=== PATIENT | male | born 1930 | race Caucasian/White ===

== ENCOUNTER → 2018-09-12 | Outpatient (CLI) | payer MEDICARE ==
[2018-09-12 16:57] LABS: Basophils % (A) 0 %; Eosinophils # (A) 0.1 k/uL (0-0.7); Eosinophils % (A) 1 %; HCT 38.9 % (39.0-53.0); HGB 12.8 gm/dL (13.0-17.5); Lymphocytes # (A) 2.1 k/uL (1.0-4.8); Lymphocytes % (A) 20 %; MCH 29.5 pg (25.0-35.0); MCHC 32.8 g/dL (31.0-37.0); MCV 89.9 fL (80.0-100.0); Mean Platelet Volume 6.9; Monocytes # (A) 0.6 k/uL (0-1.0); Monocytes % (A) 6 %; Neutrophils # (A) 7.6 k/uL (1.3-7.7); Neutrophils % (A) 72 %; Platelet Count 334 k/uL (150-450); RBC 4.32 m/uL (4.30-5.90); RDW 14.3 % (11.5-15.5); WBC 10.7 k/uL (3.8-10.6)
== END ==
LOC: LABWHC1 15:59
DX: R19.5 Other fecal abnormalities (principal)
CPT/HCPCS: 36415; 85025

== ENCOUNTER → 2018-10-05 | Outpatient (CLI) | payer MEDICARE ==
--- NOTE | 2018-10-05 14:59 | CT ---
EXAMINATION TYPE: CT abdomen w con DATE OF EXAM: 10/05/2018 COMPARISON: CT abdomen and pelvis August 17, 2012 HISTORY: RUQ swelling, diarrhea. CT DLP: 424 mGycm, Automated Exposure Control for Dose Reduction was Utilized. CONTRAST: CT scan of the abdomen is performed with oral and with IV Contrast, patient injected with 80 mL of Is ovue 300. FINDINGS: LUNG BASES: Dependent atelectasis both bases is present. There is moderate to severe coronary artery calcification in the RCA distribution redemonstrated. LIVER/GB: No significant abnormality is appreciated. PANCREAS: Moderate generalized pancreas atrophy is progressed from prior CT. SPLEEN: No significant abnormality is seen. ADRENALS: No significant abnormality is seen. KIDNEYS: Symmetric cortical medullary uptake and excretion from both kidneys without pyelocaliectasis . Prominent bilateral renal pelvis is consistent with extrarenal pelvises noted on current study new from prior. BOWEL: Oral contrast reaches level of cecum. Normal contrast-filled appendix is seen inferior from ce cum. No suspicious small or large bowel dilatation. Prominence of colonic fecal material noted extend ing into the visualized portion of the sigmoid colon. LYMPH NODES: No greater than 1cm abdominal lymph nodes are appreciated. OSSEOUS STRUCTURES: Mild to moderate disc space narrowing L2-L3 and L3-L4 levels with mild multilevel anterior spurring. Slight levoconvex scoliotic curvature centered L3 level noted on current study. OTHER: Mild to moderate calcified plaque of aorta extends into branch vessels. IMPRESSION: 1. Normal-size appendix. No bowel obstruction. Mild to moderate diffuse colonic fecal stasis felt pre sent.
== END | disposition home or self-care (01) ==
LOC: RADCTMAIN 13:12
PROVIDERS: ATTEND Internal Medicine
DX: R19.7 Diarrhea, unspecified (principal); R19.01 Right upper quadrant abdominal swelling, mass and lump; E87.8 Other disorders of electrolyte and fluid balance, not elsewhere classified
CPT/HCPCS: 82565; 84520; 74160; 36415; Q9967

== ENCOUNTER 2018-10-19 22:11 | Inpatient (IN) | payer MEDICARE ==
[2018-10-19] MEDS ORDERED: SODIUM CHLORIDE 0.9% 1,000 ML IV STA (22:19)
[2018-10-19] MEDS ORDERED: MORPHINE SULFATE 4 MG/ML SYRINGE IV STA (22:19)
[2018-10-19] MEDS ORDERED: PANTOPRAZOLE 40 MG/10 ML VIAL IVP STA (22:19)
[2018-10-19] MEDS: ONDANSETRON 4 MG/2 ML VIAL IVP STA ×2 (23:18→23:22)
[2018-10-19 23:39] LABS: Basophils % (A) 0 %; Eosinophils # (A) 0.1 k/uL (0-0.7); Eosinophils % (A) 1 %; HCT 41.4 % (39.0-53.0); HGB 13.4 gm/dL (13.0-17.5); Lymphocytes # (A) 1.7 k/uL (1.0-4.8); Lymphocytes % (A) 12 %; MCH 29.1 pg (25.0-35.0); MCHC 32.4 g/dL (31.0-37.0); MCV 89.7 fL (80.0-100.0); Mean Platelet Volume 6.3; Monocytes # (A) 0.6 k/uL (0-1.0); Monocytes % (A) 4 %; Neutrophils # (A) 11.6 k/uL (1.3-7.7); Neutrophils % (A) 82 %; Platelet Count 343 k/uL (150-450); RBC 4.61 m/uL (4.30-5.90); RDW 13.8 % (11.5-15.5); WBC 14.1 k/uL (3.8-10.6)
[2018-10-20 00:13] LABS: Appearance,Urine Cloudy (Clear); Bacteria,Urine Rare /hpf; Bilirubin,Urine Negative (Negative); Blood,Urine Small (Negative); Color,Urine Yellow; Glucose,Urine (UA) Negative (Negative); Hyaline Casts,Urine 4 /lpf (0-2); Ketones,Urine Negative (Negative); Leukocyte Esterase,Urine Large (Negative); Mucus,Urine Occasional /hpf; Nitrite,Urine Negative (Negative); Protein,Urine 1+ (Negative); RBC,Urine 9 /hpf (0-5); Specific Gravity,Urine 1.015 (1.001-1.035); Urobilinogen,Urine <2.0 mg/dL (<2.0); WBC,Urine 57 /hpf (0-5)
[2018-10-20 00:19] LABS: Albumin 4.4 g/dL (3.5-5.0); Calcium 9.2 mg/dL (8.4-10.2); Potassium 4.3 mmol/L (3.5-5.1); Total Bilirubin 0.8 mg/dL (0.2-1.3); Total Protein 7.2 g/dL (6.3-8.2)
--- NOTE | 2018-10-20 01:05 | ED ---
Nausea/Vomiting/Diarrhea HPI - General Chief complaint: Nausea/Vomiting/Diarrhea Stated complaint: Abd pain Time Seen by Provider: 10/19/18 22:19 Source: patient, RN notes reviewed, old records reviewed Mode of arrival: EMS Limitations: no limitations - History of Present Illness Initial comments: This is a 88-year-old male the ER for evaluation per patient is poor strain patient's is poor historian history obtained from family. Patient is doing a bowel prep for evaluation of diarrhea by colonoscopy. Scheduled for tomorrow. Patient began to have severe pain nausea and no output with bowel starting prep. Patient resents today with severe pain MD complaint: nausea, diarrhea, abdominal pain -: hour(s) Associated Abdominal Pain: Yes Location: diffuse Radiation: none Severity: moderate Severity scale (1-10): 6 Quality: aching, dull Consistency: constant Improves with: none Worsens with: none Associated Symptoms: loss of appetite, nausea/vomiting, weakness - Related Data Home Medications Medication Instructions Recorded Confirmed Aspirin 325 mg PO DAILY 10/19/18 10/19/18 Atenolol [Tenormin] 25 mg PO DAILY 10/19/18 10/19/18 Benazepril [Lotensin] 5 mg PO HS 10/19/18 10/19/18 Calcium Carbonate [Calcium] 600 mg PO DAILY 10/19/18 10/19/18 Dorzolamide HCl/Pf [Dorzolamide 2% 1 drop BOTH EYES BID 10/19/18 10/19/18 Eye Drop] Furosemide [Lasix] 20 mg PO DAILY 10/19/18 10/19/18 Insulin Aspart Protam & Aspart 10 unit SQ HS 10/19/18 10/19/18 [NovoLOG MIX 70-30 Flexpen] Insulin Aspart Protam & Aspart 26 unit SQ QAM 10/19/18 10/19/18 [Novolog Mix 70-30 Flexpen Syrn] Isosorbide Mononitrate [Isosorbide 30 mg PO DAILY 10/19/18 10/19/18 Mononitrate ER] Multivitamins, Thera [Multivitamin 1 tab PO DAILY 10/19/18 10/19/18 (formulary)] Nitroglycerin Sl Tabs [Nitrostat] 0.4 mg SUBLINGUAL Q5M PRN 10/19/18 10/19/18 Ranitidine HCl 150 mg PO HS 10/19/18 10/19/18 Allergies Allergy/AdvReac Type Severity Reaction Status Date / Time No Known Allergies Allergy Verified 10/19/18 23:27 Review of Systems ROS Statement: Those systems with pertinent positive or pertinent negative responses have been documented in the HPI. ROS Other: All systems not noted in ROS Statement are negative. Past Medical History Past Medical History: Coronary Artery Disease (CAD), Dementia, Diabetes Mellitus, GERD/Reflux, Hypertension Additional Past Medical History / Comment(s): frequent diarrhea with bleeding at the beginning x4 mos-buttocks and coccyx raw,pedal edema,incontinent urine,payton catheter present-following with Dr Fan-very dark urine with foul odor History of Any Multi-Drug Resistant Organisms: None Reported Past Surgical History: Heart Catheterization With Stent Additional Past Surgical History / Comment(s): heart stents x4 Past Anesthesia/Blood Transfusion Reactions: No Reported Reaction Additional Past Anesthesia/Blood Transfusion Reaction / Comment(s): never has had general anesthesia Date of Last Stent Placement:: 30yrs ago Past Psychological History: No Psychological Hx Reported Smoking Status: Former smoker Past Alcohol Use History: None Reported Past Drug Use History: None Reported - Past Family History Mother Family Medical History: No Reported History General Exam Limitations: no limitations General appearance: alert, in no apparent distress Head exam: Present: atraumatic, normocephalic, normal inspection Eye exam: Present: normal appearance, PERRL, EOMI. Absent: scleral icterus, conjunctival injection, periorbital swelling ENT exam: Present: normal exam, mucous membranes moist Neck exam: Present: normal inspection. Absent: tenderness, meningismus, lymphadenopathy Respiratory exam: Present: normal lung sounds bilaterally. Absent: respiratory distress, wheezes, rales, rhonchi, stridor Cardiovascular Exam: Present: regular rate, normal rhythm, normal heart sounds. Absent: systolic murmur, diastolic murmur, rubs, gallop, clicks GI/Abdominal exam: Present: soft, distended, normal bowel sounds. Absent: tenderness, guarding, rebound, rigid Extremities exam: Present: normal inspection, full ROM, normal capillary refill. Absent: tenderness, pedal edema, joint swelling, calf tenderness Back exam: Present: normal inspection Neurological exam: Present: alert, oriented X3, CN II-XII intact Psychiatric exam: Present: normal affect, normal mood Skin exam: Present: warm, dry, intact, normal color. Absent: rash Course Vital Signs 10/19/18 10/20/18 10/20/18 22:50 01:29 02:42 Temperature 97.4 F L 97.9 F Pulse Rate 91 56 L 58 L Respiratory 18 18 18 Rate Blood Pressure 140/89 145/58 134/67 O2 Sat by Pulse 95 99 95 Oximetry - Reevaluation(s) Reevaluation #1: 10/20/18 02:51 Medical records reviewed Reevaluation #2: 10/20/18 02:51 Patient currently having persistent diarrheal bowel movements, still with abdominal pain no nausea vomiting Medical Decision Making - Medical Decision Making 88 male the ER for evaluation of bowel prep. Patient has ileus, will admit for GI evaluation - Lab Data Result diagrams: 10/19/18 23:15 10/19/18 23:15 Lab Results 10/19/18 10/19/18 10/19/18 Range/Units 23:15 23:15 23:15 WBC 14.1 H (3.8-10.6) k/uL RBC 4.61 (4.30-5.90) m/uL Hgb 13.4 (13.0-17.5) gm/dL Hct 41.4 (39.0-53.0) % MCV 89.7 (80.0-100.0) fL MCH 29.1 (25.0-35.0) pg MCHC 32.4 (31.0-37.0) g/dL RDW 13.8 (11.5-15.5) % Plt Count 343 (150-450) k/uL Neutrophils % 82 % Lymphocytes % 12 % Monocytes % 4 % Eosinophils % 1 % Basophils % 0 % Neutrophils # 11.6 H (1.3-7.7) k/uL Lymphocytes # 1.7 (1.0-4.8) k/uL Monocytes # 0.6 (0-1.0) k/uL Eosinophils # 0.1 (0-0.7) k/uL Basophils # 0.0 (0-0.2) k/uL Sodium 134 L (137-145) mmol/L Potassium 4.3 (3.5-5.1) mmol/L Chloride 97 L (98-107) mmol/L Carbon Dioxide 27 (22-30) mmol/L Anion Gap 10 mmol/L BUN 19 (9-20) mg/dL Creatinine 1.13 (0.66-1.25) mg/dL Est GFR (CKD-EPI)AfAm 68 (>60 ml/min/1.73 sqM) Est GFR (CKD-EPI)NonAf 58 (>60 ml/min/1.73 sqM) Glucose 204 H (74-99) mg/dL Plasma Lactic Acid Anuj 1.4 (0.7-2.0) mmol/L Calcium 9.2 (8.4-10.2) mg/dL Total Bilirubin 0.8 (0.2-1.3) mg/dL AST 40 (17-59) U/L ALT 27 (21-72) U/L Alkaline Phosphatase 89 (38-126) U/L Creatine Kinase 207 H (55-170) U/L Total Protein 7.2 (6.3-8.2) g/dL Albumin 4.4 (3.5-5.0) g/dL Amylase 56 (30-110) U/L Lipase 30 (23-300) U/L Urine Color Urine Appearance (Clear) Urine pH (5.0-8.0) Ur Specific [place] (1.001-1.035) Urine Protein (Negative) Urine Glucose (UA) (Negative) Urine Ketones (Negative) Urine Blood (Negative) Urine Nitrite (Negative) Urine Bilirubin (Negative) Urine Urobilinogen (<2.0) mg/dL Ur Leukocyte Esterase (Negative) Urine RBC (0-5) /hpf Urine WBC (0-5) /hpf Urine WBC Clumps (None) /hpf Urine Bacteria (None) /hpf Hyaline Casts (0-2) /lpf Urine Mucus (None) /hpf 10/19/18 Range/Units 23:36 WBC (3.8-10.6) k/uL RBC (4.30-5.90) m/uL Hgb (13.0-17.5) gm/dL Hct (39.0-53.0) % MCV (80.0-100.0) fL MCH (25.0-35.0) pg MCHC (31.0-37.0) g/dL RDW (11.5-15.5) % Plt Count (150-450) k/uL Neutrophils % % Lymphocytes % % Monocytes % % Eosinophils % % Basophils % % Neutrophils # (1.3-7.7) k/uL Lymphocytes # (1.0-4.8) k/uL Monocytes # (0-1.0) k/uL Eosinophils # (0-0.7) k/uL Basophils # (0-0.2) k/uL Sodium (137-145) mmol/L Potassium (3.5-5.1) mmol/L Chloride (98-107) mmol/L Carbon Dioxide (22-30) mmol/L Anion Gap mmol/L BUN (9-20) mg/dL Creatinine (0.66-1.25) mg/dL Est GFR (CKD-EPI)AfAm (>60 ml/min/1.73 sqM) Est GFR (CKD-EPI)NonAf (>60 ml/min/1.73 sqM) Glucose (74-99) mg/dL Plasma Lactic Acid Anuj (0.7-2.0) mmol/L Calcium (8.4-10.2) mg/dL Total Bilirubin (0.2-1.3) mg/dL AST (17-59) U/L ALT (21-72) U/L Alkaline Phosphatase (38-126) U/L Creatine Kinase (55-170) U/L Total Protein (6.3-8.2) g/dL Albumin (3.5-5.0) g/dL Amylase (30-110) U/L Lipase (23-300) U/L Urine Color Yellow Urine Appearance Cloudy (Clear) Urine pH 5.0 (5.0-8.0) Ur Specific [place] 1.015 (1.001-1.035) Urine Protein 1+ H (Negative) Urine Glucose (UA) Negative (Negative) Urine Ketones Negative (Negative) Urine Blood Small H (Negative) Urine Nitrite Negative (Negative) Urine Bilirubin Negative (Negative) Urine Urobilinogen <2.0 (<2.0) mg/dL Ur Leukocyte Esterase Large H (Negative) Urine RBC 9 H (0-5) /hpf Urine WBC 57 H (0-5) /hpf Urine WBC Clumps Few H (None) /hpf Urine Bacteria Rare H (None) /hpf Hyaline Casts 4 H (0-2) /lpf Urine Mucus Occasional H (None) /hpf - Radiology Data Radiology results: report reviewed (X-ray abdominal series and chest shows positive ileus), image reviewed Disposition Clinical Impression: Ileus, Diarrhea Disposition: HOME SELF-CARE Condition: Good Is patient prescribed a controlled substance at d/c from ED?: No
--- NOTE | 2018-10-20 01:21 | XR ---
EXAM: XR Abdomen 2 Views With XR Chest CLINICAL HISTORY: Pain TECHNIQUE: Frontal view of the chest, frontal view of the abdomen/pelvis and upright or decubitus view of the abdomen. COMPARISON: No relevant prior studies available. FINDINGS: Lungs: clear. Pleural space: Unremarkable. No pneumothorax. Heart: Unremarkable. No cardiomegaly. Mediastinum: Unremarkable. Intraperitoneal space: No free air. Gastrointestinal tract: Moderate dilatation of transverse colon measuring up to 8.6 cm, suggest ileus versus distal colonic obstruction. Bones/joints: Osteopenia. Moderate degenerative changes Vasculature: Minimally calcified aorta. IMPRESSION: Moderate dilatation of transverse colon measuring up to 8.6 cm, suggest ileus versus distal colonic obstruction.
[2018-10-20] MEDS ORDERED: SODIUM CHLORIDE 0.9% 1,000 ML IV ONE (01:47)
[2018-10-20] MEDS ORDERED: NITROGLYCERIN SL TABS 0.4 MG TAB SUBLINGUAL PRN (05:14)
[2018-10-20] MEDS ORDERED: IOPAMIDOL-300 CONTRAST 30 ML VIAL (ORAL USE) PO PRN ×3 (06:08→10:54)
--- NOTE | 2018-10-20 06:29 | P.HPIM ---
History of Present Illness H&P Date: 10/20/18 Chief Complaint: Abdominal pain 88-year-old male with history of diabetes CAD and hypertension Patient presents to the hospital today due to severe acute abdominal pain while taking the bowel prep for planned colonoscopy as an outpatient tomorrow. Patient reports severe abdominal distention feeling nauseous with pain all over his abdomen nonradiating otherwise rated as 6-8 out of 10 constant pain. Associated with feeling nauseous no vomiting. Patient has chronic indwelling Payton catheter. Patient indicates that he has chronic diarrhea for which the plan was to have a colonoscopy done in the morning. He's been having diarrhea for over 4 months now nonbloody. Patient also reports some weight loss because of the diarrhea. No history of IBD. No history of C. diff. Patient otherwise denies any fevers or chills denies any confusion or altered mental status, denies any chest pain or trouble breathing In the ER x-ray of the abdomen showed megacolon of the transverse colon measuring 8.6 cm however not associated with any systemic toxicity. Labs showed elevated white count but otherwise his electrolytes were unremarkable. Review of Systems Pertinent positives as noted in HPI. All other systems were reviewed and are negative Past Medical History Past Medical History: Coronary Artery Disease (CAD), Dementia, Diabetes Mellitus, GERD/Reflux, Hypertension Additional Past Medical History / Comment(s): frequent diarrhea with bleeding at the beginning x4 mos-buttocks and coccyx raw,pedal edema,incontinent urine,payton catheter present-following with Dr Fan-very dark urine with foul odor History of Any Multi-Drug Resistant Organisms: None Reported Past Surgical History: Heart Catheterization With Stent Additional Past Surgical History / Comment(s): heart stents x4 Past Anesthesia/Blood Transfusion Reactions: No Reported Reaction Additional Past Anesthesia/Blood Transfusion Reaction / Comment(s): never has had general anesthesia Date of Last Stent Placement:: 30yrs ago Past Psychological History: No Psychological Hx Reported Smoking Status: Former smoker Past Alcohol Use History: None Reported Additional Past Alcohol Use History / Comment(s): quit smoking cigars 10-15 yrs ago,smoked occas Past Drug Use History: None Reported - Past Family History Mother Family Medical History: No Reported History Medications and Allergies Home Medications Medication Instructions Recorded Confirmed Type Aspirin 325 mg PO DAILY 10/19/18 10/19/18 History Atenolol [Tenormin] 25 mg PO DAILY 10/19/18 10/19/18 History Benazepril [Lotensin] 5 mg PO HS 10/19/18 10/19/18 History Calcium Carbonate [Calcium] 600 mg PO DAILY 10/19/18 10/19/18 History Dorzolamide HCl/Pf [Dorzolamide 2% 1 drop BOTH EYES BID 10/19/18 10/19/18 History Eye Drop] Furosemide [Lasix] 20 mg PO DAILY 10/19/18 10/19/18 History Insulin Aspart Protam & Aspart 10 unit SQ HS 10/19/18 10/19/18 History [NovoLOG MIX 70-30 Flexpen] Insulin Aspart Protam & Aspart 26 unit SQ QAM 10/19/18 10/19/18 History [Novolog Mix 70-30 Flexpen Syrn] Isosorbide Mononitrate [Isosorbide 30 mg PO DAILY 10/19/18 10/19/18 History Mononitrate ER] Multivitamins, Thera [Multivitamin 1 tab PO DAILY 10/19/18 10/19/18 History (formulary)] Nitroglycerin Sl Tabs [Nitrostat] 0.4 mg SUBLINGUAL Q5M PRN 10/19/18 10/19/18 History Ranitidine HCl 150 mg PO HS 10/19/18 10/19/18 History Allergies Allergy/AdvReac Type Severity Reaction Status Date / Time No Known Allergies Allergy Verified 10/19/18 23:27 Physical Exam Vitals: Vital Signs Temp Pulse Pulse Resp BP BP Pulse Ox 10/20/18 03:13 97.8 F 57 L 18 144/57 95 10/20/18 02:42 97.9 F 58 L 18 134/67 95 10/20/18 01:29 56 L 18 145/58 99 10/19/18 22:50 97.4 F L 91 18 140/89 95 Intake and Output 10/19/18 10/19/18 10/20/18 14:59 22:59 06:59 Output Total 400 Balance -400 Output: Urine 400 Other: Voiding Method Indwelling Catheter Weight 71.214 kg 70.7 kg Constitutional: No acute distress, conversant, pleasant, sleeping easy arousable Eyes: Anicteric sclerae, moist conjunctiva, no lid-lag Pupils equal round reactive to light ENMT: NC/AT Oropharynx clear, no erythema, or exudates Neck: Supple, FROM, no masses, or JVD No carotid bruits No thyromegaly Lungs: Clear to auscultation Clear to percussion Normal respiratory effort, no accessory muscle use Cardiovascular: Heart regular in rate and rhythm, No murmurs, gallops, or rubs pedal edema bilateral Abdominal: Soft, distended upper abd, audible bowel sounds, no tenderness to palpation Nontender, no guarding, rebound or rigidity Abdomen moving with respiration exaggerated bowel sounds No hepatomegaly, No splenomegaly No palpable mass No abdominal wall hernia noted chronic indwelling payton cath in place raw looking skin around the anus soiled with fecal material no evidence of bleeding Skin: Normal temperature, tone, texture, turgor No induration No subcutaneous nodules No rash, lesions No ulcers Extremities: No digital cyanosis No clubbing Pedal pulses not palpabable due to pedal edema bilaterally Radial pulses intact and symmetrical No calf tenderness capillary refill immediate Psychiatric: Alert and oriented to person, place Appropriate affect fair judgment Neuro Muscles Strength 4/5 in all 4 extremities Sensation to light touch grossly present throughout Cranial nerves II-XII grossly intact No focal sensory deficits Lymphatics: no palpable cervical or supraclavicular , or inguinal lymph nodes Results CBC & Chem 7: 10/19/18 23:15 10/19/18 23:15 Labs: Abnormal Lab Results - Last 24 Hours (Table) 10/19/18 10/19/18 10/19/18 Range/Units 23:15 23:15 23:36 WBC 14.1 H (3.8-10.6) k/uL Neutrophils # 11.6 H (1.3-7.7) k/uL Sodium 134 L (137-145) mmol/L Chloride 97 L (98-107) mmol/L Glucose 204 H (74-99) mg/dL Creatine Kinase 207 H (55-170) U/L Urine Protein 1+ H (Negative) Urine Blood Small H (Negative) Ur Leukocyte Esterase Large H (Negative) Urine RBC 9 H (0-5) /hpf Urine WBC 57 H (0-5) /hpf Urine WBC Clumps Few H (None) /hpf Urine Bacteria Rare H (None) /hpf Hyaline Casts 4 H (0-2) /lpf Urine Mucus Occasional H (None) /hpf Thrombosis Risk Factor Assmnt - Choose All That Apply Each Risk Factor Represents 3 Points: Age 75 years or older Thrombosis Risk Factor Assessment Total Risk Factor Score: 3 Thrombosis Risk Factor Assessment Level: Moderate Risk Assessment and Plan Assessment: 88-year-old male with history of diabetes, CAD, hypertension. Admitted as inpatient with anticipated length of stay more than 48 hours due to megacolon and abdominal pain. Patient was found to be nontoxic, x-ray revealed transverse colon diameter of 8.6 cm patient , we'll follow up on CAT scan of the abdomen and surgery recommendations. Patient vital signs are stable he was started on broad-spectrum antibiotics. electrolytes are unremarkable. Plan: Megacolon, nontoxic, patient was receiving bowel prep for planned C scope today as an outpatient. unknown underlying cause (IBD, C.diff needs to be ruled out) Chronic diarrhea Chronic indwelling Payton catheter Chronic conditions Chronic diarrhea Hypertension Diabetes mellitus GERD CAD Plan Continue with IV fluid hydration Start Flagyl Continue Rocephin Nothing by mouth Surgery consult Check computed tomography scan of the abdomen Serial abdominal exam Insulin sliding scale Check C. diff Close monitoring of electrolytes and hemoglobin Transferred to stepdown for closer monitoring of the patient if patient becomes toxic (fever, tachycardia, altered mental status, hypotensive) he would need to be transferred to ICU DVT prophylaxis mechanical Surrogate decision-maker: Patient CODE STATUS: No code Discussed with: Patient, ER, RN Anticipated discharge: 48-[address]: Pending clinical course A total of 60 minutes was spent on the care of this complex patient more than 50% of the time was spent in counseling and care coordination.
[2018-10-20] MEDS ORDERED: PANTOPRAZOLE 40 MG TABLET PO SCH (07:30)
[2018-10-20 08:01] LABS: Basophils % (A) 0 %; Eosinophils # (A) 0.1 k/uL (0-0.7); Eosinophils % (A) 1 %; HCT 37.7 % (39.0-53.0); HGB 12.4 gm/dL (13.0-17.5); Lymphocytes # (A) 2.9 k/uL (1.0-4.8); Lymphocytes % (A) 27 %; MCH 29.7 pg (25.0-35.0); MCHC 32.8 g/dL (31.0-37.0); MCV 90.5 fL (80.0-100.0); Monocytes # (A) 0.5 k/uL (0-1.0); Monocytes % (A) 5 %; Neutrophils # (A) 6.8 k/uL (1.3-7.7); Neutrophils % (A) 65 %; Platelet Count 284 k/uL (150-450); RBC 4.17 m/uL (4.30-5.90); RDW 13.8 % (11.5-15.5); WBC 10.4 k/uL (3.8-10.6)
[2018-10-20 08:14] LABS: Albumin 3.3 g/dL (3.5-5.0); Calcium 8.3 mg/dL (8.4-10.2); Potassium 3.7 mmol/L (3.5-5.1); Total Bilirubin 0.4 mg/dL (0.2-1.3); Total Protein 5.8 g/dL (6.3-8.2)
[2018-10-20] MEDS: INSULIN ASPART (NovoLOG) 100 UNIT/ML VIAL SQ SCH ×4 (08:36→21:27)
--- NOTE | 2018-10-20 08:57 | CT ---
EXAMINATION TYPE: CT abdomen pelvis w con DATE OF EXAM: 10/20/2018 COMPARISON: 10/05/2018 HISTORY: ileus, megacolon CT DLP: 737.1 mGycm Automated exposure control for dose reduction was used. TECHNIQUE: Helical acquisition of images was performed from the lung bases through the pelvis. CONTRAST: Performed with Oral Contrast and with IV Contrast, patient injected with 100 mL of Isovue 300. FINDINGS: There is diffuse long segment bowel wall thickening and pericolonic inflammatory fat stranding throug hout the entirety of the sigmoid colon extending into the rectum there is also fascial thickening and few prominent mesial rectal lymph nodes that are sub-5 mm. There is very mild inflammatory fat stran ding surrounding the descending colon and prominence of the caliber of the remainder of the colon wit hout dilatation with the transverse colon measuring up to 5 cm and displaying air-fluid levels. There is some slightly high density mixed oral contrast that extends through the sigmoid colon into the re ctum. Findings favor partial/early colonic obstruction without complete obstruction. There is no jose colonic abscess at this time. The lung bases demonstrate mild emphysematous change. Probable focus of atelectasis at the right lung base. Cardiomediastinal silhouette appears mildly enlarged. There is a very small hiatal hernia seen . Hypoattenuation that is wedge-shaped is seen in segment IVb of the liver, a typical location for foca l fatty infiltration with more diffuse mild degree hepatic steatosis seen throughout the liver. There is mild pancreatic atrophy without ductal dilatation. 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 There are bilateral extrarenal p elvises sees without hydronephrosis. The adrenal glands are symmetric and unremarkable. Spleen is als o unremarkable. There is moderate atherosclerosis of the upper abdominal aorta and severe of the dist al abdominal aorta and its branches. There is air seen multifocally through the nondistended urinary bladder with a Berg catheter in plac e. Urinary bladder is nondistended. Correlate with urinalysis to exclude cystitis, however air is lik michael from placement of the urinary bladder catheter. Prostate gland is heterogenous. The osseous structures appear grossly intact with moderate degenerative changes of the lumbosacral sp ine. There are few scattered nonspecific punctate sclerotic foci. Cholelithiasis is incidentally note d. IMPRESSION: 1. DIFFUSE LONG SEGMENT COLORECTAL WALL THICKENING AND EXTENSIVE INFLAMMATORY FAT STRANDING EXTENDING INTO THE DESCENDING COLON. AT THE DESCENDING COLON AND SIGMOID JUNCTION AN AREA OF NARROWING MAY REP RESENT COLONIC SPASM. FINDINGS LIKELY REPRESENT ACUTE COLITIS OF INFECTIOUS OR INFLAMMATORY ETIOLOGY GIVEN THE LONG SEGMENT INVOLVEMENT. HOWEVER COLONOSCOPY IS RECOMMENDED AFTER RESOLUTION TO EXCLUDE NE OPLASM. 2. THE ABOVE FINDINGS RESULT IN PARTIAL/EARLY COLONIC OBSTRUCTION WITHOUT COMPLETE OBSTRUCTION SEEN. 3. NUMEROUS FOCI OF AIR WITHIN THE URINARY BLADDER LIKELY FROM INSTRUMENTATION HOWEVER URINALYSIS IS RECOMMENDED TO ENSURE NO SUPERIMPOSED CYSTITIS.
[2018-10-20] MEDS: ATENOLOL 25 MG TAB PO SCH (09:00)
[2018-10-20] MEDS ORDERED: CALCIUM CARBONATE 500 MG CHEWABLE PO SCH (09:00)
[2018-10-20] MEDS ORDERED: PANTOPRAZOLE 40 MG/10 ML VIAL IVP SCH (09:15)
[2018-10-20] MEDS: MULTIVITAMINS, THERA 1 EACH TAB PO SCH (09:19)
[2018-10-20] MEDS: ISOSORBIDE MONONITRATE ER 30 MG TAB.ER.24H PO SCH (09:25)
[2018-10-20] MEDS: metroNIDAZOLE-NS PMX 500 MG in SALINE 1 100ML.BAG IVPB SCH ×2 (09:25→16:39)
[2018-10-20 11:37] LABS: Glucose,Whole Blood 148 mg/dL (75-99)
--- NOTE | 2018-10-20 13:26 | P.PN ---
Subjective Progress Note Date: 10/20/18 Principal diagnosis: diarrhea Patient is an 88 yo CM with a hx of chronic diarrhea, dementia, chronic payton cath, DM 2, CAD, and HTN who presented to the ED with complaints of severe abdominal pain. Patient had been taking a bowel prep for colonsocopy. IN the ED he underwent an extensive evaluation. His vital signs were within normal limits. Laboratory analysis showed WBC 14.1. Urinalysis was consistent with chronic payton. Acute abdominal series showed colonic obstruction. He was started on IVF and abx and was admitted. There was concern for megacolon and CT was ordered whi ch showed Colitis with partial colonic obstruction. GI and surgery wer consulted. Surgery recommends IV ABX and repeat imaging. Patient seen and examined at bedside. Family is present patient has slight dementia and family aids with hx taking. Patient still with diarrhea, no abd pain. Seems to be doing better than yesterday. Denies CP and SOB. Objective - Vital Signs Vital signs: Vital Signs Temp 98.9 F 10/20/18 07:00 Pulse 51 L 10/20/18 07:00 Resp 16 10/20/18 07:00 BP 131/63 10/20/18 07:00 Pulse Ox 97 10/20/18 07:00 Intake & Output 10/19/18 10/20/18 10/20/18 18:59 06:59 18:59 Intake Total 100 Output Total 400 400 Balance -400 -300 Weight 70.7 kg Intake: Intake, IV Titration 100 Amount metroNIDAZOLE-NS PMX 500 100 mg In Saline 1 100ml.bag @ 100 mls/hr IVPB Q8HR [facility] Rx#:[id number] Output: Urine 400 400 Other: Voiding Method Indwelling Catheter Indwelling Catheter # Bowel Movements 3 - Exam General: ill appearing, no distress, appears at stated age Derm: warm, dry Head: atraumatic, normocephalic, symmetric Eyes: EOMI, no lid lag, anicteric sclera Mouth: no lip lesion, mucus membranes moist Cardiovascular: S1S2 reg, no murmur, positive posterior tibial pulse bilateral, Lungs: CTA bilateral, no rhonchi, no rales , no accessory muscle use Abdominal: soft, nontender to palpation, no guarding, no appreciable organomegaly Ext: no gross muscle atrophy, no edema, no contractures Neuro: CN II-XI grossly intact, no focal neuro deficits Psych: Alert, oriented, appropriate affect, has some difficulty remembering - Labs CBC & Chem 7: 10/20/18 07:46 10/20/18 07:46 Labs: Abnormal Lab Results - Last 24 Hours (Table) 10/19/18 10/19/18 10/19/18 Range/Units 23:15 23:15 23:36 WBC 14.1 H (3.8-10.6) k/uL RBC (4.30-5.90) m/uL Hgb (13.0-17.5) gm/dL Hct (39.0-53.0) % Neutrophils # 11.6 H (1.3-7.7) k/uL Sodium 134 L (137-145) mmol/L Chloride 97 L (98-107) mmol/L Glucose 204 H (74-99) mg/dL POC Glucose (mg/dL) (75-99) mg/dL Calcium (8.4-10.2) mg/dL Creatine Kinase 207 H (55-170) U/L Total Protein (6.3-8.2) g/dL Albumin (3.5-5.0) g/dL Urine Protein 1+ H (Negative) Urine Blood Small H (Negative) Ur Leukocyte Esterase Large H (Negative) Urine RBC 9 H (0-5) /hpf Urine WBC 57 H (0-5) /hpf Urine WBC Clumps Few H (None) /hpf Urine Bacteria Rare H (None) /hpf Hyaline Casts 4 H (0-2) /lpf Urine Mucus Occasional H (None) /hpf 10/20/18 10/20/18 10/20/18 Range/Units 07:46 07:46 11:25 WBC (3.8-10.6) k/uL RBC 4.17 L (4.30-5.90) m/uL Hgb 12.4 L (13.0-17.5) gm/dL Hct 37.7 L (39.0-53.0) % Neutrophils # (1.3-7.7) k/uL Sodium (137-145) mmol/L Chloride (98-107) mmol/L Glucose 152 H (74-99) mg/dL POC Glucose (mg/dL) 148 H (75-99) mg/dL Calcium 8.3 L (8.4-10.2) mg/dL Creatine Kinase (55-170) U/L Total Protein 5.8 L (6.3-8.2) g/dL Albumin 3.3 L (3.5-5.0) g/dL Urine Protein (Negative) Urine Blood (Negative) Ur Leukocyte Esterase (Negative) Urine RBC (0-5) /hpf Urine WBC (0-5) /hpf Urine WBC Clumps (None) /hpf Urine Bacteria (None) /hpf Hyaline Casts (0-2) /lpf Urine Mucus (None) /hpf Microbiology - Last 24 Hours (Table) 10/19/18 23:36 Urine Culture - Preliminary Urine,Voided Assessment and Plan Assessment: Colitis with colon obstruction - Continue Rocephin and flagyl - IVF - GI and surgery recs - Full liquid diet per surgery - Pain control - Antiemetics - c diff pending Chronic diarrhea - GI recs HTN - atenolol, lisinopril - hold X - follow BP - Controlled GERD - Protonix DM 2 - hold 70/30 CAD - ASA on hold incase procedure needed Chronic payton - no clinic signs of infection - continue outpatient follow-up DVT prophylaxis: Heparin Discussed with: Patient, family, nursing Anticipated discharge: 3-[address]: home A total of [35] minutes was spent on the care of this complex patient more than 50% of the time was spent in counseling and care coordination.
--- NOTE | 2018-10-20 14:27 | P.GSCN ---
History of Present Illness Consult date: 10/20/18 Reason for Consult: megacolon Requesting physician: Caden Chong History of present illness: CHIEF COMPLAINT: megacolon HISTORY OF PRESENT ILLNESS: 88 year old male who was admitted to the hospital with abdominal pain. General surgery was consulted for further evaluation. Patient's family is at the bedside and provides majority of HPI. Family states patient has had chronic diarrhea for the last 4 months. Patient was scheduled for colonoscopy outpatient today. He began his bowel prep yesterday and began having severe abdominal pain and came to the ER for further evaluation. Patient denies abdominal pain at this time. Denies nausea or vomiting. He reports brown liquid stools this morning. He is hungry and asking to eat. PAST MEDICAL HISTORY: See list. PAST SURGICAL HISTORY: See list. SOCIAL HISTORY: No illicit drug use. REVIEW OF SYSTEMS: CONSTITUTIONAL: Denies fever or chills. HEENT: Denies blurred vision, vision changes, or eye pain. Denies hemoptysis CARDIOVASCULAR: Denies chest pain or pressure. RESPIRATORY: No shortness of breath. GASTROINTESTINAL: Refer to HPI for pertinent findings HEMATOLOGIC: Denies bleeding disorders. GENITOURINARY: Denies any blood in urine. SKIN: Denies pruitis. Denies rash. PHYSICAL EXAM: VITAL SIGNS: Reviewed. GENERAL: Well-developed in no acute distress. HEENT: No sclera icterus. Extraocular movements grossly intact. Moist buccal mucosa. Head is atraumatic, normocephalic. ABDOMEN: Soft. Nondistended. Nontender. Positive bowel sounds. NEUROLOGIC: Alert and oriented x 2. Cranial nerves II through XII grossly intact. IMAGING: CT abdomen and pelvis: Diffuse long segment colorectal wall thickening and extensive inflammatory fat stranding extending into the descending colon. At the descending colon and sigmoid junction an area of narrowing may represent colonic spasm. Findings likely represent acute colitis or infectious or inflammatory etiology given the long segment involvement. Colonoscopy recommended after resolution to exclude neoplasm. Above findings result and partial/early colonic obstruction without complete obstruction. ASSESSMENT: 1. Abdominal pain 2. Colitis with partial colonic obstruction 3. Chronic diarrhea PLAN: 1. Continue antibiotics 2. Full liquid diet. Do not advance diet. 3. Repeat CT with oral contrast on Wednesday 4. If repeat CT does not show improvement or progresses to complete obstruction, surgical intervention recommend. Nurse practitioner note has been reviewed by physician. Signing provider agrees with the documented findings, assessment, and plan of care. Past Medical History Past Medical History: Coronary Artery Disease (CAD), Dementia, Diabetes Mellitus, GERD/Reflux, Hypertension Additional Past Medical History / Comment(s): frequent diarrhea with bleeding at the beginning x4 mos-buttocks and coccyx raw,pedal edema,incontinent urine,payton catheter present-following with Dr Fan-very dark urine with foul odor History of Any Multi-Drug Resistant Organisms: None Reported Past Surgical History: Heart Catheterization With Stent Additional Past Surgical History / Comment(s): heart stents x4 Past Anesthesia/Blood Transfusion Reactions: No Reported Reaction Additional Past Anesthesia/Blood Transfusion Reaction / Comm: never has had general anesthesia Date of Last Stent Placement:: 30yrs ago Past Psychological History: No Psychological Hx Reported Smoking Status: Former smoker Past Alcohol Use History: None Reported Additional Past Alcohol Use History / Comment(s): quit smoking cigars 10-15 yrs ago,smoked occas Past Drug Use History: None Reported - Past Family History Mother Family Medical History: No Reported History Medications and Allergies Home Medications Medication Instructions Recorded Confirmed Type Aspirin 325 mg PO DAILY 10/19/18 10/19/18 History Atenolol [Tenormin] 25 mg PO DAILY 10/19/18 10/19/18 History Benazepril [Lotensin] 5 mg PO HS 10/19/18 10/19/18 History Calcium Carbonate [Calcium] 600 mg PO DAILY 10/19/18 10/19/18 History Dorzolamide HCl/Pf [Dorzolamide 2% 1 drop BOTH EYES BID 10/19/18 10/19/18 History Eye Drop] Furosemide [Lasix] 20 mg PO DAILY 10/19/18 10/19/18 History Insulin Aspart Protam & Aspart 10 unit SQ HS 10/19/18 10/19/18 History [NovoLOG MIX 70-30 Flexpen] Insulin Aspart Protam & Aspart 26 unit SQ QAM 10/19/18 10/19/18 History [Novolog Mix 70-30 Flexpen Syrn] Isosorbide Mononitrate [Isosorbide 30 mg PO DAILY 10/19/18 10/19/18 History Mononitrate ER] Multivitamins, Thera [Multivitamin 1 tab PO DAILY 10/19/18 10/19/18 History (formulary)] Nitroglycerin Sl Tabs [Nitrostat] 0.4 mg SUBLINGUAL Q5M PRN 10/19/18 10/19/18 Hi story Ranitidine HCl 150 mg PO HS 10/19/18 10/19/18 History Allergies Allergy/AdvReac Type Severity Reaction Status Date / Time No Known Allergies Allergy Verified 10/19/18 23:27 Surgical - Exam Vital Signs Temp Pulse Resp BP Pulse Ox 97.4 F L 91 18 140/89 95 10/19/18 22:50 10/19/18 22:50 10/19/18 22:50 10/19/18 22:50 10/19/18 22:50 Results - Labs 10/20/18 07:46 10/20/18 07:46 Abnormal Lab Results - Last 24 Hours (Table) 10/19/18 10/19/18 10/19/18 Range/Units 23:15 23:15 23:36 WBC 14.1 H (3.8-10.6) k/uL RBC (4.30-5.90) m/uL Hgb (13.0-17.5) gm/dL Hct (39.0-53.0) % Neutrophils # 11.6 H (1.3-7.7) k/uL Sodium 134 L (137-145) mmol/L Chloride 97 L (98-107) mmol/L Glucose 204 H (74-99) mg/dL POC Glucose (mg/dL) (75-99) mg/dL Calcium (8.4-10.2) mg/dL Creatine Kinase 207 H (55-170) U/L Total Protein (6.3-8.2) g/dL Albumin (3.5-5.0) g/dL Urine Protein 1+ H (Negative) Urine Blood Small H (Negative) Ur Leukocyte Esterase Large H (Negative) Urine RBC 9 H (0-5) /hpf Urine WBC 57 H (0-5) /hpf Urine WBC Clumps Few H (None) /hpf Urine Bacteria Rare H (None) /hpf Hyaline Casts 4 H (0-2) /lpf Urine Mucus Occasional H (None) /hpf 10/20/18 10/20/18 10/20/18 Range/Units 07:46 07:46 11:25 WBC (3.8-10.6) k/uL RBC 4.17 L (4.30-5.90) m/uL Hgb 12.4 L (13.0-17.5) gm/dL Hct 37.7 L (39.0-53.0) % Neutrophils # (1.3-7.7) k/uL Sodium (137-145) mmol/L Chloride (98-107) mmol/L Glucose 152 H (74-99) mg/dL POC Glucose (mg/dL) 148 H (75-99) mg/dL Calcium 8.3 L (8.4-10.2) mg/dL Creatine Kinase (55-170) U/L Total Protein 5.8 L (6.3-8.2) g/dL Albumin 3.3 L (3.5-5.0) g/dL Urine Protein (Negative) Urine Blood (Negative) Ur Leukocyte Esterase (Negative) Urine RBC (0-5) /hpf Urine WBC (0-5) /hpf Urine WBC Clumps (None) /hpf Urine Bacteria (None) /hpf Hyaline Casts (0-2) /lpf Urine Mucus (None) /hpf Microbiology - Last 24 Hours (Table) 10/19/18 23:36 Urine Culture - Preliminary Urine,Voided Diabetes panel 10/19/18 10/20/18 Range/Units 23:15 07:46 Sodium 134 L 138 (137-145) mmol/L Potassium 4.3 3.7 (3.5-5.1) mmol/L Chloride 97 L 104 (98-107) mmol/L Carbon Dioxide 27 30 (22-30) mmol/L BUN 19 14 (9-20) mg/dL Creatinine 1.13 1.07 (0.66-1.25) mg/dL Glucose 204 H 152 H (74-99) mg/dL Calcium 9.2 8.3 L (8.4-10.2) mg/dL AST 40 25 (17-59) U/L ALT 27 27 (21-72) U/L Alkaline Phosphatase 89 71 (38-126) U/L Total Protein 7.2 5.8 L (6.3-8.2) g/dL Albumin 4.4 3.3 L (3.5-5.0) g/dL Calcium panel 10/19/18 10/20/18 Range/Units 23:15 07:46 Calcium 9.2 8.3 L (8.4-10.2) mg/dL Albumin 4.4 3.3 L (3.5-5.0) g/dL Pituitary panel 10/19/18 10/20/18 Range/Units 23:15 07:46 Sodium 134 L 138 (137-145) mmol/L Potassium 4.3 3.7 (3.5-5.1) mmol/L Chloride 97 L 104 (98-107) mmol/L Carbon Dioxide 27 30 (22-30) mmol/L BUN 19 14 (9-20) mg/dL Creatinine 1.13 1.07 (0.66-1.25) mg/dL Glucose 204 H 152 H (74-99) mg/dL Calcium 9.2 8.3 L (8.4-10.2) mg/dL Adrenal panel 10/19/18 10/20/18 Range/Units 23:15 07:46 Sodium 134 L 138 (137-145) mmol/L Potassium 4.3 3.7 (3.5-5.1) mmol/L Chloride 97 L 104 (98-107) mmol/L Carbon Dioxide 27 30 (22-30) mmol/L BUN 19 14 (9-20) mg/dL Creatinine 1.13 1.07 (0.66-1.25) mg/dL Glucose 204 H 152 H (74-99) mg/dL Calcium 9.2 8.3 L (8.4-10.2) mg/dL Total Bilirubin 0.8 0.4 (0.2-1.3) mg/dL AST 40 25 (17-59) U/L ALT 27 27 (21-72) U/L Alkaline Phosphatase 89 71 (38-126) U/L Total Protein 7.2 5.8 L (6.3-8.2) g/dL Albumin 4.4 3.3 L (3.5-5.0) g/dL
[2018-10-20] MEDS: DORZOLAMIDE HCL 2% DROPS 10 ML BTL BOTH EYES SCH ×2 (15:33→21:26)
--- NOTE | 2018-10-20 15:37 | P.CONS ---
History of Present Illness - Reason for Consult Consult date: 10/20/18 EGD colonoscopy Requesting physician: Caden Chong - Chief Complaint Nausea vomiting abdominal pain - History of Present Illness 88-year-old male dementia history obtained from medical attending and medical records. Patient was scheduled today with Dr. Carmen for EGD colonoscopy as an outpatient for evaluation of diarrhea. Patient started his bowel prep yesterday developed an increased nausea vomiting abdominal pain presented to ER for further evaluation. Abdominal x-rays moderate dilatation of transverse colon measuring up to 8.6 and meters suggests ileus versus distal colonic obstruction. CT abdomen diffuse long segment colorectal wall thickening and extensive inflammation fat stranding extending into the descending colon. At the descending colon and sigmoid area of narrowing may represent spasm. Findings likely represent acute colitis or infectious or inflammatory etiology however underlying neoplasm could not be excluded. Findings suggestive partial early colonic obstruction without complete obstruction seen. White count 14.1 presently 10.4. Hemoglobin 12.4. BUN 19. Creatinine 1.1. Sodium 134 potassium 4.3. Patient has been seen by general surgery no surgical intervention planned at this time. Unsure if patient has had a previous colonoscopy in the past. Review of Systems Obtained from medical records Constitutional: Denies fever, chills, sweats, weight gain, or loss. Dementia. HEENT: Negative for migraines, blurred vision or loss, earaches, drainage, tinnitus, oral mucosal lesions, dysphagia, or odynophagia. Cardiac: Negative for chest pain, arrhythmias, or palpitation. Respiratory: Negative for shortness of breath, hemoptysis, cough, or sputum production. Gastrointestinal: See HPI for pertinent findings. Genitourinary: Negative for hematuria, urgency, frequency, polyuria, dysuria, or penile discharge. Musculoskeletal: Negative for muscle aches, swelling, arthritis, and arthralgias. Neurologic: Negative for stroke or TIA. Endocrine: Negative for thyroid problems. Skin: Negative for rash or itching. Psychiatric: Negative history for depression and anxietyle Past Medical History Past Medical History: Coronary Artery Disease (CAD), Dementia, Diabetes Mellitus, GERD/Reflux, Hypertension Additional Past Medical History / Comment(s): frequent diarrhea with bleeding at the beginning x4 mos-buttocks and coccyx raw,pedal edema,incontinent urine,payton catheter present-following with Dr Fan-very dark urine with foul odor History of Any Multi-Drug Resistant Organisms: None Reported Past Surgical History: Heart Catheterization With Stent Additional Past Surgical History / Comment(s): heart stents x4 Past Anesthesia/Blood Transfusion Reactions: No Reported Reaction Additional Past Anesthesia/Blood Transfusion Reaction / Comm: never has had general anesthesia Date of Last Stent Placement:: 30yrs ago Past Psychological History: No Psychological Hx Reported Smoking Status: Former smoker Past Alcohol Use History: None Reported Additional Past Alcohol Use History / Comment(s): quit smoking cigars 10-15 yrs ago,smoked occas Past Drug Use History: None Reported - Past Family History Mother Family Medical History: No Reported History Medications and Allergies Home Medications Medication Instructions Recorded Confirmed Type Aspirin 325 mg PO DAILY 10/19/18 10/19/18 History Atenolol [Tenormin] 25 mg PO DAILY 10/19/18 10/19/18 History Benazepril [Lotensin] 5 mg PO HS 10/19/18 10/19/18 History Calcium Carbonate [Calcium] 600 mg PO DAILY 10/19/18 10/19/18 History Dorzolamide HCl/Pf [Dorzolamide 2% 1 drop BOTH EYES BID 10/19/18 10/19/18 History Eye Drop] Furosemide [Lasix] 20 mg PO DAILY 10/19/18 10/19/18 History Insulin Aspart Protam & Aspart 10 unit SQ HS 10/19/18 10/19/18 History [NovoLOG MIX 70-30 Flexpen] Insulin Aspart Protam & Aspart 26 unit SQ QAM 10/19/18 10/19/18 History [Novolog Mix 70-30 Flexpen Syrn] Isosorbide Mononitrate [Isosorbide 30 mg PO DAILY 10/19/18 10/19/18 History Mononitrate ER] Multivitamins, Thera [Multivitamin 1 tab PO DAILY 10/19/18 10/19/18 History (formulary)] Nitroglycerin Sl Tabs [Nitrostat] 0.4 mg SUBLINGUAL Q5M PRN 10/19/18 10/19/18 History Ranitidine HCl 150 mg PO HS 10/19/18 10/19/18 History Allergies Allergy/AdvReac Type Severity Reaction Status Date / Time No Known Allergies Allergy Verified 10/19/18 23:27 Physical Exam Vitals: Vital Signs Temp Pulse Pulse Resp BP BP Pulse Ox 10/20/18 07:00 98.9 F 51 L 16 131/63 97 10/20/18 03:13 97.8 F 57 L 18 144/57 95 10/20/18 02:42 97.9 F 58 L 18 134/67 95 10/20/18 01:29 56 L 18 145/58 99 10/19/18 22:50 97.4 F L 91 18 140/89 95 Intake and Output 10/19/18 10/20/18 10/20/18 22:59 06:59 14:59 Intake Total 100 Output Total 400 400 Balance -400 -300 Intake: Intake, IV Titration 100 Amount metroNIDAZOLE-NS PMX 500 100 mg In Saline 1 100ml.bag @ 100 mls/hr IVPB Q8HR [facility] Rx#:[id number] Output: Urine 400 400 Other: Voiding Method Indwelling Catheter Indwelling Catheter # Bowel Movements 3 Weight 71.214 kg 70.7 kg General appearance: The patient is alert, in no acute distress. HET: Head is normocephalic and atraumatic. Pupils are equal and reactive. Oropharynx is clear without lesions. Neck: Supple without lymphadenopathy. Trachea midline. Heart: S1 S2. Regular rate and rhythm. Lungs: No crackles or wheezes are heard. Abdomen: Soft, nontender, nondistended with bowel sounds. No peritoneal signs. No palpable organomegaly or masses. Extremities: Normal skin color and turgor. No cyanosis, rash, ulceration, clubbing, or edema. Radial and pedal pulses are 2/4 bilaterally. Neurological: No focal deficits. Strength and sensation are grossly intact. Results CBC & Chem 7: 10/20/18 07:46 10/20/18 07:46 Labs: Abnormal Lab Results - Last 24 Hours (Table) 10/19/18 10/19/18 10/19/18 Range/Units 23:15 23:15 23:36 WBC 14.1 H (3.8-10.6) k/uL RBC (4.30-5.90) m/uL Hgb (13.0-17.5) gm/dL Hct (39.0-53.0) % Neutrophils # 11.6 H (1.3-7.7) k/uL Sodium 134 L (137-145) mmol/L Chloride 97 L (98-107) mmol/L Glucose 204 H (74-99) mg/dL POC Glucose (mg/dL) (75-99) mg/dL Calcium (8.4-10.2) mg/dL Creatine Kinase 207 H (55-170) U/L Total Protein (6.3-8.2) g/dL Albumin (3.5-5.0) g/dL Urine Protein 1+ H (Negative) Urine Blood Small H (Negative) Ur Leukocyte Esterase Large H (Negative) Urine RBC 9 H (0-5) /hpf Urine WBC 57 H (0-5) /hpf Urine WBC Clumps Few H (None) /hpf Urine Bacteria Rare H (None) /hpf Hyaline Casts 4 H (0-2) /lpf Urine Mucus Occasional H (None) /hpf 10/20/18 10/20/18 10/20/18 Range/Units 07:46 07:46 11:25 WBC (3.8-10.6) k/uL RBC 4.17 L (4.30-5.90) m/uL Hgb 12.4 L (13.0-17.5) gm/dL Hct 37.7 L (39.0-53.0) % Neutrophils # (1.3-7.7) k/uL Sodium (137-145) mmol/L Chloride (98-107) mmol/L Glucose 152 H (74-99) mg/dL POC Glucose (mg/dL) 148 H (75-99) mg/dL Calcium 8.3 L (8.4-10.2) mg/dL Creatine Kinase (55-170) U/L Total Protein 5.8 L (6.3-8.2) g/dL Albumin 3.3 L (3.5-5.0) g/dL Urine Protein (Negative) Urine Blood (Negative) Ur Leukocyte Esterase (Negative) Urine RBC (0-5) /hpf Urine WBC (0-5) /hpf Urine WBC Clumps (None) /hpf Urine Bacteria (None) /hpf Hyaline Casts (0-2) /lpf Urine Mucus (None) /hpf Microbiology - Last 24 Hours (Table) 10/19/18 23:36 Urine Culture - Preliminary Urine,Voided Abdominal x-ray: report reviewed (Dr. Young) CT scan - abdomen: report reviewed (Dr. Young) Assessment and Plan (1) Abdominal pain Narrative/Plan: 88-year-old gentleman admitted with intractable abdominal pain nausea vomiting after starting a bowel prep for outpatient evaluation of nonbloody diarrhea. CT imaging reported diffuse long segment of colorectal wall thickening extensive inflammatory fat stranding extending into the descending colon. In the descending colon and sigmoid junction there is an area of narrowing possible colonic spasm possible neoplasm an underlying malignant possible benign stricture could not be excluded. Additionally an acute colitis or infectious inflammatory etiology within this long segment also within the differential. Current Visit: Yes Status: Acute Code(s): R10.9 - UNSPECIFIED ABDOMINAL PAIN SNOMED Code(s): 20812346 Plan: 1. Contract Modeler will discuss with family inpatient endoscopic exams EGD and/or flexible sigmoidoscopy. 2. Clear liquid diet. Repeat CT abdomen and pelvis scheduled for Wednesday surgical intervention if patient develops complete obstruction. Thank you for this kind referral and the opportunity to participate in the care of your patient. This consultation was discussed with Dr. Young. The impression and plan of care have been directed as dictated.
[2018-10-20 17:05] LABS: Glucose,Whole Blood 198 mg/dL (75-99)
[2018-10-20 17:53] LABS: Hemoglobin A1C 7.4 % (4.0-6.0)
[2018-10-20] MEDS ORDERED: INSULIN DETEMIR (LEVEMIR) 100 UNIT/ML SYR SQ SCH (21:00)
[2018-10-20] MEDS ORDERED: INSULN ASP PRT/INSULIN ASPART 100 UNIT/ML 10 ML VIAL SQ SCH (21:00)
[2018-10-20] MEDS ORDERED: FAMOTIDINE 20 MG TAB PO SCH (21:00)
[2018-10-20 21:01] LABS: Glucose,Whole Blood 259 mg/dL (75-99)
[2018-10-20] MEDS: LISINOPRIL 5 MG TAB PO SCH (21:27)
[2018-10-20] MEDS: HEPARIN SODIUM,PORCINE 5,000 UNIT/ML 1 ML VIAL SQ SCH (21:27)
[2018-10-21] MEDS: metroNIDAZOLE-NS PMX 500 MG in SALINE 1 100ML.BAG IVPB SCH ×3 (00:41→16:13)
[2018-10-21 02:14] LABS: Glucose,Whole Blood 59 mg/dL (75-99)
[2018-10-21 02:32] LABS: Glucose,Whole Blood 64 mg/dL (75-99)
[2018-10-21 02:52] LABS: Glucose,Whole Blood 84 mg/dL (75-99)
[2018-10-21 07:07] LABS: Glucose,Whole Blood 85 mg/dL (75-99)
[2018-10-21] MEDS: INSULIN ASPART (NovoLOG) 100 UNIT/ML VIAL SQ SCH ×4 (07:16→20:26)
[2018-10-21] MEDS: HEPARIN SODIUM,PORCINE 5,000 UNIT/ML 1 ML VIAL SQ SCH ×2 (07:59→20:25)
[2018-10-21] MEDS: MULTIVITAMINS, THERA 1 EACH TAB PO SCH (07:59)
[2018-10-21] MEDS: ATENOLOL 25 MG TAB PO SCH ×2 (07:59→12:02)
[2018-10-21] MEDS: ISOSORBIDE MONONITRATE ER 30 MG TAB.ER.24H PO SCH (07:59)
[2018-10-21] MEDS: PANTOPRAZOLE 40 MG TABLET PO SCH (07:59)
[2018-10-21] MEDS: DORZOLAMIDE HCL 2% DROPS 10 ML BTL BOTH EYES SCH ×2 (07:59→20:25)
[2018-10-21 08:19] LABS: Calcium 8.3 mg/dL (8.4-10.2); Phosphorus 1.8 mg/dL (2.5-4.5)
[2018-10-21] MEDS ORDERED: INSULN ASP PRT/INSULIN ASPART 100 UNIT/ML 10 ML VIAL SQ SCH (09:00)
--- NOTE | 2018-10-21 10:33 | P.PN ---
Subjective Progress Note Date: 10/21/18 Principal diagnosis: diarrhea Patient is an 88 yo CM with a hx of chronic diarrhea, dementia, chronic payton cath, DM 2, CAD, and HTN who presented to the ED with complaints of severe abdominal pain. Patient had been taking a bowel prep for colonsocopy. IN the ED he underwent an extensive evaluation. His vital signs were within normal limits. Laboratory analysis showed WBC 14.1. Urinalysis was consistent with chronic payton. Acute abdominal series showed colonic obstruction. He was started on IVF and abx and was admitted. There was concern for megacolon and CT was ordered whi ch showed Colitis with partial colonic obstruction. GI and surgery were consulted. Surgery recommends IV ABX and repeat imaging on Wednesday, GI in agreement. Patient on full liquid diet. Patient seen and examined at bedside. NO family present at bedside. Patient denies belly pain, nausea, still with diarrhea. No chest pain or shortness of breath. Objective - Vital Signs Vital signs: Vital Signs Temp 97.6 F 10/21/18 07:34 Pulse 53 L 10/21/18 07:34 Resp 18 10/21/18 01:03 BP 144/55 10/21/18 07:34 Pulse Ox 99 10/21/18 07:34 Intake & Output 10/20/18 10/21/18 10/21/18 18:59 06:59 18:59 Intake Total 100 500 Output Total 400 1800 Balance -300 -1300 Weight 71.7 kg Intake: Intake, IV Titration 100 Amount metroNIDAZOLE-NS PMX 500 100 mg In Saline 1 100ml.bag @ 100 mls/hr IVPB Q8HR [facility] Rx#:[id number] Oral 500 Output: Urine 400 1800 Other: Voiding Method Indwelling Catheter Indwelling Catheter Indwelling Catheter # Bowel Movements 3 1 - Exam General: ill appearing, no distress, appears at stated age Derm: warm, dry Head: atraumatic, normocephalic, symmetric Eyes: EOMI, no lid lag, anicteric sclera Mouth: no lip lesion, mucus membranes dry Cardiovascular: S1S2 reg, no murmur, positive posterior tibial pulse bilateral, Lungs: decreased bs bilateral, no rhonchi, no rales , no accessory muscle use Abdominal: soft, nontender to palpation, no guarding, no appreciable orga nomegaly Ext: no gross muscle atrophy, no edema, no contractures Neuro: CN II-XI grossly intact, no focal neuro deficits Psych: Alert, oriented, appropriate affect, has some difficulty remembering - Labs CBC & Chem 7: 10/21/18 07:40 10/21/18 07:40 Labs: Abnormal Lab Results - Last 24 Hours (Table) 10/20/18 10/20/18 10/20/18 Range/Units 07:46 11:25 16:42 Chloride (98-107) mmol/L POC Glucose (mg/dL) 148 H 198 H (75-99) mg/dL Hemoglobin A1c 7.4 H (4.0-6.0) % Calcium (8.4-10.2) mg/dL Phosphorus (2.5-4.5) mg/dL 10/20/18 10/21/18 10/21/18 Range/Units 20:50 02:02 02:21 Chloride (98-107) mmol/L POC Glucose (mg/dL) 259 H 59 L 64 L (75-99) mg/dL Hemoglobin A1c (4.0-6.0) % Calcium (8.4-10.2) mg/dL Phosphorus (2.5-4.5) mg/dL 10/21/18 Range/Units 07:40 Chloride 110 H (98-107) mmol/L POC Glucose (mg/dL) (75-99) mg/dL Hemoglobin A1c (4.0-6.0) % Calcium 8.3 L (8.4-10.2) mg/dL Phosphorus 1.8 L (2.5-4.5) mg/dL Microbiology - Last 24 Hours (Table) 10/19/18 23:36 Urine Culture - Preliminary Urine,Voided Assessment and Plan Assessment: Colitis with partial colon obstruction - inflammatory vs infectious - Continue Rocephin and flagyl - IVF - GI and surgery recs - Full liquid diet per surgery - Pain control - Antiemetics - c diff negative Chronic diarrhea - GI recs appreciated Anemia - likely dilutation after fluids - Normocytic, follow CBC - check iron studies Hypophosphatemia - replace and recheck in AM HTN - atenolol, lisinopril - hold lasix - follow BP - Controlled GERD - Protonix DM 2 hypoglycemic - d/c levemir, SSI - follow BS CAD - ASA on hold incase procedure needed Chronic payton - no clinic signs of infection - continue outpatient follow-up DVT prophylaxis: Heparin Discussed with: Patient, family, nursing Anticipated discharge: 3-[address]: home A total of 35 minutes was spent on the care of this complex patient more than 50% of the time was spent in counseling and care coordination.
[2018-10-21 11:36] LABS: Glucose,Whole Blood 170 mg/dL (75-99)
[2018-10-21 12:41] LABS: HCT 37.3 % (39.0-53.0); MCH 29.6 pg (25.0-35.0); MCHC 32.2 g/dL (31.0-37.0); MCV 91.8 fL (80.0-100.0); Mean Platelet Volume 6.9; Platelet Count 303 k/uL (150-450); RBC 4.06 m/uL (4.30-5.90); RDW 13.9 % (11.5-15.5); WBC 7.3 k/uL (3.8-10.6)
--- NOTE | 2018-10-21 13:46 | P.PN ---
Subjective Progress Note Date: 10/21/18 CHIEF COMPLAINT: megacolon HISTORY OF PRESENT ILLNESS: Patient examined at the bedside. He denies abdominal pain. Denies nausea or vomiting. Tolerating full liquid diet. Continues to have loose stools. PHYSICAL EXAM: VITAL SIGNS: Reviewed. GENERAL: Well-developed in no acute distress. HEENT: No sclera icterus. Extraocular movements grossly intact. Moist buccal mucosa. Head is atraumatic, normocephalic. ABDOMEN: Soft. Nondistended. Nontender. Positive bowel sounds. NEUROLOGIC: Alert and oriented x 2. Cranial nerves II through XII grossly intact. ASSESSMENT: 1. Abdominal pain 2. Colitis with partial colonic obstruction 3. Chronic diarrhea PLAN: 1. Continue antibiotics 2. Full liquid diet over the weekend 3. Repeat CT with oral contrast on Wednesday 4. If repeat CT does not show improvement or progresses to complete obstruction, surgical intervention recommend. Nurse practitioner note has been reviewed by physician. Signing provider agrees with the documented findings, assessment, and plan of care. Objective - Vital Signs Vital signs: Vital Signs Temp 97.6 F 10/21/18 07:34 Pulse 53 L 10/21/18 07:34 Resp 18 10/21/18 01:03 BP 144/55 10/21/18 07:34 Pulse Ox 99 10/21/18 07:34 Intake & Output 10/20/18 10/21/18 10/21/18 18:59 06:59 18:59 Intake Total 100 500 Output Total 400 1800 Balance -300 -1300 Weight 71.7 kg Intake: Intake, IV Titration 100 Amount metroNIDAZOLE-NS PMX 500 100 mg In Saline 1 100ml.bag @ 100 mls/hr IVPB Q8HR [facility] Rx#:[id number] Oral 500 Output: Urine 400 1800 Other: Voiding Method Indwelling Catheter Indwelling Catheter Indwelling Catheter # Bowel Movements 3 1 3 - Labs CBC & Chem 7: 10/21/18 07:40 10/21/18 07:40 Labs: Abnormal Lab Results - Last 24 Hours (Table) 10/20/18 10/20/18 10/20/18 Range/Units 07:46 16:42 20:50 RBC (4.30-5.90) m/uL Hgb (13.0-17.5) gm/dL Hct (39.0-53.0) % Chloride (98-107) mmol/L POC Glucose (mg/dL) 198 H 259 H (75-99) mg/dL Hemoglobin A1c 7.4 H (4.0-6.0) % Calcium (8.4-10.2) mg/dL Phosphorus (2.5-4.5) mg/dL 10/21/18 10/21/18 10/21/18 Range/Units 02:02 02:21 07:40 RBC 4.06 L (4.30-5.90) m/uL Hgb 12.0 L (13.0-17.5) gm/dL Hct 37.3 L (39.0-53.0) % Chloride (98-107) mmol/L POC Glucose (mg/dL) 59 L 64 L (75-99) mg/dL Hemoglobin A1c (4.0-6.0) % Calcium (8.4-10.2) mg/dL Phosphorus (2.5-4.5) mg/dL 10/21/18 10/21/18 Range/Units 07:40 11:25 RBC (4.30-5.90) m/uL Hgb (13.0-17.5) gm/dL Hct (39.0-53.0) % Chloride 110 H (98-107) mmol/L POC Glucose (mg/dL) 170 H (75-99) mg/dL Hemoglobin A1c (4.0-6.0) % Calcium 8.3 L (8.4-10.2) mg/dL Phosphorus 1.8 L (2.5-4.5) mg/dL Microbiology - Last 24 Hours (Table) 10/19/18 23:36 Urine Culture - Preliminary Urine,Voided
[2018-10-21 17:23] LABS: Glucose,Whole Blood 85 mg/dL (75-99)
[2018-10-21] MEDS: SODIUM PHOSPHATE 10 MMOL in SODIUM CHLORIDE 0.9% 250 ML IVPB SCH ×2 (17:24→19:53)
[2018-10-21 20:08] LABS: Glucose,Whole Blood 290 mg/dL (75-99)
[2018-10-21] MEDS: LISINOPRIL 5 MG TAB PO SCH (20:26)
--- NOTE | 2018-10-21 22:59 | P.PN ---
Subjective Progress Note Date: 10/21/18 Principal diagnosis: Diarrhea, EGD/colonoscopy Patient seen lying in bed denying any abdominal pain. He has been tolerating liquids. Continues to have loose stool. Objective - Vital Signs Vital signs: Vital Signs Temp 98.0 F 10/21/18 14:38 Pulse 83 10/21/18 14:38 Resp 18 10/21/18 01:03 BP 169/83 10/21/18 14:38 Pulse Ox 92 L 10/21/18 14:38 Intake & Output 10/20/18 10/21/18 10/21/18 18:59 06:59 18:59 Intake Total 100 500 Output Total 400 1800 1200 Balance -300 -1300 -1200 Weight 71.7 kg 71.7 kg Intake: Intake, IV Titration 100 Amount metroNIDAZOLE-NS PMX 500 100 mg In Saline 1 100ml.bag @ 100 mls/hr IVPB Q8HR [facility] Rx#:[id number] Oral 500 Output: Urine 400 1800 1200 Other: Voiding Method Indwelling Catheter Indwelling Catheter Indwelling Catheter # Bowel Movements 3 1 3 - Exam On physical examination, patient appears comfortable in no apparent distress. HEAD: Normocephalic, atraumatic. EYES: No scleral icterus. No conjunctival injection. MOUTH: No lesions, tongue midline. NECK: Trachea midline, no gross abnormalities. CHEST: Clear to auscultation with no wheezing or rhonchi appreciated. ABDOMEN: Soft. Bowel sounds are positive. No organomegaly. No guarding or rigidity. EXTREMITIES: No pedal edema. SKIN: No rashes, no jaundice. NEUROLOGIC: Alert and oriented to person. No focal deficits. - Labs CBC & Chem 7: 10/21/18 07:40 10/21/18 07:40 Labs: Abnormal Lab Results - Last 24 Hours (Table) 10/20/18 10/20/18 10/20/18 Range/Units 07:46 16:42 20:50 RBC (4.30-5.90) m/uL Hgb (13.0-17.5) gm/dL Hct (39.0-53.0) % Chloride (98-107) mmol/L POC Glucose (mg/dL) 198 H 259 H (75-99) mg/dL Hemoglobin A1c 7.4 H (4.0-6.0) % Calcium (8.4-10.2) mg/dL Phosphorus (2.5-4.5) mg/dL 10/21/18 10/21/18 10/21/18 Range/Units 02:02 02:21 07:40 RBC 4.06 L (4.30-5.90) m/uL Hgb 12.0 L (13.0-17.5) gm/dL Hct 37.3 L (39.0-53.0) % Chloride (98-107) mmol/L POC Glucose (mg/dL) 59 L 64 L (75-99) mg/dL Hemoglobin A1c (4.0-6.0) % Calcium (8.4-10.2) mg/dL Phosphorus (2.5-4.5) mg/dL 10/21/18 10/21/18 Range/Units 07:40 11:25 RBC (4.30-5.90) m/uL Hgb (13.0-17.5) gm/dL Hct (39.0-53.0) % Chloride 110 H (98-107) mmol/L POC Glucose (mg/dL) 170 H (75-99) mg/dL Hemoglobin A1c (4.0-6.0) % Calcium 8.3 L (8.4-10.2) mg/dL Phosphorus 1.8 L (2.5-4.5) mg/dL Microbiology - Last 24 Hours (Table) 10/19/18 23:36 Urine Culture - Preliminary Urine,Voided Gram Neg Bacilli Assessment and Plan (1) Abnormal CT scan, colon Narrative/Plan: 88-year-old male with multiple medical comorbidities including dementia who was scheduled for outpatient EGD and colonoscopy for evaluation of diarrhea, and presented to Hospital on the day prior to the scheduled endoscopy with complaints of abdominal pain, nausea and vomiting after starting his bowel prep as well as nonbloody diarrhea. The patient had CT imaging on presentation which was significant for findings of diffuse long segment of colorectal wall thickening with extensive inflammatory fat stranding extending into the descending colon. In the area of the descending colon and sigmoid colon there was an area of narrowing with possible colon spasm, neoplasm or benign stricture not excluded. Currently the patient is being seen by the surgical service with plan for repeat computed tomography scan on 1 day and consideration for possible resection. Current Visit: Yes Status: Acute Code(s): R93.3 - ABNORMAL FINDINGS ON DX IMAGING OF PRT DIGESTIVE TRACT SNOMED Code(s): 671972708 (2) Abdominal pain Current Visit: Yes Status: Acute Code(s): R10.9 - UNSPECIFIED ABDOMINAL PAIN SNOMED Code(s): 98025238 (3) Diarrhea Current Visit: Yes Status: Acute Code(s): R19.7 - DIARRHEA, UNSPECIFIED SNOMED Code(s): 70684572 Plan: Supportive care Continue clear liquid diet, advance per surgery recommendations Continue to monitor her symptomatically Plan is for repeat computed tomography scan on Wednesday Can consider possible flexible sigmoidoscopy for direct visualization if the patient is medically stable Thank you for allowing us to participate in the care of this patient we will continue to follow
[2018-10-22] MEDS: metroNIDAZOLE-NS PMX 500 MG in SALINE 1 100ML.BAG IVPB SCH ×2 (01:01→08:41)
[2018-10-22 02:56] LABS: Glucose,Whole Blood 93 mg/dL (75-99)
[2018-10-22 07:04] LABS: Glucose,Whole Blood 109 mg/dL (75-99)
[2018-10-22] MEDS: INSULIN ASPART (NovoLOG) 100 UNIT/ML VIAL SQ SCH ×4 (07:30→21:34)
[2018-10-22 08:00] LABS: HCT 33.8 % (39.0-53.0); MCH 28.7 pg (25.0-35.0); MCHC 32.5 g/dL (31.0-37.0); MCV 88.3 fL (80.0-100.0); Mean Platelet Volume 6.7; Platelet Count 265 k/uL (150-450); RBC 3.83 m/uL (4.30-5.90); RDW 14.3 % (11.5-15.5); WBC 7.2 k/uL (3.8-10.6)
[2018-10-22 08:14] LABS: Magnesium 1.7 mg/dL (1.6-2.3); Phosphorus 2.6 mg/dL (2.5-4.5); Potassium 3.7 mmol/L (3.5-5.1)
[2018-10-22] MEDS ORDERED: POTASSIUM BICARBONATE/CIT AC 20 MEQ TABLET.EFF PO ONE (08:38)
[2018-10-22] MEDS: HEPARIN SODIUM,PORCINE 5,000 UNIT/ML 1 ML VIAL SQ SCH ×2 (08:40→21:36)
[2018-10-22] MEDS: ATENOLOL 25 MG TAB PO SCH (08:40)
[2018-10-22] MEDS: ISOSORBIDE MONONITRATE ER 30 MG TAB.ER.24H PO SCH (08:40)
[2018-10-22] MEDS: PANTOPRAZOLE 40 MG TABLET PO SCH (08:40)
[2018-10-22] MEDS: MULTIVITAMINS, THERA 1 EACH TAB PO SCH (08:40)
[2018-10-22] MEDS: DORZOLAMIDE HCL 2% DROPS 10 ML BTL BOTH EYES SCH ×2 (08:41→22:08)
[2018-10-22 10:19] LABS: Iron Saturation 18.39 (15.00-50.00)
[2018-10-22] MEDS: MAGNESIUM SULFATE-D5W PMX 1 GM in DEXTROSE/WATER 1 100ML.BAG IVPB SCH ×2 (11:38→13:28)
[2018-10-22 11:51] LABS: Glucose,Whole Blood 258 mg/dL (75-99)
--- NOTE | 2018-10-22 13:43 | P.PN ---
Subjective Progress Note Date: 10/22/18 Principal diagnosis: diarrhea Patient is an 88 yo CM with a hx of chronic diarrhea, dementia, chronic payton cath, DM 2, CAD, and HTN who presented to the ED with complaints of severe abdominal pain. Patient had been taking a bowel prep for colonsocopy. IN the ED he underwent an extensive evaluation. His vital signs were within normal limits. Laboratory analysis showed WBC 14.1. Urinalysis was consistent with chronic payton/ asymptomatic bacturia. Acute abdominal series showed colonic obstruction. He was started on IVF and abx and was admitted. There was concern for megacolon and CT was ordered which showed Colitis with partial colonic obstruction. GI and surgery were consulted. Surgery recommends IV ABX and repeat imaging on Wednesday, GI in agreement. Patient on full liquid diet. GI recommends colonoscopy 10/22. Patient seen and examined at bedside. Family updated on plan. Patient with increased agitation overnight. Pulled out IV. No chest pain, SOB, nausea, still with diarrhea. Objective - Vital Signs Vital signs: Vital Signs Temp 98.8 F 10/22/18 06:50 Pulse 61 10/22/18 08:19 Resp 14 10/22/18 06:50 BP 175/68 10/22/18 08:19 Pulse Ox 95 10/22/18 06:50 Intake & Output 10/21/18 10/22/18 10/22/18 18:59 06:59 18:59 Intake Total 320 Output Total 1200 1300 Balance -1200 -1300 320 Weight 71.7 kg 75.5 kg Intake: Oral 320 Output: Urine 1200 1300 Other: Voiding Method Indwelling Catheter Indwelling Catheter Indwelling Catheter # Voids 2 2 # Bowel Movements 3 - Exam General: ill appearing, no distress, appears at stated age Derm: warm, dry Head: atraumatic, normocephalic, symmetric Eyes: EOMI, no lid lag, anicteric sclera Mouth: no lip lesion, mucus membranes dry Cardiovascular: S1S2 reg, no murmur, positive posterior tibial pulse bilateral, Lungs: decreased bs bilateral, no rhonchi, no rales , no accessory muscle use Abdominal: soft, nontender to palpation, no guarding, no appreciable organomegaly Ext: no gross muscle atrophy, no edema, no contractures Neuro: CN II-XI grossly intact, no focal neuro deficits Psych: Alert, oriented to self and situation, flat affect, has some difficulty remembering - Labs CBC & Chem 7: 10/22/18 07:27 10/22/18 07:27 Labs: Abnormal Lab Results - Last 24 Hours (Table) 10/21/18 10/22/18 10/22/18 Range/Units 19:57 06:51 07:27 RBC (4.30-5.90) m/uL Hgb (13.0-17.5) gm/dL Hct (39.0-53.0) % Chloride (98-107) mmol/L BUN (9-20) mg/dL Glucose (74-99) mg/dL POC Glucose (mg/dL) 290 H 109 H (75-99) mg/dL Calcium (8.4-10.2) mg/dL Iron 41 L (65-175) ug/dL TIBC 223 L (228-460) ug/dL 10/22/18 10/22/18 10/22/18 Range/Units 07:27 07:27 11:39 RBC 3.83 L (4.30-5.90) m/uL Hgb 11.0 L (13.0-17.5) gm/dL Hct 33.8 L (39.0-53.0) % Chloride 113 H (98-107) mmol/L BUN 5 L (9-20) mg/dL Glucose 112 H (74-99) mg/dL POC Glucose (mg/dL) 258 H (75-99) mg/dL Calcium 8.0 L (8.4-10.2) mg/dL Iron (65-175) ug/dL TIBC (228-460) ug/dL Microbiology - Last 24 Hours (Table) 10/19/18 23:36 Urine Culture - Final Urine,Voided Escherichia coli Assessment and Plan Assessment: Colitis with partial colon obstruction - inflammatory vs infectious - Continue Rocephin and flagyl - IVF - GI and surgery recs: Plan for colonoscopy in AM - Full liquid diet per surgery - Pain control - Antiemetics - c diff negative Chronic diarrhea - GI recs appreciated Anemia - likely dilutation after fluids - Normocytic, follow CBC - mild iron deficiency Dementia with behavioral disturbance - safe and supportive environment - reassurance HTN - atenolol, lisinopril - hold lasix - follow BP - Controlled GERD - Protonix DM 2 hypoglycemic - SSI - follow BS very labile, continue to monitor, had hypoglycemia with levemir CAD - ASA on hold incase procedure needed Chronic payton - no clinic signs of infection, asymptomatic bacturia. - continue outpatient follow-up Hypophosphatemia, resolved DVT prophylaxis: Heparin Discussed with: Patient, family, nursing Anticipated discharge: 3-[address]: home A total of 35 minutes was spent on the care of this complex patient more than 50% of the time was spent in counseling and care coordination.
[2018-10-22 17:26] LABS: Glucose,Whole Blood 166 mg/dL (75-99)
--- NOTE | 2018-10-22 17:40 | PN ---
PROGRESS NOTE DATE OF SERVICE: 10/23/2018. HISTORY: The patient is an 88-year-old pleasant white male who was admitted to the hospital because of severe abdominal pain while he was doing preparation for colonoscopy that was scheduled on . The patient was seen in the office for chronic diarrhea for 2 months duration. He was having bowel movements anywhere from 10 to 15 per day which were loose and watery in consistency. Stool studies on outpatient basis were negative. Treated empirically with antibiotics with no help. He was subsequently scheduled for a colonoscopy on outpatient basis, but while he was taking the prep, he could not drink any further, became extremely distended and did not have any bowel movements. He subsequently came into the emergency room and had a CT of the abdomen and pelvis done that showed evidence of partial colonic obstruction with thickening of the descending colon and extensive inflammatory fat stranding extending into the descending colon and sigmoid junction with area of narrowing causing partial colonic obstruction. The patient was seen by Surgery who recommended conservative approach at this time. Since being admitted to the hospital patient is feeling much better. He had at least 10 or 15 bowel movements yesterday. Abdominal distention resolved. No fever, chills, or night sweats. No rectal bleeding. PHYSICAL EXAMINATION: He appears comfortable, in no apparent distress. Vital signs stable, blood pressure is 168/44, pulse is 81, temperature 98.4. HEENT examination unremarkable. Conjunctivae pink. Sclerae anicteric. Oral cavity no lesions. NECK: No JVD or lymph node enlargement. CHEST: Clear to auscultation. HEART: Regular rate and rhythm. ABDOMEN: Soft. Bowel sounds are positive. No organomegaly. EXTREMITIES: No pedal edema. SKIN: No rashes. NEUROLOGIC: Alert and oriented x3. No focal deficits. LABS: Done at the time of admission the hospital, WBC 7.2, hemoglobin 11, platelets are normal. Basic metabolic panel is within normal limits. IMPRESSION: Severe lower abdominal pain and chronic diarrhea of 2 months duration. Patient having bowel movements anywhere from 10-15 a day and was scheduled for an outpatient colonoscopy by Dr. Carmen 2 days ago, but during the prep he developed abdominal distention and partial colonic obstruction. He came to the emergency room. CT of the abdomen showed diffuse thickening of the descending colon with significant inflammatory changes with relative narrowing of the sigmoid colon suspicious for acute colitis/diverticulitis/neoplasm. Presently on IV antibiotics on an empiric basis and seems to be gradually improving. RECOMMENDATIONS: Continue with empiric antibiotics. Discussed with Dr. Dunn regarding possibility of colonoscopy during this hospitalization versus conservative approach at the present time. We will await for further recommendations. In the meantime, we will keep him on a clear liquid diet and watch him closely. Thank you for this consultation. ANASTASIIA / EDWARDN: [id number] /
--- NOTE | 2018-10-22 17:56 | P.PN ---
Subjective Progress Note Date: 10/22/18 CHIEF COMPLAINT: Chronic diarrhea HISTORY OF PRESENT ILLNESS: The patient is a 88-year-old male with over four- month history of chronic diarrhea. He has not had a colonoscopy in over 30 years. His is at bedside who provides additional history including unintentional weight loss over 15-20 pounds. Additional studies confirmed large bowel obstruction. He is pending additional workup. He presented acutely with abdominal pain following a GI prep for colonoscopy which then led to his admiss ion. He is having bowel movements following his prep. ROS: No reports of nausea and vomiting. No fevers or chills. No new chest pain. No productive sputum PHYSICAL EXAM: VITAL SIGNS: Reviewed CONSTITUTIONAL: Well developed and in no acute distress. EYES: Conjuctivae without sclera icterus. Extraocular movements grossly intact. HEAD, EARS, NOSE, THROAT: Moist buccal mucosa. Head is atraumatic, normocephalic. Hears conversational speech. No nasal drainage. NECK: Supple. No thyroidomegaly. RESPIRATORY: Non-labored respirations and equal bilateral excursions. CARDIOVASCULAR: Palpable 2+ radial pulses. Regular rate. Regular rhythm. ABDOMEN: No peritonitis. Minimal distention. MUSCULOSKELETAL: No gross deformity of the lower extremities noted. No clubbing. No cyanosis. SKIN: Good skin turgor. Well perfused. NEUROLOGIC: Cranial nerves I through XII grossly intact. No focal or lateralizing signs. PSYCH: Appropriate affect. Alert and oriented to person, place and time. CLINCAL LABS: White blood cell count normal STUDIES: CT of the abdomen and pelvis reviewed independently confirming a obstruction between the descending colon and sigmoid colon. No metastatic lesi on to the liver identified. REPORT: Radiology report also reviewed confirming finding of obstruction of the colon. MISCELLANEOUS: Obtain additional history from his laboratory supervisor regarding upper and lower endoscopy have been planned however delayed with his hospitalization. ASSESSMENT: 1. Large bowel obstruction 2. Iron deficiency anemia 3. Chronic diarrhea PLAN: 1. I recommend continued hospitalization secondary to large bowel obstruction. 2. A slow GI prep advised with intolerance to GoLYTELY. 3. Upon discussion with the patient and at bedside, high likelihood for surgical intervention for large bowel obstruction with identified mass along the colon. Malignancy cannot be excluded. 4. I ordered blood work of CEA and CA 199 for additional workup 5. The above assessment and plan has been discussed with Dr. Ortiz for need of endoscopy and possible surgery Objective - Vital Signs Vital signs: Vital Signs Temp 98.4 F 10/22/18 14:48 Pulse 49 L 10/22/18 14:48 Resp 15 10/22/18 14:48 BP 144/62 10/22/18 14:48 Pulse Ox 97 10/22/18 14:48 Intake & Output 10/21/18 10/22/18 10/22/18 18:59 06:59 18:59 Intake Total 640 Output Total 1200 1300 Balance -1200 -1300 640 Weight 71.7 kg 75.5 kg Intake: Oral 640 Output: Urine 1200 1300 Other: Voiding Method Indwelling Catheter Indwelling Catheter Indwelling Catheter # Voids 2 2 1,015 # Bowel Movements 3 1 - Labs CBC & Chem 7: 10/22/18 07:27 10/22/18 07:27 Labs: Abnormal Lab Results - Last 24 Hours (Table) 10/21/18 10/22/18 10/22/18 Range/Units 19:57 06:51 07:27 RBC (4.30-5.90) m/uL Hgb (13.0-17.5) gm/dL Hct (39.0-53.0) % Chloride (98-107) mmol/L BUN (9-20) mg/dL Glucose (74-99) mg/dL POC Glucose (mg/dL) 290 H 109 H (75-99) mg/dL Calcium (8.4-10.2) mg/dL Iron 41 L (65-175) ug/dL TIBC 223 L (228-460) ug/dL 10/22/18 10/22/18 10/22/18 Range/Units 07:27 07:27 11:39 RBC 3.83 L (4.30-5.90) m/uL Hgb 11.0 L (13.0-17.5) gm/dL Hct 33.8 L (39.0-53.0) % Chloride 113 H (98-107) mmol/L BUN 5 L (9-20) mg/dL Glucose 112 H (74-99) mg/dL POC Glucose (mg/dL) 258 H (75-99) mg/dL Calcium 8.0 L (8.4-10.2) mg/dL Iron (65-175) ug/dL TIBC (228-460) ug/dL 10/22/18 Range/Units 17:14 RBC (4.30-5.90) m/uL Hgb (13.0-17.5) gm/dL Hct (39.0-53.0) % Chloride (98-107) mmol/L BUN (9-20) mg/dL Glucose (74-99) mg/dL POC Glucose (mg/dL) 166 H (75-99) mg/dL Calcium (8.4-10.2) mg/dL Iron (65-175) ug/dL TIBC (228-460) ug/dL Microbiology - Last 24 Hours (Table) 10/19/18 23:36 Urine Culture - Final Urine,Voided Escherichia coli Assessment and Plan (1) Large bowel stricture Current Visit: Yes Status: Acute Code(s): K56.699 - OTHER INTESTNL OBST UNSP TO PARTIAL VERSUS COMPLETE OBST SNOMED Code(s): 95161668 (2) Iron deficiency anemia Current Visit: Yes Status: Acute Code(s): D50.9 - IRON DEFICIENCY ANEMIA, UNSPECIFIED SNOMED Code(s): 66776386 (3) Abdominal pain Current Visit: Yes Status: Acute Code(s): R10.9 - UNSPECIFIED ABDOMINAL PAIN SNOMED Code(s): 46505636 (4) Abnormal CT scan, colon Current Visit: Yes Status: Acute Code(s): R93.3 - ABNORMAL FINDINGS ON DX IMAGING OF PRT DIGESTIVE TRACT SNOMED Code(s): 630804119 (5) Diarrhea Current Visit: Yes Status: Acute Code(s): R19.7 - DIARRHEA, UNSPECIFIED SNOMED Code(s): 60203926
[2018-10-22] MEDS ORDERED: MAGNESIUM CITRATE 296 ML BOTTLE PO ONE (18:00)
[2018-10-22] MEDS: metroNIDAZOLE 500 MG TAB PO SCH ×2 (18:15→22:51)
[2018-10-22 20:31] LABS: Glucose,Whole Blood 168 mg/dL (75-99)
[2018-10-22] MEDS: LISINOPRIL 5 MG TAB PO SCH (21:39)
[2018-10-23 02:59] LABS: Glucose,Whole Blood 147 mg/dL (75-99)
[2018-10-23] MEDS ORDERED: NA PHOS,M-B/NA PHOS,DI-BA 133 ML ENEMA RECTAL ONE ×2 (06:00→06:30)
[2018-10-23] MEDS ORDERED: PROPOFOL 10 MG/ML 20 ML VIAL IV ONE (06:58)
[2018-10-23] MEDS ORDERED: GLYCOPYRROLATE 0.2 MG/ML 2 ML VIAL ONE (06:58)
[2018-10-23] MEDS ORDERED: IV FLUID CONTINUATION 500 ML IV ONE (06:58)
--- NOTE | 2018-10-23 07:29 | P.PCN ---
Date of Procedure: 10/23/18 Procedure(s) Performed: BRIEF HISTORY: Patient is a 88-year-old pleasant, white male, admitted to the hospital with abdominal pain and partial colonic obstruction. The patient was having chronic diarrhea for the last 3 months duration with weight loss of 10 pounds. As a part of evaluation was scheduled for an outpatient EGD/colonoscopy 3 years ago but as he was taking the prep he developed severe abdominal pain and abdominal distention and hence came to the emergency room area and CAT scan of the abdomen done showed evidence of partial colonic obstruction with significant narrowing in the sigmoid colon and thickening of the descending colon. He was admitted to the hospital and was started on antibiotics for possible colitis. He is scheduled for an colonoscopy today to evaluate further. PROCEDURE PERFORMED: Colonoscopy with biopsy and snare polypectomy. PREOPERATIVE DIAGNOSIS: Chronic diarrhea/partial colonic obstruction. IV sedation per Anesthesia. PROCEDURE: After informed consent was obtained, the patient, was brought into the endoscopy unit. IV sedation was administered by Anesthesia under continuous monitoring. Digital rectal examination was normal. Digital rectal examination revealed a hard distal rectal mass. Initially the Olympus CF-160 flexible video colonoscope was then inserted in the rectum but the scope couldn't be advanced. Hence the scope was removed and a pediatric colonoscopy was then introduced into the rectum, gradually advanced into the cecum without any difficulty. Careful examination was performed as the scope was gradually being withdrawn. Ileocecal valve and the appendiceal orifice were visualized and appeared normal. Prep was excellent. Mucosa of the cecum, ascending colon, transverse colon, descending colon appeared normal. In the sigmoid colon there was a 1 cm broad-based polyp removed by snare polypectomy. The distal sigmoid colon appeared normal. In the distal rectum there was a circumferential ulcerated mass involving the dentate line identified with some luminal narrowing at the anus. Multiple biopsies were done from the distal rectal ulcerated mass. The patient tolerated the procedure well. IMPRESSION: Circumferential ulcerated distal rectal mass with some luminal narrowing status post multiple biopsies 1 cm sigmoid colon polyp status post polypectomy. RECOMMENDATIONS: Findings of this examination were discussed with the patient as well as his family. He was advised to follow with the biopsy result. He was given him on a clear liquid diet. Obtain oncology consultation.
[2018-10-23 08:18] LABS: Glucose,Whole Blood 157 mg/dL (75-99)
[2018-10-23] MEDS: INSULIN ASPART (NovoLOG) 100 UNIT/ML VIAL SQ SCH ×4 (09:03→20:51)
[2018-10-23] MEDS: ATENOLOL 25 MG TAB PO SCH (09:04)
[2018-10-23] MEDS: PANTOPRAZOLE 40 MG TABLET PO SCH (09:04)
[2018-10-23] MEDS: metroNIDAZOLE 500 MG TAB PO SCH ×3 (09:04→23:32)
[2018-10-23] MEDS: MULTIVITAMINS, THERA 1 EACH TAB PO SCH (09:04)
[2018-10-23] MEDS: DORZOLAMIDE HCL 2% DROPS 10 ML BTL BOTH EYES SCH ×2 (09:05→20:50)
[2018-10-23] MEDS: ISOSORBIDE MONONITRATE ER 30 MG TAB.ER.24H PO SCH (09:05)
[2018-10-23] MEDS: HEPARIN SODIUM,PORCINE 5,000 UNIT/ML 1 ML VIAL SQ SCH ×2 (09:05→20:50)
--- NOTE | 2018-10-23 11:53 | P.CONS ---
History of Present Illness - Reason for Consult Consult date: 10/23/18 Rectal mass Requesting physician: Caden Chong - Chief Complaint Abdominal pain due to drinking colonoscopy prep - History of Present Illness Mr. Beard is a very pleasant 88-year-old gentleman with a history of multiple comorbidities as listed under past medical history who is here for abdominal pain associated with colonoscopy prep. He was evaluated by GI for increasing diarrhea and weight loss for the past 4 months. He describes the diarrhea as increased urgency, small amount of soft stool multiple times a day. No bowel or bladder incontinence. He has been eating okay however has lost about 20 pounds over the past 4 months. Also with increasing weakness. Was able to mow the lawn prior to this however now PS is ECOG 1-2. Plan was to do an outpatient colonoscopy and he was drinking the prep however had severe abdominal pain due to this and ended up in the ER for this. Abdominal x-ray revealed concern for megacolon. CT of the abdomen and pelvis with contrast showed a long colorectal strip of wall thickening with acute colitis or infection, cannot rule out malignancy, with partial obstruction. He underwent colonoscopy earlier today which revealed a circumferential ulcerated distal rectal mass with some luminal narrowing which was biopsied as well as a sigmoid polyp that was removed. He tolerated the procedure well. He was seen with his and daughter at bedside. No smoking, alcohol, or drug use including no CBD or marijuana use. Family history consists of an unknown type of cancer in his brother who was in the during World War II, during his 70s otherwise no known history of malignancy in his family. Lives at home with his 92-year-old who helps take care of him. No steps in the home other than a few steps to get in and out of the house. Review of Systems All systems: negative Constitutional: Reports as per HPI Past Medical History Past Medical History: Coronary Artery Disease (CAD), Dementia, Diabetes Mellitus, GERD/Reflux, Hypertension Additional Past Medical History / Comment(s): frequent diarrhea with bleeding at the beginning x4 mos-buttocks and coccyx raw,pedal edema,incontinent urine,payton catheter present-following with Dr Fan-very dark urine with foul odor History of Any Multi-Drug Resistant Organisms: None Reported Past Surgical History: Heart Catheterization With Stent Additional Past Surgical History / Comment(s): heart stents x4 Past Anesthesia/Blood Transfusion Reactions: No Reported Reaction Additional Past Anesthesia/Blood Transfusion Reaction / Comm: never has had general anesthesia Date of Last Stent Placement:: 30yrs ago Past Psychological History: No Psychological Hx Reported Smoking Status: Former smoker Past Alcohol Use History: None Reported Additional Past Alcohol Use History / Comment(s): quit smoking cigars 10-15 yrs ago,smoked occas Past Drug Use History: None Reported - Past Family History Mother Family Medical History: No Reported History Medications and Allergies Home Medications Medication Instructions Recorded Confirmed Type Aspirin 325 mg PO DAILY 10/19/18 10/19/18 History Atenolol [Tenormin] 25 mg PO DAILY 10/19/18 10/19/18 History Benazepril [Lotensin] 5 mg PO HS 10/19/18 10/19/18 History Calcium Carbonate [Calcium] 600 mg PO DAILY 10/19/18 10/19/18 History Dorzolamide HCl/Pf [Dorzolamide 2% 1 drop BOTH EYES BID 10/19/18 10/19/18 History Eye Drop] Furosemide [Lasix] 20 mg PO DAILY 10/19/18 10/19/18 History Insulin Aspart Protam & Aspart 10 unit SQ HS 10/19/18 10/19/18 History [NovoLOG MIX 70-30 Flexpen] Insulin Aspart Protam & Aspart 26 unit SQ QAM 10/19/18 10/19/18 History [Novolog Mix 70-30 Flexpen Syrn] Isosorbide Mononitrate [Isosorbide 30 mg PO DAILY 10/19/18 10/19/18 History Mononitrate ER] Multivitamins, Thera [Multivitamin 1 tab PO DAILY 10/19/18 10/19/18 History (formulary)] Nitroglycerin Sl Tabs [Nitrostat] 0.4 mg SUBLINGUAL Q5M PRN 10/19/18 10/19/18 History Ranitidine HCl 150 mg PO HS 10/19/18 10/19/18 History Allergies Allergy/AdvReac Type Severity Reaction Status Date / Time No Known Allergies Allergy Verified 10/19/18 23:27 Physical Exam Vitals: Vital Signs Temp Pulse Resp BP Pulse Ox 10/23/18 03:23 14 10/23/18 02:07 98.6 F 46 L 16 157/57 96 06/02/19 00:44 14 10/22/18 20:29 98.6 F 48 L 16 173/67 96 10/22/18 19:47 16 10/22/18 19:45 14 10/22/18 17:11 98.0 F 53 L 16 165/67 96 10/22/18 14:48 98.4 F 49 L 15 144/62 97 Intake and Output 10/22/18 10/23/18 10/23/18 22:59 06:59 14:59 Intake Total 240 300 Output Total 1200 1600 Balance -960 -1600 300 Intake: IV 300 Oral 240 Output: Urine 1200 1600 Uretheral (Payton) 1200 600 Other: Voiding Method Indwelling Catheter Indwelling Catheter Indwelling Catheter # Bowel Movements 4 5 Weight 76 kg Gen.: No acute distress. HEENT: Mucosa moist, no icterus. Neck: Supple. Lymphatics: No cervical lymphadenopathy. Lungs: Clear to auscultation bilaterally. Heart: Regular rate. Abdomen: Soft, nontender. Extremities: No lower extremity edema. MSK: Moving all 4 extremities spontaneously. Neuro: Alert and oriented 3. Skin: No jaundice. Results CBC & Chem 7: 10/22/18 07:27 10/22/18 07:27 Labs: Abnormal Lab Results - Last 24 Hours (Table) 10/22/18 10/22/18 10/22/18 Range/Units 07:27 11:39 17:14 POC Glucose (mg/dL) 258 H 166 H (75-99) mg/dL Iron 41 L (65-175) ug/dL TIBC 223 L (228-460) ug/dL 10/22/18 10/23/18 10/23/18 Range/Units 20:20 02:49 07:54 POC Glucose (mg/dL) 168 H 147 H 157 H (75-99) mg/dL Iron (65-175) ug/dL TIBC (228-460) ug/dL Microbiology - Last 24 Hours (Table) 10/19/18 23:36 Urine Culture - Final Urine,Voided Escherichia coli Abdominal x-ray: report reviewed CT scan - abdomen: report reviewed Assessment and Plan Assessment: 1. Distal rectal mass 2. Near obstructing mass 3. Normocytic anemia Plan: Mr. Beard is a very pleasant 88-year-old gentleman who is here for abdominal pain associated with colonoscopy prep, found to have a distal circumferential rectal mass concerning for malignancy. 1. Distal rectal mass - this is highly concerning for a rectal cancer. He is 88 with an ECOG of 1-2. CT of the abdomen and pelvis does not reveal any evidence of metastatic disease. Biopsy was done of the mass earlier today, pathology pending. No objections to discharge from oncology standpoint. We'll plan on follow-up in one week in our clinic. We'll also plan on arranging for a pelvic MRI as well as a CT of the chest to complete staging workup, all of which can be done as outpatient. 2. Normocytic anemia - his hemoglobin on presentation was normal in the 13th, however decreased 11's with hydration. Likely this is dilutional. He did have iron studies checked that show low normal iron stores as well as anemia of chronic disease. We'll monitor for now. Discussed above in detail with the patient and his family and they are agreeable to the plan. All of their questions were answered.
[2018-10-23 12:01] LABS: Glucose,Whole Blood 132 mg/dL (75-99)
--- NOTE | 2018-10-23 13:57 | P.PN ---
Subjective Progress Note Date: 10/23/18 CHIEF COMPLAINT: Chronic diarrhea HISTORY OF PRESENT ILLNESS: The patient is a 88-year-old male with over four- month history of chronic diarrhea. He was admitted for generalized abdominal pain following a colonic prep. Yesterday I had a long discussion with the family about findings on computed tomography scan highlysuggestive of potential malignancy with mechanical obstruction. This morning, I was medially notified by peanut separator Dr. Ortiz that findings confirm obstructed ulcerated re ctal mass. The patient's and daughter at bedside. "I feel very well.". In fact he tolerated meal for breakfast. He had been seen by oncology as well. ROS: No reports of nausea and vomiting. No fevers or chills. No new chest pain. No productive sputum PHYSICAL EXAM: VITAL SIGNS: Reviewed CONSTITUTIONAL: Well developed and in no acute distress. EYES: Conjuctivae without sclera icterus. Extraocular movements grossly intact. HEAD, EARS, NOSE, THROAT: Moist buccal mucosa. Head is atraumatic, normocephalic. Hears conversational speech. No nasal drainage. NECK: Supple. No thyroidomegaly. RESPIRATORY: Non-labored respirations and equal bilateral excursions. CARDIOVASCULAR: Palpable 2+ radial pulses. Regular rate. Regular rhythm. ABDOMEN: No peritonitis. Soft. Nondistended. MUSCULOSKELETAL: No gross deformity of the lower extremities noted. No clubbing. No cyanosis. SKIN: Good skin turgor. Well perfused. NEUROLOGIC: Cranial nerves I through XII grossly intact. No focal or lateralizing signs. PSYCH: Appropriate affect. Alert and oriented to person, place and time. CLINCAL LABS: White blood cell count normal REPORT: Colonoscopy report demonstrates ascending transverse colon descending colon unremarkable with removal of 1-cm sigmoid polyp including biopsy of rectal ulcerative tumor. ASSESSMENT: 1. Large bowel obstruction 2. Iron deficiency anemia 3. Chronic diarrhea 4. New rectal malignancy PLAN: 1. Per review of oncology report, chemotherapy described pending results of pathology. 2. No immediate surgical intervention at this time as course of surgery to be dictated with oncology including Dr. Salas 3. Continue with liquid diet at this time with history of large bowel obstruction secondary to rectal mass 4. He has new diagnosis of rectal malignancy with tumor markers pending Objective - Vital Signs Vital signs: Vital Signs Temp 98.2 F 10/23/18 07:44 Pulse 54 L 10/23/18 09:39 Resp 15 10/23/18 07:44 BP 166/66 10/23/18 09:39 Pulse Ox 95 10/23/18 07:44 Intake & Output 10/22/18 10/23/18 10/23/18 18:59 06:59 18:59 Intake Total 880 300 Output Total 2800 1020 Balance 880 -2800 -720 Weight 76 kg Intake: IV 300 Oral 880 Output: Urine 2800 1020 Uretheral (Berg) 1800 Other: Voiding Method Indwelling Catheter Indwelling Catheter Indwelling Catheter # Voids 1,015 # Bowel Movements 1 5 - Labs CBC & Chem 7: 10/22/18 07:27 10/22/18 07:27 Labs: Abnormal Lab Results - Last 24 Hours (Table) 10/22/18 10/22/18 10/23/18 Range/Units 17:14 20:20 02:49 POC Glucose (mg/dL) 166 H 168 H 147 H (75-99) mg/dL Phosphorus (2.5-4.5) mg/dL 10/23/18 10/23/18 10/23/18 Range/Units 07:54 08:22 11:49 POC Glucose (mg/dL) 157 H 132 H (75-99) mg/dL Phosphorus 2.3 L (2.5-4.5) mg/dL Assessment and Plan (1) Large bowel stricture Current Visit: Yes Status: Acute Code(s): K56.699 - OTHER INTESTNL OBST UNSP TO PARTIAL VERSUS COMPLETE OBST SNOMED Code(s): 92697801 (2) Iron deficiency anemia Current Visit: Yes Status: Acute Code(s): D50.9 - IRON DEFICIENCY ANEMIA, UNSPECIFIED SNOMED Code(s): 07379931 (3) Abdominal pain Current Visit: Yes Status: Acute Code(s): R10.9 - UNSPECIFIED ABDOMINAL PAIN SNOMED Code(s): 16328901 (4) Abnormal CT scan, colon Current Visit: Yes Status: Acute Code(s): R93.3 - ABNORMAL FINDINGS ON DX IMAGING OF PRT DIGESTIVE TRACT SNOMED Code(s): 972458003 (5) Diarrhea Current Visit: Yes Status: Acute Code(s): R19.7 - DIARRHEA, UNSPECIFIED SNOMED Code(s): 19277974
--- NOTE | 2018-10-23 16:57 | P.PN ---
Subjective Progress Note Date: 10/23/18 (delayed charting seen at 1030) Principal diagnosis: diarrhea Patient is an 88 yo CM with a hx of chronic diarrhea, dementia, chronic payton cath, DM 2, CAD, and HTN who presented to the ED with complaints of severe abdominal pain. Patient had been taking a bowel prep for colonsocopy. IN the ED he underwent an extensive evaluation. His vital signs were within normal limits. Laboratory analysis showed WBC 14.1. Urinalysis was consistent with chronic payton/ asymptomatic bacturia. Acute abdominal series showed colonic obstruction. He was started on IVF and abx and was admitted. There was concern for megacolon and CT was ordered which showed Colitis with partial colonic obstruction. GI and surgery were consulted. Surgery recommends IV ABX and repeat imaging on Wednesday, GI in agreement. Patient on full liquid diet. Patient completed colonoscopy on the morning of 10/23. This showed a distal rectal mass. They were able to pass the pediatric scope passed mass. No indication to repeat computed tomography scan at this point in time. Patient has been seen by oncology they will follow in the clinic in 1 week. He'll need an outpatient pelvic MRI as well as a CT of the chest. Monitor patient overnight with his recent sedation. Ensure he is able to tolerate his diet, likely will need full liquid diet on discharge. Maybe soft. Likely home on 10/24. Patient seen and examined at bedside. Family updated on plan. Patient without complaints, no chest pain, SOB, nausea, or vomiting. No BM since scope. Objective - Vital Signs Vital signs: Vital Signs Temp 98.6 F 10/23/18 14:57 Pulse 50 L 10/23/18 14:57 Resp 15 10/23/18 14:57 BP 163/68 10/23/18 14:57 Pulse Ox 96 10/23/18 14:57 Intake & Output 10/22/18 10/23/18 10/23/18 18:59 06:59 18:59 Intake Total 880 300 Output Total 2800 1020 Balance 880 -2800 -720 Weight 76 kg Intake: IV 300 Oral 880 Output: Urine 2800 1020 Uretheral (Payton) 1800 Other: Voiding Method Indwelling Catheter Indwelling Catheter Indwelling Catheter # Voids 1,015 # Bowel Movements 1 5 - Exam General: non toxic, no distress, appears at stated age Derm: warm, dry Head: atraumatic, normocephalic, symmetric Eyes: EOMI, no lid lag, anicteric sclera Mouth: no lip lesion, mucus membranes dry Cardiovascular: S1S2 reg, no murmur, positive posterior tibial pulse bilateral, Lungs: decreased bs bilateral, no rhonchi, no rales , no accessory muscle use Abdominal: soft, nontender to palpation, no guarding, no appreciable organomegaly Ext: no gross muscle atrophy, no edema, no contractures Neuro: CN II-XI grossly intact, no focal neuro deficits Psych: Alert, oriented to self and situation, flat affect, has some difficulty remembering - Labs CBC & Chem 7: 10/22/18 07:27 10/22/18 07:27 Labs: Abnormal Lab Results - Last 24 Hours (Table) 10/22/18 10/22/18 10/23/18 Range/Units 17:14 20:20 02:49 POC Glucose (mg/dL) 166 H 168 H 147 H (75-99) mg/dL Phosphorus (2.5-4.5) mg/dL 10/23/18 10/23/18 10/23/18 Range/Units 07:54 08:22 11:49 POC Glucose (mg/dL) 157 H 132 H (75-99) mg/dL Phosphorus 2.3 L (2.5-4.5) mg/dL Assessment and Plan Assessment: Partial colonic obstruction due to low rectal mass - pathology pending - D/W oncology- outpatient pelvic MRI and CT chest - Discontinue Rocephin and flagyl - IVF - GI recs appreciated - Full liquid diet, will need modified diet - Pain control - Antiemetics - c diff negative Chronic diarrhea - likely due rectal mass - GI recs appreciated Anemia - Normocytic, follow CBC - mild iron deficiency with anemia of chronic disease Dementia with behavioral disturbance - safe and supportive environment - reassurance HTN - atenolol, lisinopril - resume lasix on discharge - follow BP - Controlled GERD - Protonix DM 2 hypoglycemic - SSI - follow BS very labile, continue to monitor, had hypoglycemia with levemir - on 70/30 at home, close blood sugar monitoring at home -A1C 7.4 CAD - ASA on hold incase procedure needed Chronic payton - no clinic signs of infection, asymptomatic bacturia. - continue outpatient follow-up Hypophosphatemia, resolved DVT prophylaxis: Heparin Discussed with: Patient, family, nursing Anticipated discharge: in AM Anticipated discharge place: home A total of 35 minutes was spent on the care of this complex patient more than 50% of the time was spent in counseling and care coordination.
[2018-10-23 17:05] LABS: Glucose,Whole Blood 339 mg/dL (75-99)
[2018-10-23] MEDS ORDERED: hydrALAZINE HCL 25 MG TAB PO PRN (20:04)
[2018-10-23 20:41] LABS: Glucose,Whole Blood 195 mg/dL (75-99)
[2018-10-23] MEDS: LISINOPRIL 5 MG TAB PO SCH (20:50)
[2018-10-24 02:18] LABS: Glucose,Whole Blood 132 mg/dL (75-99)
[2018-10-24 07:12] LABS: Glucose,Whole Blood 167 mg/dL (75-99)
[2018-10-24 08:13] LABS: Calcium 8.3 mg/dL (8.4-10.2); Magnesium 1.8 mg/dL (1.6-2.3)
[2018-10-24] MEDS: ATENOLOL 25 MG TAB PO SCH (08:25)
[2018-10-24] MEDS: ISOSORBIDE MONONITRATE ER 30 MG TAB.ER.24H PO SCH (08:25)
[2018-10-24] MEDS: INSULIN ASPART (NovoLOG) 100 UNIT/ML VIAL SQ SCH ×2 (08:25→12:18)
[2018-10-24] MEDS: DORZOLAMIDE HCL 2% DROPS 10 ML BTL BOTH EYES SCH (08:25)
[2018-10-24] MEDS: metroNIDAZOLE 500 MG TAB PO SCH (08:26)
[2018-10-24] MEDS: HEPARIN SODIUM,PORCINE 5,000 UNIT/ML 1 ML VIAL SQ SCH (08:26)
[2018-10-24] MEDS: PANTOPRAZOLE 40 MG TABLET PO SCH (08:26)
[2018-10-24 10:32] LABS: Cancer Antigen 19-9 44.3 U/mL (0.0-34.9)
[2018-10-24] MEDS: MULTIVITAMINS, THERA 1 EACH TAB PO SCH (10:49)
[2018-10-24 11:09] VITALS: BMI 26.2
[2018-10-24 11:53] LABS: Glucose,Whole Blood 315 mg/dL (75-99)
--- NOTE | 2018-10-24 12:19 | P.PN ---
Subjective Progress Note Date: 10/24/18 CHIEF COMPLAINT: megacolon HISTORY OF PRESENT ILLNESS: Patient examined at the bedside. He denies abdominal pain. Denies nausea or vomiting. Tolerating full liquid diet. PHYSICAL EXAM: VITAL SIGNS: Reviewed. GENERAL: Well-developed in no acute distress. HEENT: No sclera icterus. Extraocular movements grossly intact. Moist buccal mucosa. Head is atraumatic, normocephalic. ABDOMEN: Soft. Nondistended. Nontender. Positive bowel sounds. NEUROLOGIC: Alert and oriented x 2. Cranial nerves II through XII grossly intact. ASSESSMENT: 1. Abdominal pain 2. Partial colonic obstruction secondary to rectal mass 3. Chronic diarrhea PLAN: Continue full liquid diet. May advance to soft diet if patient is able to tolerate Patient may be discharged from a surgical standpoint Follow up with Dr. Salas outpatient in 1 week Nurse practitioner note has been reviewed by physician. Signing provider agrees with the documented findings, assessment, and plan of care. Objective - Vital Signs Vital signs: Vital Signs Temp 98.1 F 10/24/18 07:00 Pulse 51 L 10/24/18 07:00 Resp 16 10/24/18 07:00 BP 174/66 10/24/18 07:00 Pulse Ox 95 10/24/18 07:00 Intake & Output 10/23/18 10/24/18 10/24/18 18:59 06:59 18:59 Intake Total 620 50 Output Total 1020 790 Balance -400 -790 50 Weight 76 kg Intake: IV 300 Intake, IV Titration 50 Amount cefTRIAXone 1 gm In 50 Sodium Chloride 0.9% 50 ml @ 100 mls/hr IVPB Q24H [facility] Rx#:[id number] Oral 320 Output: Urine 1020 790 Uretheral (Berg) 300 Other: Voiding Method Indwelling Catheter Indwelling Catheter Indwelling Catheter - Labs CBC & Chem 7: 10/22/18 07:27 10/24/18 07:24 Labs: Abnormal Lab Results - Last 24 Hours (Table) 10/23/18 10/23/18 10/23/18 Range/Units 08:22 16:53 20:30 Chloride (98-107) mmol/L BUN (9-20) mg/dL Glucose (74-99) mg/dL POC Glucose (mg/dL) 339 H 195 H (75-99) mg/dL Calcium (8.4-10.2) mg/dL Carcinoembryonic Ag 7.8 H (0.0-4.9) ng/mL CA 19-9 Antigen 44.3 H (0.0-34.9) U/mL 10/24/18 10/24/18 10/24/18 Range/Units 02:07 06:55 07:24 Chloride 109 H (98-107) mmol/L BUN 7 L (9-20) mg/dL Glucose 164 H (74-99) mg/dL POC Glucose (mg/dL) 132 H 167 H (75-99) mg/dL Calcium 8.3 L (8.4-10.2) mg/dL Carcinoembryonic Ag (0.0-4.9) ng/mL CA 19-9 Antigen (0.0-34.9) U/mL 10/24/18 Range/Units 11:38 Chloride (98-107) mmol/L BUN (9-20) mg/dL Glucose (74-99) mg/dL POC Glucose (mg/dL) 315 H (75-99) mg/dL Calcium (8.4-10.2) mg/dL Carcinoembryonic Ag (0.0-4.9) ng/mL CA 19-9 Antigen (0.0-34.9) U/mL
--- NOTE | 2018-10-24 15:00 | P.DS ---
Providers Date of admission: 10/20/18 01:47 Expected date of discharge: 10/24/18 Attending physician: Caden Chong MD Consults: 10/20/18 01:47 Consult Physician Routine Consulting Provider: Lion Carmen Consult Reason/Comments: known Do you want consulting provider notified?: Yes 10/20/18 06:07 Consult Physician Routine Consulting Provider: Chester Salas Consult Reason/Comments: megacolon Do you want consulting provider notified?: Yes 10/23/18 07:55 Consult Physician Routine Consulting Provider: Lou Junior Consult Reason/Comments: Rectal Mass Do you want consulting provider notified?: Already Contacted [facility] care physician: [facility] Course: Discharge diagnoses Partial colonic obstruction due to rectal mass Chronic diarrhea 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 Patient had been taking a bowel prep for colonsocopy. IN the ED he underwent an extensive evaluation. His vital signs were within normal limits. Laboratory analysis showed WBC 14.1. Urinalysis was consistent with chronic payton/ asymptomatic bacturia. Acute abdominal series showed colonic obstruction. He was started on IVF and abx and was admitted. There was concern for megacolon and CT was ordered which showed Colitis with partial colonic obstruction. GI and surgery were consulted. Surgery recommends IV ABX and repeat imaging on Wednesday, GI in agreement. Patient on full liquid diet. Patient completed colonoscopy on the morning of 10/23. This showed a distal rectal mass. They were able to pass the pediatric scope passed mass. No indication to repeat computed tomography scan at this point in time. Patient has been seen by oncology they will follow in the clinic in 1 week. He'll need an outpatient pelvic MRI as well as a CT of the chest. Urine culture was positive for E. coli, patient was placed on Rocephin. It is possible the patient had colonization from E. coli for due to his indwelling catheter. Patient was advanced from full liquid diet tolerating a soft GI diet at time of discharge he was subsequently sent home in stable condition with plans for follow-up with general surgery Dr. Salas in 1 week. This discharge process took approximately 35 minutes. Focused exam ABDOMEN: Soft. Nondistended. Nontender. Positive bowel Sounds. Patient Condition at Discharge: Good Plan - Discharge Summary New Discharge Prescriptions: Continue Ranitidine HCl 150 mg PO HS Nitroglycerin Sl Tabs [Nitrostat] 0.4 mg SUBLINGUAL Q5M PRN PRN Reason: Chest Pain Multivitamins, Thera [Multivitamin (formulary)] 1 tab PO DAILY Isosorbide Mononitrate [Isosorbide Mononitrate ER] 30 mg PO DAILY Dorzolamide HCl/Pf [Dorzolamide 2% Eye Drop] 1 drop BOTH EYES BID Furosemide [Lasix] 20 mg PO DAILY Calcium Carbonate [Calcium] 600 mg PO DAILY Benazepril [Lotensin] 5 mg PO HS Atenolol [Tenormin] 25 mg PO DAILY Aspirin 325 mg PO DAILY Insulin Aspart Protam & Aspart [NovoLOG MIX 70-30 Flexpen] 26 unit SQ QAM Insulin Aspart Protam & Aspart [NovoLOG MIX 70-30 Flexpen] 10 unit SQ HS Discharge Medication List Aspirin 325 mg PO DAILY 10/19/18 [History] Atenolol [Tenormin] 25 mg PO DAILY 10/19/18 [History] Benazepril [Lotensin] 5 mg PO HS 10/19/18 [History] Calcium Carbonate [Calcium] 600 mg PO DAILY 10/19/18 [History] Dorzolamide HCl/Pf [Dorzolamide 2% Eye Drop] 1 drop BOTH EYES BID 10/19/18 [History] Furosemide [Lasix] 20 mg PO DAILY 10/19/18 [History] Insulin Aspart Protam & Aspart [NovoLOG MIX 70-30 Flexpen] 10 unit SQ HS 10/19/18 [History] Insulin Aspart Protam & Aspart [NovoLOG MIX 70-30 Flexpen] 26 unit SQ QAM 10/19/18 [History] Isosorbide Mononitrate [Isosorbide Mononitrate ER] 30 mg PO DAILY 10/19/18 [History] Multivitamins, Thera [Multivitamin (formulary)] 1 tab PO DAILY 10/19/18 [History] Nitroglycerin Sl Tabs [Nitrostat] 0.4 mg SUBLINGUAL Q5M PRN 10/19/18 [History] Ranitidine HCl 150 mg PO HS 10/19/18 [History] Follow up Appointment(s)/Referral(s): Sang Campbell MD [Primary Care Provider] - 11/04/18 11:30 am Lou Junior MD [Medical Doctor] - 1 Week [facility] Visiting Nurse, [NON-STAFF] - Chester Salas MD [STAFF PHYSICIAN] - 11/01/18 3:10 pm Patient Instructions/Handouts: Soft Diet (DC), Payton Catheter Placement and Care (DC), Acute Diarrhea (ED), Urinary Leg Bag (GEN), Full Liquid Diet (DC) Activity/Diet/Wound Care/Special Instructions: Continue to full liquid may advance to soft food it tolerated. Discharge Disposition: HOME WITH HOME HEALTH SERVICES
[2018-10-24 15:11] VITALS: BP 158/73; PULSE 53; RESP 15; TEMP 98.5
--- NOTE | 2018-11-01 11:28 | CDI ---
Documentation Clarification Form Date: 11-01-18 From: Rachael Quintanilla Phone: If you have question, contact Pita Kaufman at [phone] M-F 8:30 am to 6pm Admit Date: 10/20/2018 1:47:00 AM Patient Name: Fredo Beard Visit Number: [id number] Discharge Date: 10/24/2018 5:12:00 PM ATTENTION: The Clinical Documentation Specialists (CDI) and [facility] Coding Staff appreciate your assistance in clarifying documentation. Please respond to the clarification below the line at the bottom and electronically sign. The CDI & [facility] Coding staff will review the response and follow-up if needed. Please note: Queries are made part of the Legal Health Record. If you have any questions, please contact the author of this message via ITS. Dr. Maulik Posada Mr. Beard was admitted for partial colonic obstruction and underwent a colonoscopy with biopsy. Pathology report is now available with results. The final diagnosis of the pathology report states: Colorectal adenocarcinoma of the rectum Documentation states: Rectal mass In your professional opinion, do you agree with the pathology report specifying the rectal mass as adenocarcinoma? Yes, however pathology results were not available at that time MTDD
== END 2018-10-24 17:12 | disposition home health service (06) | DRG 375 ==
LOC: EC 22:11 → 4SSUR 10-20 01:47
PROVIDERS: ADMIT Internal Medicine; ATTEND Internal Medicine
PROC: 0DBN8ZZ Excision of Sigmoid Colon, Via Natural or Artificial Opening Endoscopic (ICD-10-PCS; principal; 2018-10-20)
PROC: 0DBP8ZX Excision of Rectum, Via Natural or Artificial Opening Endoscopic, Diagnostic (ICD-10-PCS; 2018-10-20)
DX: C20 Malignant neoplasm of rectum (principal); K56.690 Other partial intestinal obstruction; N39.0 Urinary tract infection, site not specified; F03.91 Unspecified dementia, unspecified severity, with behavioral disturbance; I25.10 Atherosclerotic heart disease of native coronary artery without angina pectoris; F03.90 Unspecified dementia, unspecified severity, without behavioral disturbance, psychotic disturbance, mood disturbance, and anxiety; K63.5 Polyp of colon; B96.20 Unspecified Escherichia coli [E. coli] as the cause of diseases classified elsewhere; K21.9 Gastro-esophageal reflux disease without esophagitis; I10 Essential (primary) hypertension; D63.8 Anemia in other chronic diseases classified elsewhere; E11.649 Type 2 diabetes mellitus with hypoglycemia without coma; E83.39 Other disorders of phosphorus metabolism; Z79.82 Long term (current) use of aspirin; Z79.899 Other long term (current) drug therapy; Z79.4 Long term (current) use of insulin; Z95.5 Presence of coronary angioplasty implant and graft; Z87.891 Personal history of nicotine dependence; Z80.9 Family history of malignant neoplasm, unspecified
CPT/HCPCS: 36415; 45380; 45385; 74022; 74177; 80048; 80053; 81001; 82150; 82378; 82550; 82728; 83036; 83540; 83550; 83605; 83690; 83735; 84100; 85025; 85027; 86301; 87077; 87086; 87186; 87324; 88305; 88341; 88342; 93005; 96361; 96365; 96375; 99285

== ENCOUNTER → 2018-11-05 | Outpatient (CLI) | payer MEDICARE ==
--- NOTE | 2018-11-07 07:53 | PE ---
EXAMINATION TYPE: PET CT fusion skull to thigh DATE OF EXAM: 11/05/2018 COMPARISON: CT abdomen and pelvis October 20, 2018 and older CTs. HISTORY: Rectal cancer initial staging study TECHNIQUE: Following the intravenous administration of 10.65 mCi of F-18 FDG, whole body images are performed from the skull base to the midthigh. Images are reviewed on the computer in the coronal, a xial, and sagittal planes. Reconstructed rotating images are created on independent workstation and reviewed on the computer. A noncontrast CT is performed in conjunction with the PET scan. SCAN: Initial Scan FINDINGS: SKULL BASE AND NECK: No areas of suspicious hypermetabolic uptake. CHEST, MEDIASTINUM, AND HILAR REGION: No areas of hypermetabolic uptake. ABDOMEN AND PELVIS: There is moderate eccentric wall thickening of the rectum with perirectal fat str anding near axial image 234 with hypermetabolic uptake over round 2.3 cm area axial image 239, max LNIG V is 8.52. There is marked improvement in abnormal wall thickening of more proximal sigmoid colon on current PET/CT versus prior CT Consistent with resolving colitis. Some inferior urine leak is present . No additional areas of suspicious hypermetabolic uptake. OSSEOUS STRUCTURES: No suspicious hypermetabolic uptake. OTHER CT: Severe three-vessel coronary artery calcification and/or stents are present, correlate clin ically. Mild to moderate calcified plaque bilateral carotid bulbs, left greater than right. Mild to moderate underlying emphysematous change. Dependent rim calcified gallstone felt present. Slight low dense thickening to right adrenal gland fa vors benign hyperplasia. Moderate calcified plaque of the aorta extends into branch vessels. Berg ca theter remains present in the wall thickened bladder. Enlarged prostate gland consistent with BPH is noted. IMPRESSION: Primary rectal neoplasm. No suspicious adenopathy or metastatic disease identified.
== END | disposition home or self-care (01) ==
LOC: RADPETMAIN 13:48
PROVIDERS: ATTEND Internal Medicine Hematology & Oncology
DX: C20 Malignant neoplasm of rectum (principal)
CPT/HCPCS: 78815; A9552

== ENCOUNTER 2018-11-16 14:52 | Inpatient (IN) | payer MEDICARE ==
[2018-11-16] MEDS ORDERED: SODIUM CHLORIDE 0.9% 500 ML 500 ML IV STA (15:29)
--- NOTE | 2018-11-16 15:40 | ED ---
Nausea/Vomiting/Diarrhea HPI - General Chief complaint: Nausea/Vomiting/Diarrhea Stated complaint: diarrhea Time Seen by Provider: 11/16/18 15:28 Source: patient, family, EMS Mode of arrival: EMS Limitations: no limitations - History of Present Illness Initial comments: 88-year-old male with history of C. difficile colitis, rectal cancer presenting today for chief complaint of continued diarrhea weakness. Family states they contacted patient's infectious disease physician Dr. Shea who recommended admission to the hospital. Patient was discharged yesterday. Patient has been on oral vancomycin for treatment. Given patient's advanced age they were concerned of dehydration. Patient other complaints. Denies any chest pain shortness of breath denies any nausea or vomiting. Patient states he has persistent diarrhea denies any melena hematochezia. Patient denies any headache or dizziness. Remaining review of systems negative. Upon arrival patient vital signs within acceptable limits. Patient's heart rate is 51 however upon chart reveal patient appears to fluctuate between the 50s and 60s. Pt is afebrile - Related Data Home Medications Medication Instructions Recorded Confirmed Aspirin 325 mg PO DAILY 10/19/18 11/16/18 Atenolol [Tenormin] 25 mg PO DAILY PRN 10/19/18 11/16/18 Benazepril [Lotensin] 5 mg PO HS 10/19/18 11/16/18 Calcium Carbonate [Calcium] 600 mg PO DAILY 10/19/18 11/16/18 Dorzolamide HCl/Pf [Dorzolamide 2% 1 drop BOTH EYES BID 10/19/18 11/16/18 Eye Drop] Furosemide [Lasix] 20 mg PO DAILY 10/19/18 11/16/18 Insulin Aspart Protam & Aspart 10 unit SQ HS 10/19/18 11/16/18 [NovoLOG MIX 70-30 Flexpen] Insulin Aspart Protam & Aspart 26 unit SQ QAM 10/19/18 11/16/18 [NovoLOG MIX 70-30 Flexpen] Isosorbide Mononitrate [Isosorbide 30 mg PO DAILY 10/19/18 11/16/18 Mononitrate ER] Multivitamins, Thera [Multivitamin 1 tab PO DAILY 10/19/18 11/16/18 (formulary)] Nitroglycerin Sl Tabs [Nitrostat] 0.4 mg SUBLINGUAL Q5M PRN 10/19/18 11/16/18 Ranitidine HCl 150 mg PO HS 10/19/18 11/16/18 Ascorbic Acid [Vitamin C] 500 mg PO DAILY 11/07/18 11/16/18 Previous Rx's Medication Instructions Recorded Cholestyramine (with Sugar) 4 gm PO BID #30 pack 11/11/18 [Cholestyramine Packet] Vancomycin Oral Solution 125 mg PO Q6HR #100 ml 11/11/18 Allergies Allergy/AdvReac Type Severity Reaction Status Date / Time No Known Allergies Allergy Verified 11/16/18 15:58 Review of Systems ROS Statement: Those systems with pertinent positive or pertinent negative responses have been documented in the HPI. ROS Other: All systems not noted in ROS Statement are negative. Past Medical History Past Medical History: Coronary Artery Disease (CAD), Cancer, Dementia, Diabetes Mellitus, GERD/Reflux, Hypertension Additional Past Medical History / Comment(s): frequent diarrhea with bleeding at the beginning x4 mos-buttocks and coccyx raw,pedal edema,incontinent urine,payton catheter present-following with Dr Fan-very dark urine with foul odor History of Any Multi-Drug Resistant Organisms: None Reported Date of last positivie culture/infection: 11/08/2018 MDRO Source:: stool Past Surgical History: Heart Catheterization With Stent, Orthopedic Surgery Additional Past Surgical History / Comment(s): heart stents x4, right knee Past Anesthesia/Blood Transfusion Reactions: No Reported Reaction Additional Past Anesthesia/Blood Transfusion Reaction / Comment(s): never has h ad general anesthesia Date of Last Stent Placement:: 30yrs ago Past Psychological History: No Psychological Hx Reported Smoking Status: Former smoker Past Alcohol Use History: None Reported Past Drug Use History: None Reported - Past Family History Mother Family Medical History: No Reported History General Exam - General Exam Comments Initial Comments: General: The patient is awake and alert, in no distress Eye: Pupils are equal, round and reactive to light, extra-ocular movements are intact. No nystagmus. There is normal conjunctiva bilaterally. No signs of icterus. Ears, nose, mouth and throat: There are moist mucous membranes and no oral lesions. Neck: The neck is supple, there is no tenderness or JVD. Cardiovascular: There is a regular rate and rhythm. No murmur, rub or gallop is appreciated. Respiratory: Lungs are clear to auscultation, respirations are non-labored, breath sounds are equal. No wheezes, stridor, rales, or rhonchi. Gastrointestinal: Soft, non-distended, non-tender abdomen without masses or organomegaly noted. There is no rebound or guarding present. No CVA tenderness. Bowel sounds are unremarkable. Musculoskeletal: Normal ROM, no tenderness. Strength 5/5. Sensation intact. Pulses equal bilaterally 2+. Neurological: A&O x 3. CN II-XII intact, There are no obvious motor or sensory deficits. Coordination appears grossly intact. Speech is normal. Skin: Skin is warm and dry and no rashes or lesions are noted. Psychiatric: Cooperative, appropriate mood & affect, normal judgment. Limitations: no limitations Course Vital Signs 11/16/18 11/16/18 15:00 16:19 Temperature 98 F Pulse Rate 51 L 52 L Respiratory 18 16 Rate Blood Pressure 122/64 131/71 O2 Sat by Pulse 96 98 Oximetry Medical Decision Making - Medical Decision Making 88-year-old male presenting today for chief complaint of continued diarrhea. Patient has C. difficile on outpatient oral vancomycin. Instructed by Dr. Shea presents emergency department for admission to inpatient complaint of weakness.Electrolytes derangements on laboratory studies. White count within acceptable limits. Patient's blood pressure stable. Patient appears well. Patient given IV hydration. Patient was resumed on oral vancomycin as previ ously prescribed. We did contact Dr. Shea who recommended admission to medicine with him on consult. Family is agreeable prefers admission at this time. I did discuss the case with him provider Dr. Granados who spoke with both Dr. Shea admitting provider. Patient was held in the emergency department as a general medical hold. I did discuss result and plan with family and patient. Patient continues to appear well - Lab Data Result diagrams: 11/16/18 16:10 11/16/18 16:10 Lab Results 11/16/18 11/16/18 Range/Units 16:10 16:10 WBC 9.5 (3.8-10.6) k/uL RBC 3.90 L (4.30-5.90) m/uL Hgb 11.5 L (13.0-17.5) gm/dL Hct 35.4 L (39.0-53.0) % MCV 90.9 (80.0-100.0) fL MCH 29.6 (25.0-35.0) pg MCHC 32.6 (31.0-37.0) g/dL RDW 16.2 H (11.5-15.5) % Plt Count 457 H (150-450) k/uL Neutrophils % 72 % Lymphocytes % 20 % Monocytes % 4 % Eosinophils % 1 % Basophils % 0 % Neutrophils # 6.8 (1.3-7.7) k/uL Lymphocytes # 1.9 (1.0-4.8) k/uL Monocytes # 0.4 (0-1.0) k/uL Eosinophils # 0.1 (0-0.7) k/uL Basophils # 0.0 (0-0.2) k/uL Anisocytosis Slight Sodium 136 L (137-145) mmol/L Potassium 4.7 (3.5-5.1) mmol/L Chloride 102 (98-107) mmol/L Carbon Dioxide 28 (22-30) mmol/L Anion Gap 6 mmol/L BUN 15 (9-20) mg/dL Creatinine 1.10 (0.66-1.25) mg/dL Est GFR (CKD-EPI)AfAm 70 (>60 ml/min/1.73 sqM) Est GFR (CKD-EPI)NonAf 60 (>60 ml/min/1.73 sqM) Glucose 193 H (74-99) mg/dL Calcium 8.7 (8.4-10.2) mg/dL Total Bilirubin 0.3 (0.2-1.3) mg/dL AST 37 (17-59) U/L ALT 43 (21-72) U/L Alkaline Phosphatase 72 (38-126) U/L Total Protein 5.2 L (6.3-8.2) g/dL Albumin 2.9 L (3.5-5.0) g/dL Disposition Clinical Impression: C. difficile colitis, Diarrhea, Weakness Disposition: ADMITTED IP TO THIS [facility] Condition: Stable Is patient prescribed a controlled substance at d/c from ED?: No Referrals: Sang Campbell MD [Primary Care Provider] - 1-2 days Time of Disposition: 17:37 Decision to Admit Reason: Admit from EC Decision Date: 11/16/18 Decision Time: 17:37
[2018-11-16] MEDS ORDERED: SODIUM CHLORIDE 0.9% 1,000 ML IV ONE (16:08)
[2018-11-16 16:21] LABS: Anisocytosis Slight; Basophils % (A) 0 %; Eosinophils # (A) 0.1 k/uL (0-0.7); Eosinophils % (A) 1 %; HCT 35.4 % (39.0-53.0); HGB 11.5 gm/dL (13.0-17.5); Lymphocytes # (A) 1.9 k/uL (1.0-4.8); Lymphocytes % (A) 20 %; MCH 29.6 pg (25.0-35.0); MCHC 32.6 g/dL (31.0-37.0); MCV 90.9 fL (80.0-100.0); Mean Platelet Volume 6.6; Monocytes # (A) 0.4 k/uL (0-1.0); Monocytes % (A) 4 %; Neutrophils # (A) 6.8 k/uL (1.3-7.7); Neutrophils % (A) 72 %; Platelet Count 457 k/uL (150-450); RDW 16.2 % (11.5-15.5); WBC 9.5 k/uL (3.8-10.6)
[2018-11-16 16:31] LABS: Albumin 2.9 g/dL (3.5-5.0); Calcium 8.7 mg/dL (8.4-10.2); Potassium 4.7 mmol/L (3.5-5.1); Total Bilirubin 0.3 mg/dL (0.2-1.3); Total Protein 5.2 g/dL (6.3-8.2)
[2018-11-16] MEDS ORDERED: NALOXONE 0.4 MG/ML 1 ML VIAL IV PRN (17:38)
[2018-11-16] MEDS: SODIUM CHLORIDE 0.9% 1,000 ML IV SCH (18:34)
[2018-11-16] MEDS: VANCOMYCIN ORAL SOLUTION 250 MG/5 ML BOTTLE PO SCH (19:41)
[2018-11-16] MEDS: CHERRY FLAVOR 60 ML BOTTLE PO PRN (19:41)
--- NOTE | 2018-11-16 22:22 | P.HPIM ---
History of Present Illness H&P Date: 11/16/18 The patient is an 88 yo M with a PMH of recently diagnosed rectal adenocarcinoma (without metastasis), being followed by Dr Ramirez, dementia, CAD, DM, and HTN with a recent admission from 11/07/18 for [facility] with diarrhea and suspected UTI, subsequent diagnosis of C. diff colitis and was started on oral vancomycin with plans of undergoing palliative radiation was discharged yesterday 11/15/18 to home after his diarrhea had improved and he was to continue on oral vancomycin and cholestyramine. The patient's daughter and at the bedside provided the history and reported that they were able to pickle sorter his prescription soon after discharge and he received his scheduled doses of medications including cholestyramine and vancomycin. They report that earlier today, he developed worsening diarrhea and had persistent soft bowel movements 4-6 since morning, large, foul-smelling, without mucous or blood. The patient himself denied any active complaints though was only oriented to self. The family further denied any complaints from the patient at home including fever, chills, abdominal pain, nausea, or vomiting. The patient underwent an extensive evaluation in the ED with laboratory findings of WBC count 9.5, Hgb 11.5, platelets 457, BUN 15, and Cr 1.10. The patient was subsequently admitted for persistent diarrhea. Review of Systems Pertinent positives and negatives as discussed in HPI, a complete review of systems was performed and all other systems are negative. Past Medical History Past Medical History: Coronary Artery Disease (CAD), Cancer, Dementia, Diabetes Mellitus, GERD/Reflux, Hypertension Additional Past Medical History / Comment(s): frequent diarrhea with bleeding at the beginning x4 mos-buttocks and coccyx raw,pedal edema,incontinent urine,payton catheter present-following with Dr Fan-very dark urine with foul odor History of Any Multi-Drug Resistant Organisms: None Reported Date of last positivie culture/infection: 11/08/2018 MDRO Source:: stool Past Surgical History: Heart Catheterization With Stent, Orthopedic Surgery Additional Past Surgical History / Comment(s): heart stents x4, right knee Past Anesthesia/Blood Transfusion Reactions: No Reported Reaction Additional Past Anesthesia/Blood Transfusion Reaction / Comment(s): never has had general anesthesia Date of Last Stent Placement:: 30yrs ago Past Psychological History: No Psychological Hx Reported Additional Psychological History / Comment(s): to his second of 52 years. Retired. No international travel. No animals in the home. Adult jeannine richards are very engaged and helpful. No tobacco use Smoking Status: Former smoker Past Alcohol Use History: None Reported Additional Past Alcohol Use History / Comment(s): quit smoking cigars 10-15 yrs ago,smoked occas Past Drug Use History: None Reported - Past Family History Mother Family Medical History: No Reported History Father Family Medical History: Hyperlipidemia Medications and Allergies Home Medications Medication Instructions Recorded Confirmed Type Aspirin 325 mg PO DAILY 10/19/18 11/16/18 History Atenolol [Tenormin] 25 mg PO DAILY PRN 10/19/18 11/16/18 History Benazepril [Lotensin] 5 mg PO HS 10/19/18 11/16/18 History Calcium Carbonate [Calcium] 600 mg PO DAILY 10/19/18 11/16/18 History Dorzolamide HCl/Pf [Dorzolamide 2% 1 drop BOTH EYES BID 10/19/18 11/16/18 History Eye Drop] Furosemide [Lasix] 20 mg PO DAILY 10/19/18 11/16/18 History Insulin Aspart Protam & Aspart 10 unit SQ HS 10/19/18 11/16/18 History [NovoLOG MIX 70-30 Flexpen] Insulin Aspart Protam & Aspart 26 unit SQ QAM 10/19/18 11/16/18 History [NovoLOG MIX 70-30 Flexpen] Isosorbide Mononitrate [Isosorbide 30 mg PO DAILY 10/19/18 11/16/18 History Mononitrate ER] Multivitamins, Thera [Multivitamin 1 tab PO DAILY 10/19/18 11/16/18 History (formulary)] Nitroglycerin Sl Tabs [Nitrostat] 0.4 mg SUBLINGUAL Q5M PRN 10/19/18 11/16/18 History Ranitidine HCl 150 mg PO HS 10/19/18 11/16/18 History Ascorbic Acid [Vitamin C] 500 mg PO DAILY 11/07/18 11/16/18 History Cholestyramine (with Sugar) 4 gm PO BID #30 pack 11/11/18 11/16/18 Rx [Cholestyramine Packet] Vancomycin Oral Solution 125 mg PO Q6HR #100 ml 11/11/18 11/16/18 Rx Allergies Allergy/AdvReac Type Severity Reaction Status Date / Time No Known Allergies Allergy Verified 11/16/18 15:58 Physical Exam Vitals: Vital Signs Temp Pulse Resp BP Pulse Ox 11/16/18 16:19 52 L 16 131/71 98 11/16/18 15:00 98 F 51 L 18 122/64 96 Intake and Output 11/16/18 11/16/18 11/16/18 06:59 14:59 22:59 Other: Weight 68.039 kg General: non toxic, no distress, appears at stated age, normal weight Derm: no unusual rashes/lesions no unusual ecchymoses, warm, dry Head: atraumatic, normocephalic, symmetric Eyes: EOMI, no lid lag, anicteric sclera, pupils equal round reactive to light ENT: Nose and ears atraumatic, no thrush, no pharyngeal erythema Neck: No thyromegaly, no cervical lymphadenopathy, trachea midline, supple Mouth: no lip lesion, mucus membranes moist Cardiovascular: S1S2 reg, bradycardic, no murmur, positive posterior tibial pulse bilateral, trace lobo LE edema, capillary refill less than 2 seconds Lungs: CTA bilateral, no rhonchi, no rales , no accessory muscle use Abdominal: Mildly distended, nontender to palpation, no guarding, no appreciable organomegaly, normal bowel sounds Ext: no gross muscle atrophy, muscle strength 4 out of 5 in all 4 extremities grossly, no contractures, Neuro: CN II-XI grossly intact, light touch intact all 4 extremities, finger to nose within normal limits, Psych: Oriented to self only Results CBC & Chem 7: 11/16/18 16:10 11/16/18 16:10 Labs: Abnormal Lab Results - Last 24 Hours (Table) 11/16/18 11/16/18 Range/Units 16:10 16:10 RBC 3.90 L (4.30-5.90) m/uL Hgb 11.5 L (13.0-17.5) gm/dL Hct 35.4 L (39.0-53.0) % RDW 16.2 H (11.5-15.5) % Plt Count 457 H (150-450) k/uL Sodium 136 L (137-145) mmol/L Glucose 193 H (74-99) mg/dL Total Protein 5.2 L (6.3-8.2) g/dL Albumin 2.9 L (3.5-5.0) g/dL Thrombosis Risk Factor Assmnt - Choose All That Apply Any of the Below Risk Factors Present?: Yes Each Factor Represents 1 point: Medical pt on bed rest Other Risk Factors: Yes Each Risk Factor Represents 3 Points: Age 75 years or older Other congenital or acquired thrombophilia - If yes, enter type in comment: No Thrombosis Risk Factor Assessment Total Risk Factor Score: 4 Thrombosis Risk Factor Assessment Level: Moderate Risk Assessment and Plan Plan: Diarrhea in setting of current C. diff treatment and recent diagnosis of Rectal adeno-ca -Will continue with Oral vancomycin and cholestyramine -ID consult -Full liquid diet for now -Obtain abd plain films for now DM -CHRISTINA with FS for now -Will reassess initiation of home insulin regimen in setting of poor oral intake and diarrhea HTN -Hold anti-hypertensives in setting of borderline BP -Resume as warranted CAD -C/w ASA DVT prophylaxis -Heparin The patient is admitted with an anticipated greater than 2 midnight stay for evaluation of diarrhea. CODE STATUS:No Code Discussed with: Patient, daughter, Anticipated discharge date: 11/19/[address]: Home A total of 45 minutes was spent on the care of this complex patient more than 50% of the time was spent in counseling and care coordination.
--- NOTE | 2018-11-16 22:50 | XR ---
EXAM: XR Abdomen, 2 Views CLINICAL HISTORY: ITS.REASON XR Reason: Diarrhea w/ hx of rectal ca TECHNIQUE: Frontal view of the abdomen/pelvis with upright view of the abdomen. COMPARISON: Comparison 11/12/18 and 10/20/18 FINDINGS: Intraperitoneal space: No visualized free air under the diaphragm. Nonspecific density overlies the right lateral abdomen on supine view, not definitively seen on the upright view. Gastrointestinal tract: Small bowel caliber is within normal limits. There is a moderately prominent proximal colonic stool burden. The remainder the colon is not well characterized radiographically. Bones/joints: Stable degenerative vertebral changes are noted. Vasculature: Pelvic phleboliths are noted. IMPRESSION: Moderately prominent colonic stool in the proximal colon. The remainder of the colon is not well characterized radiographically. The visualized small bowel has normal caliber. Nonspecific density overlying the right lateral abdomen on supine view, possibly external to the patient.
[2018-11-17] MEDS: CHERRY FLAVOR 60 ML BOTTLE PO PRN ×2 (00:50→05:46)
[2018-11-17] MEDS: VANCOMYCIN ORAL SOLUTION 250 MG/5 ML BOTTLE PO SCH ×5 (00:50→18:13)
[2018-11-17 02:21] LABS: Glucose,Whole Blood 158 mg/dL (75-99)
[2018-11-17 03:20] LABS: Amorphous Sediment,Urine Rare /hpf; Appearance,Urine Clear (Clear); Bilirubin,Urine Negative (Negative); Blood,Urine Moderate (Negative); Color,Urine Yellow; Glucose,Urine (UA) Negative (Negative); Hyaline Casts,Urine 1 /lpf (0-2); Ketones,Urine Negative (Negative); Leukocyte Esterase,Urine Negative (Negative); Mucus,Urine Rare /hpf; Nitrite,Urine Negative (Negative); Protein,Urine 1+ (Negative); RBC,Urine 64 /hpf (0-5); Specific Gravity,Urine 1.013 (1.001-1.035); Squamous Epithelial Cell,Urine 1 /hpf (0-4); Urobilinogen,Urine <2.0 mg/dL (<2.0); WBC,Urine 4 /hpf (0-5)
[2018-11-17] MEDS: SODIUM CHLORIDE 0.9% 1,000 ML IV SCH ×3 (05:46→17:51)
[2018-11-17 07:18] LABS: Glucose,Whole Blood 166 mg/dL (75-99)
[2018-11-17] MEDS: CALCIUM CARBONATE 500 MG CHEWABLE PO SCH (07:57)
[2018-11-17] MEDS: MULTIVITAMINS, THERA 1 EACH TAB PO SCH (07:58)
[2018-11-17] MEDS: CHOLESTYRAMINE (WITH SUGAR) 4 GM PACKET PO SCH ×2 (07:58→20:15)
[2018-11-17] MEDS: ASCORBIC ACID 500 MG TAB PO SCH (07:58)
[2018-11-17] MEDS: INSULIN ASPART (NovoLOG) 100 UNIT/ML VIAL SQ SCH ×4 (07:58→21:48)
[2018-11-17] MEDS: ENOXAPARIN 40 MG/0.4 ML SYRINGE SQ SCH (07:59)
[2018-11-17] MEDS: FUROSEMIDE 20 MG TAB PO SCH (08:01)
[2018-11-17] MEDS: ASPIRIN 325 MG TAB PO SCH (08:04)
[2018-11-17] MEDS: DORZOLAMIDE HCL 2% DROPS 10 ML BTL BOTH EYES SCH ×2 (08:17→20:16)
[2018-11-17] MEDS ORDERED: ISOSORBIDE MONONITRATE ER 30 MG TAB.ER.24H PO SCH (09:00)
--- NOTE | 2018-11-17 09:51 | P.CONS ---
History of Present Illness - Reason for Consult Consult date: 11/17/18 C. difficile colitis - History of Present Illness this is an 88-year-old male recently diagnosed with rectal carcinoma with recommendations for palliativeradiation treatment as patient would not fare well with surgical intervention due to underlying dementia. He was hospitalized November 07 through November 15 for acute kidney injury and was found to have C. difficile colitis at that time and started on oral vancomycin. According to nursing staff, patient had 10 bowel movements during the awake overnight monitor but these were soft and formed. Patient has had 1 bowel movement since 6:30 this morning. Patient is able to eat and seems to be tolerating diet without nausea or vomiting. He denies any abdominal pain. Patient does have a chronic Payton catheter which has been changed on this admission. Patient was brought into [facility] emergency center becauseof continued diarrhea and worsening weakness and concern for dehydration. Patient was started on IV fluids and admitted to the [facility] floor and continued on oral vancomycin. Review of Systems Constitutional: Reports fatigue, Reports poor appetite, Reports weakness, Denies anorexia, Denies chills, Denies fever, Denies weight loss Ears, nose, mouth and throat: Denies dysphagia, Denies nasal congestion, Denies nasal discharge, Denies vertigo Cardiovascular: Reports leg edema, Denies decreased exercise tolerance, Denies dyspnea on exertion, Denies lightheadedness, Denies shortness of breath, Denies syncope Respiratory: Denies cough, Denies cough with sputum, Denies dyspnea, Denies excessive sputum, Denies hemoptysis, Denies home oxygen, Denies wheezing Gastrointestinal: Reports diarrhea, Reports loss of appetite, Denies abdominal pain, Denies constipation, Denies melena, Denies nausea, Denies vomiting Genitourinary: Reports urinary retention, Denies dysuria, Denies urinary frequency, Denies urinary hesitancy Integumentary: Denies darkening of skin, Denies pruritus, Denies rash, Denies wounds Neurological: Reports confusion, Denies aphasia, Denies change in mentation, Denies change in speech, Denies gait dysfunction, Denies seizures Psychiatric: Denies anxiety, Denies depression Endocrine: Denies fatigue, Denies weight change Past Medical History Past Medical History: Coronary Artery Disease (CAD), Cancer, Dementia, Diabetes Mellitus, GERD/Reflux, Hypertension Additional Past Medical History / Comment(s): frequent diarrhea with bleeding at the beginning x4 mos-buttocks and coccyx raw,pedal edema,incontinent urine,payton catheter present-following with Dr Fan-very dark urine with foul odor History of Any Multi-Drug Resistant Organisms: None Reported Year Discovered:: 11/08/2018 MDRO Source:: stool Past Surgical History: Heart Catheterization With Stent, Orthopedic Surgery Additional Past Surgical History / Comment(s): heart stents x4, right knee Past Anesthesia/Blood Transfusion Reactions: No Reported Reaction Additional Past Anesthesia/Blood Transfusion Reaction / Comm: never has had general anesthesia Date of Last Stent Placement:: 30yrs ago Past Psychological History: No Psychological Hx Reported Additional Psychological History / Comment(s): to his second of 52 years. Retired. No international travel. No animals in the home. Adult children are very engaged and helpful. No tobacco use Smoking Status: Former smoker Past Alcohol Use History: None Reported Additional Past Alcohol Use History / Comment(s): quit smoking cigars 10-15 yrs ago,smoked occas Past Drug Use History: None Reported - Past Family History Mother Family Medical History: No Reported History Father Family Medical History: Hyperlipidemia Medications and Allergies Home Medications Medication Instructions Recorded Confirmed Type Aspirin 325 mg PO DAILY 10/19/18 11/16/18 History Atenolol [Tenormin] 25 mg PO DAILY PRN 10/19/18 11/16/18 History Benazepril [Lotensin] 5 mg PO HS 10/19/18 11/16/18 History Calcium Carbonate [Calcium] 600 mg PO DAILY 10/19/18 11/16/18 History Dorzolamide HCl/Pf [Dorzolamide 2% 1 drop BOTH EYES BID 10/19/18 11/16/18 History Eye Drop] Furosemide [Lasix] 20 mg PO DAILY 10/19/18 11/16/18 History Insulin Aspart Protam & Aspart 10 unit SQ HS 10/19/18 11/16/18 History [NovoLOG MIX 70-30 Flexpen] Insulin Aspart Protam & Aspart 26 unit SQ QAM 10/19/18 11/16/18 History [NovoLOG MIX 70-30 Flexpen] Isosorbide Mononitrate [Isosorbide 30 mg PO DAILY 10/19/18 11/16/18 History Mononitrate ER] Multivitamins, Thera [Multivitamin 1 tab PO DAILY 10/19/18 11/16/18 History (formulary)] Nitroglycerin Sl Tabs [Nitrostat] 0.4 mg SUBLINGUAL Q5M PRN 10/19/18 11/16/18 History Ranitidine HCl 150 mg PO HS 10/19/18 11/16/18 History Ascorbic Acid [Vitamin C] 500 mg PO DAILY 11/07/18 11/16/18 History Cholestyramine (with Sugar) 4 gm PO BID #30 pack 11/11/18 11/16/18 Rx [Cholestyramine Packet] Vancomycin Oral Solution 125 mg PO Q6HR #100 ml 11/11/18 11/16/18 Rx Allergies Allergy/AdvReac Type Severity Reaction Status Date / Time No Known Allergies Allergy Verified 11/16/18 15:58 Physical Exam Vitals: Vital Signs Temp Pulse Pulse Resp BP BP Pulse Ox 11/17/18 05:44 97.8 F 52 L 20 175/66 95 11/16/18 22:45 97.9 F 50 L 22 171/67 97 11/16/18 16:19 52 L 16 131/71 98 11/16/18 15:00 98 F 51 L 18 122/64 96 Intake and Output 11/16/18 11/17/18 11/17/18 22:59 06:59 14:59 Output Total 100 Balance -100 Output: Urine 100 Other: Voiding Method Indwelling Catheter # Bowel Movements 4 Weight 68.039 kg Gen: This is an 88-year-old male. He has any temperature appears to be comfortable and in no acute distress. HEENT: Head is atraumatic, normocephalic. Pupils equal, round. Sclerae is anicteric. oral mucous membranes are moist. NECK: Supple. No JVD. No lymphadenopathy. No thyromegaly. LUNGS: Clear to auscultation. No wheezes or rhonchi. No intercostal retractions. HEART: Regular rate and rhythm. systolic murmur. ABDOMEN: Soft. Bowel sounds are present. No masses. No tenderness.Payton catheter draining clear kezia urine. EXTREMITIES: 1+ bilateral pedal edema. No calf tenderness.no rashes or wounds noted. NEUROLOGICAL: Patient is awake, alert and oriented x1-2. Cranial nerves 2 through 12 are grossly intact. Results Results: Laboratory Tests Range/Units 11/16/18 11/16/18 11/17/18 16:10 16:10 02:20 WBC (3.8-10.6) k/uL 9.5 RBC (4.30-5.90) m/uL 3.90 L Hgb (13.0-17.5) gm/dL 11.5 L Hct (39.0-53.0) % 35.4 L MCV (80.0-100.0) fL 90.9 MCH (25.0-35.0) pg 29.6 MCHC (31.0-37.0) g/dL 32.6 RDW (11.5-15.5) % 16.2 H Plt Count (150-450) k/uL 457 H Neutrophils % % 72 Lymphocytes % % 20 Monocytes % % 4 Eosinophils % % 1 Basophils % % 0 Neutrophils # (1.3-7.7) k/uL 6.8 Lymphocytes # (1.0-4.8) k/uL 1.9 Monocytes # (0-1.0) k/uL 0.4 Eosinophils # (0-0.7) k/uL 0.1 Basophils # (0-0.2) k/uL 0.0 Anisocytosis Slight Sodium (137-145) mmol/L 136 L Potassium (3.5-5.1) mmol/L 4.7 Chloride (98-107) mmol/L 102 Carbon Dioxide (22-30) mmol/L 28 Anion Gap mmol/L 6 BUN (9-20) mg/dL 15 Creatinine (0.66-1.25) mg/dL 1.10 Est GFR (CKD-EPI)AfAm (>60 ml/min/1.73 sqM) 70 Est GFR (CKD-EPI)NonAf (>60 ml/min/1.73 sqM) 60 Glucose (74-99) mg/dL 193 H POC Glucose (mg/dL) (75-99) mg/dL 158 H POC Glu Inspector Filters ID Gatica, Sailaja Calcium (8.4-10.2) mg/dL 8.7 Total Bilirubin (0.2-1.3) mg/dL 0.3 AST (17-59) U/L 37 ALT (21-72) U/L 43 Alkaline Phosphatase (38-126) U/L 72 Total Protein (6.3-8.2) g/dL 5.2 L Albumin (3.5-5.0) g/dL 2.9 L Urine Color Urine Appearance (Clear) Urine pH (5.0-8.0) Ur Specific [place] (1.001-1.035) Urine Protein (Negative) Urine Glucose (UA) (Negative) Urine Ketones (Negative) Urine Blood (Negative) Urine Nitrite (Negative) Urine Bilirubin (Negative) Urine Urobilinogen (<2.0) mg/dL Ur Leukocyte Esterase (Negative) Urine RBC (0-5) /hpf Urine WBC (0-5) /hpf Ur Squamous Epith Cells (0-4) /hpf Amorphous Sediment (None) /hpf Hyaline Casts (0-2) /lpf Urine Mucus (None) /hpf Range/Units 11/17/18 11/17/18 02:30 07:17 WBC (3.8-10.6) k/uL RBC (4.30-5.90) m/uL Hgb (13.0-17.5) gm/dL Hct (39.0-53.0) % MCV (80.0-100.0) fL MCH (25.0-35.0) pg MCHC (31.0-37.0) g/dL RDW (11.5-15.5) % Plt Count (150-450) k/uL Neutrophils % % Lymphocytes % % Monocytes % % Eosinophils % % Basophils % % Neutrophils # (1.3-7.7) k/uL Lymphocytes # (1.0-4.8) k/uL Monocytes # (0-1.0) k/uL Eosinophils # (0-0.7) k/uL Basophils # (0-0.2) k/uL Anisocytosis Sodium (137-145) mmol/L Potassium (3.5-5.1) mmol/L Chloride (98-107) mmol/L Carbon Dioxide (22-30) mmol/L Anion Gap mmol/L BUN (9-20) mg/dL Creatinine (0.66-1.25) mg/dL Est GFR (CKD-EPI)AfAm (>60 ml/min/1.73 sqM) Est GFR (CKD-EPI)NonAf (>60 ml/min/1.73 sqM) Glucose (74-99) mg/dL POC Glucose (mg/dL) (75-99) mg/dL 166 H POC Glu Inspector Filters ID Nadya Sutherland Calcium (8.4-10.2) mg/dL Total Bilirubin (0.2-1.3) mg/dL AST (17-59) U/L ALT (21-72) U/L Alkaline Phosphatase (38-126) U/L Total Protein (6.3-8.2) g/dL Albumin (3.5-5.0) g/dL Urine Color Yellow Urine Appearance (Clear) Clear Urine pH (5.0-8.0) 6.0 Ur Specific [place] (1.001-1.035) 1.013 Urine Protein (Negative) 1+ H Urine Glucose (UA) (Negative) Negative Urine Ketones (Negative) Negative Urine Blood (Negative) Moderate H Urine Nitrite (Negative) Negative Urine Bilirubin (Negative) Negative Urine Urobilinogen (<2.0) mg/dL <2.0 Ur Leukocyte Esterase (Negative) Negative Urine RBC (0-5) /hpf 64 H Urine WBC (0-5) /hpf 4 Ur Squamous Epith Cells (0-4) /hpf 1 Amorphous Sediment (None) /hpf Rare H Hyaline Casts (0-2) /lpf 1 Urine Mucus (None) /hpf Rare H CBC & Chem 7: 11/16/18 16:10 11/16/18 16:10 Labs: Abnormal Lab Results - Last 24 Hours (Table) 11/16/18 11/16/18 11/17/18 Range/Units 16:10 16:10 02:20 RBC 3.90 L (4.30-5.90) m/uL Hgb 11.5 L (13.0-17.5) gm/dL Hct 35.4 L (39.0-53.0) % RDW 16.2 H (11.5-15.5) % Plt Count 457 H (150-450) k/uL Sodium 136 L (137-145) mmol/L Glucose 193 H (74-99) mg/dL POC Glucose (mg/dL) 158 H (75-99) mg/dL Total Protein 5.2 L (6.3-8.2) g/dL Albumin 2.9 L (3.5-5.0) g/dL Urine Protein (Negative) Urine Blood (Negative) Urine RBC (0-5) /hpf Amorphous Sediment (None) /hpf Urine Mucus (None) /hpf 11/17/18 11/17/18 Range/Units 02:30 07:17 RBC (4.30-5.90) m/uL Hgb (13.0-17.5) gm/dL Hct (39.0-53.0) % RDW (11.5-15.5) % Plt Count (150-450) k/uL Sodium (137-145) mmol/L Glucose (74-99) mg/dL POC Glucose (mg/dL) 166 H (75-99) mg/dL Total Protein (6.3-8.2) g/dL Albumin (3.5-5.0) g/dL Urine Protein 1+ H (Negative) Urine Blood Moderate H (Negative) Urine RBC 64 H (0-5) /hpf Amorphous Sediment Rare H (None) /hpf Urine Mucus Rare H (None) /hpf Assessment and Plan Plan: this is an 88-year-old male who presents to hospital withdiarrhea and weakness. Patient is currently being treated for C. difficile colitis and continued on oral vancomycin. Patient will require isolation for the C. difficile colitis.the patient has underlying rectal carcinoma which may be contributing to diarrhea. Continues supportive care. Further recommendations as patient progresses. The above dictated assessment and findings were discussed with Dr. Shea. The impression and plan of care have been directed as dictated. Eva Avila nurse practitioner acting as scribe for Dr. Shea.
[2018-11-17 11:02] LABS: HCT 38.8 % (39.0-53.0); HGB 11.8 gm/dL (13.0-17.5); MCH 28.6 pg (25.0-35.0); MCHC 30.6 g/dL (31.0-37.0); MCV 93.7 fL (80.0-100.0); Mean Platelet Volume 6.1; Platelet Count 507 k/uL (150-450); RBC 4.14 m/uL (4.30-5.90); WBC 10.3 k/uL (3.8-10.6)
--- NOTE | 2018-11-17 11:12 | P.PN ---
Subjective Progress Note Date: 11/17/18 Patient seen and examined at bedside has had 3 loose formed stools today and apparently had 10 overnight. Patient complains of weakness but is able to get up and ambulate on his own to the restroom and back. Patient not does not appear clinically dehydrated his creatinine is normal as well as his labs today. Blood pressure elevated this morning restarted his home medications except for his atenolol as a patient has been bradycardic. Afebrile overnight Objective - Vital Signs Vital signs: Vital Signs Temp 97.8 F 11/17/18 05:44 Pulse 58 L 11/17/18 09:57 Resp 20 11/17/18 05:44 BP 154/70 11/17/18 09:57 Pulse Ox 95 11/17/18 05:44 Intake & Output 11/16/18 11/17/18 11/17/18 18:59 06:59 18:59 Output Total 100 Balance -100 Weight 68.039 kg Output: Urine 100 Other: Voiding Method Indwelling Catheter Indwelling Catheter # Bowel Movements 4 3 - Exam Constitutional: No acute distress, conversant, pleasant Eyes: Anicteric sclerae, moist conjunctiva, no lid-lag, PERRLA ENMT: NC/AT,Oropharynx clear, no erythema, exudates Neck:Supple, FROM, no masses, or JVD, No carotid bruits; No thyromegaly Lungs: Clear to auscultation, Clear to percussion, Normal respiratory effort, no accessory muscle use Cardiovascular: Heart regular in rate and rhythm, No murmurs, gallops, or rubs no peripheral edema Abdominal: Soft Nontender, nom distended, no guarding, no rebound or rigidity, Normoactive bowel sounds No hepatomegaly, No splenomegaly, No palpable mass No abdominal wall hernia noted Skin: Normal temperature, tone, texture, turgor, No induration No subcutaneous nodules, No rash, lesions, No ulcers Extremities:No digital cyanosis No clubbing, Pedal pulses intact and symmetrical Radial pulses intact and symmetrical Normal gait and station, No calf tenderness Psychiatric: Alert and oriented to person, place and time, Appropriate affect Intact judgement Neuro: Muscles Strength 5/5 in all 4 extremities, Sensation to light touch grossly present throughout, Cranial nerves II-XII grossly intact. No focal sensory deficits - Labs CBC & Chem 7: 11/18/18 08:08 11/18/18 08:08 Labs: Abnormal Lab Results - Last 24 Hours (Table) 11/16/18 11/16/18 11/17/18 Range/Units 16:10 16:10 02:20 RBC 3.90 L (4.30-5.90) m/uL Hgb 11.5 L (13.0-17.5) gm/dL Hct 35.4 L (39.0-53.0) % MCHC (31.0-37.0) g/dL RDW 16.2 H (11.5-15.5) % Plt Count 457 H (150-450) k/uL Sodium 136 L (137-145) mmol/L Glucose 193 H (74-99) mg/dL POC Glucose (mg/dL) 158 H (75-99) mg/dL Total Protein 5.2 L (6.3-8.2) g/dL Albumin 2.9 L (3.5-5.0) g/dL Urine Protein (Negative) Urine Blood (Negative) Urine RBC (0-5) /hpf Amorphous Sediment (None) /hpf Urine Mucus (None) /hpf 11/17/18 11/17/18 11/17/18 Range/Units 02:30 07:17 10:40 RBC 4.14 L (4.30-5.90) m/uL Hgb 11.8 L (13.0-17.5) gm/dL Hct 38.8 L (39.0-53.0) % MCHC 30.6 L (31.0-37.0) g/dL RDW (11.5-15.5) % Plt Count 507 H (150-450) k/uL Sodium (137-145) mmol/L Glucose (74-99) mg/dL POC Glucose (mg/dL) 166 H (75-99) mg/dL Total Protein (6.3-8.2) g/dL Albumin (3.5-5.0) g/dL Urine Protein 1+ H (Negative) Urine Blood Moderate H (Negative) Urine RBC 64 H (0-5) /hpf Amorphous Sediment Rare H (None) /hpf Urine Mucus Rare H (None) /hpf Assessment and Plan (1) C. difficile diarrhea Narrative/Plan: * Continue oral vancomycin along with Questran * Patient continues to have significant diarrhea * Id been consulted for further recommendations Current Visit: Yes Status: Acute Code(s): A04.72 - ENTEROCOLITIS D/T CLOSTRIDIUM DIFFICILE, NOT SPCF RECUR SNOMED Code(s): 2312429632407 (2) Bradycardia Narrative/Plan: * Continue to hold his beta bony Current Visit: Yes Status: Acute Code(s): R00.1 - BRADYCARDIA, UNSPECIFIED SNOMED Code(s): 69081557 (3) Primary colorectal adenocarcinoma Current Visit: No Status: Acute Priority: High Code(s): C19 - MALIGNANT NEOPLASM OF RECTOSIGMOID JUNCTION SNOMED Code(s): 907128354 (4) Essential hypertension Narrative/Plan: * Blood pressure control this morning as a patient has not restarted his home regimen * resumed on lisinopril and Imdur Current Visit: Yes Status: Acute Code(s): I10 - ESSENTIAL (PRIMARY) HYPERTENSION SNOMED Code(s): 74687034 (5) Iron deficiency anemia Narrative/Plan: * Likely secondary to underlying malignancy. Current Visit: No Status: Acute Code(s): D50.9 - IRON DEFICIENCY ANEMIA, UNSPECIFIED SNOMED Code(s): 89749711
[2018-11-17 11:15] LABS: Albumin 3.2 g/dL (3.5-5.0); Calcium 8.6 mg/dL (8.4-10.2); Potassium 4.2 mmol/L (3.5-5.1); Total Bilirubin 0.3 mg/dL (0.2-1.3); Total Protein 5.8 g/dL (6.3-8.2)
[2018-11-17 12:54] VITALS: BMI 23.5
[2018-11-17 13:22] LABS: Glucose,Whole Blood 178 mg/dL (75-99)
[2018-11-17 16:53] LABS: Glucose,Whole Blood 217 mg/dL (75-99)
[2018-11-17 20:44] LABS: Glucose,Whole Blood 151 mg/dL (75-99)
[2018-11-17] MEDS ORDERED: LISINOPRIL 5 MG TAB PO SCH (21:00)
--- NOTE | 2018-11-17 23:07 | P.CON ---
Consult Note - . Consult date: 11/17/18 Assessment/Plan:: this is an 88-year-old male recently diagnosed with rectal carcinoma with recommendations for palliativeradiation treatment as patient would not fare well with surgical intervention due to underlying dementia. He was hospitalized November 07 through November 15 for acute kidney injury and was found to have C. difficile colitis at that time and started on oral vancomycin. 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 Patient has had 1 bowel movement since 6:30 this morning. Patient is able to eat and seems to be tolerating diet without nausea or vomiting. He denies any abdominal pain. Patient does have a chronic Berg catheter which has been changed on this admission. Patient was brought into [facility] emergency center becauseof continued diarrhea and worsening weakness and concern for dehydration. Patient was started on IV fluids and admitted to the [facility] floor and continued on oral vancomycin. Please see the consult note is dictated by nurse practitioner Mrs. Eva Davis. This 88-year-old gentleman has profound dementia but is comfortable at this point in time. The patient is now week due to this persistence of his C. diff colitis, profound diarrhea and some dehydration. The patient will be again evaluated by physical therapy with his marked worsening of his status. He likely will require transfer to rehab since he currently is requiring 1-2 people for a cyst. Continue to treat the C. diff colitis with vancomycin, and hospital seems to be improving. If there is any worsening with transition to Dificid. C holestyramine is being utilized to bind toxin and reduce frequency of stool. I agree with evaluation, assessment and plan as dictated by nurse practitioner Mrs. Eva Avila.
[2018-11-18] MEDS: VANCOMYCIN ORAL SOLUTION 250 MG/5 ML BOTTLE PO SCH ×4 (00:27→16:44)
[2018-11-18] MEDS: CHERRY FLAVOR 60 ML BOTTLE PO PRN ×4 (00:27→16:44)
[2018-11-18 03:45] LABS: Glucose,Whole Blood 143 mg/dL (75-99)
[2018-11-18 07:20] LABS: Glucose,Whole Blood 159 mg/dL (75-99)
[2018-11-18] MEDS ORDERED: LISINOPRIL 5 MG TAB PO STA (08:00)
[2018-11-18 08:24] LABS: Basophils % (A) 0 %; Eosinophils # (A) 0.2 k/uL (0-0.7); Eosinophils % (A) 3 %; HCT 37.3 % (39.0-53.0); HGB 11.8 gm/dL (13.0-17.5); Lymphocytes # (A) 1.8 k/uL (1.0-4.8); Lymphocytes % (A) 27 %; MCHC 31.5 g/dL (31.0-37.0); Mean Platelet Volume 6.1; Monocytes # (A) 0.2 k/uL (0-1.0); Monocytes % (A) 4 %; Neutrophils # (A) 4.5 k/uL (1.3-7.7); Neutrophils % (A) 65 %; Platelet Count 428 k/uL (150-450); RBC 4.05 m/uL (4.30-5.90); WBC 6.8 k/uL (3.8-10.6)
[2018-11-18 08:36] LABS: African American GFR (CKD) >90 (>60 ml/min/1.73 sqM); Anion Gap 4 mmol/L; Blood Urea Nitrogen 7 mg/dL (9-20); Calcium 8.1 mg/dL (8.4-10.2); Carbon Dioxide 27 mmol/L (22-30); Chloride 108 mmol/L (98-107); Glucose 156 mg/dL (74-99); Potassium 3.9 mmol/L (3.5-5.1); Sodium 139 mmol/L (137-145)
[2018-11-18] MEDS ORDERED: ISOSORBIDE MONONITRATE ER 60 MG TAB.ER.24H PO SCH (09:00)
[2018-11-18] MEDS: CALCIUM CARBONATE 500 MG CHEWABLE PO SCH (09:53)
[2018-11-18] MEDS: ASPIRIN 325 MG TAB PO SCH (09:53)
[2018-11-18] MEDS: INSULIN ASPART (NovoLOG) 100 UNIT/ML VIAL SQ SCH ×3 (09:53→18:03)
[2018-11-18] MEDS: ENOXAPARIN 40 MG/0.4 ML SYRINGE SQ SCH (09:54)
[2018-11-18] MEDS: ASCORBIC ACID 500 MG TAB PO SCH (09:54)
[2018-11-18] MEDS: FUROSEMIDE 20 MG TAB PO SCH (09:54)
[2018-11-18] MEDS: CHOLESTYRAMINE (WITH SUGAR) 4 GM PACKET PO SCH (09:54)
[2018-11-18] MEDS: DORZOLAMIDE HCL 2% DROPS 10 ML BTL BOTH EYES SCH (09:58)
[2018-11-18] MEDS: SODIUM CHLORIDE 0.9% 1,000 ML IV SCH (10:07)
[2018-11-18] MEDS: MULTIVITAMINS, THERA 1 EACH TAB PO SCH (10:07)
[2018-11-18 11:53] LABS: Glucose,Whole Blood 122 mg/dL (75-99)
[2018-11-18 14:43] VITALS: BP 141/61; PULSE 57; RESP 16; TEMP 98
[2018-11-18 16:58] LABS: Glucose,Whole Blood 229 mg/dL (75-99)
--- NOTE | 2018-11-18 18:01 | P.DS ---
Providers Date of admission: 11/16/18 17:50 Expected date of discharge: 11/18/18 Attending physician: Aurea Wharton MD Consults: 11/16/18 22:17 Consult Physician Urgent Consulting Provider: Zeke Shea Consult Reason/Comments: C diff colitis Do you want consulting provider notified?: Yes Primary care physician: Sang Campbell - Discharge Diagnosis(es) (1) C. difficile diarrhea Status: Acute (2) Bradycardia Status: Acute (3) Primary colorectal adenocarcinoma Status: Acute Priority: High (4) Essential hypertension Status: Acute (5) Iron deficiency anemia Status: Acute Hospital Course: he patient is an 88 yo M with a PMH of recently diagnosed rectal adenocarcinoma (without metastasis), being followed by Dr Ramirez, dementia, CAD, DM, and HTN with a recent admission from 11/07/18 for [facility] with diarrhea and suspected UTI, subsequent diagnosis of C. diff colitis and was started on oral vancomycin with plans of undergoing palliative radiation was discharged 11/15/18 to home after his diarrhea had improved and he was to continue on oral vancomycin and cholestyramine. The patient was subsequently readmitted for increasing weakness without any improvement in the frequency of his diarrhea, the patient was continued on his home regimen including oral vancomycin and cholestyramine. The patient continued to have numerous bowel movements which are described as soft loose with the pudding-like consistency. ID was consulted, repeat his C. diff was negative. The patient's blood pressure was noted to be elevated and his regimen was titrated up, his atenolol was discontinued secondary to bradycardia. It was thought that this is ongoing diarrhea may be related to his underlying rectal adenocarcinoma. The patient and his family elected to proceed with hospice, they contacted Dr. Bravo who was amenable to proceed with palliative radiation while the patient is on hospice. Patient was transitioned to inpatient hospice in stable condition after nearly completing his course of oral vancomycin for C. diff. He was tolerating approximately 75% of his meals. Discussion with the family that we will continue all of his chronic medications and 1 more day of antibiotics. This discharge process took approximately 35 minutes Focused exam GI: Soft nontender nondistended normal bowel sounds all 4 quadrants Patient Condition at Discharge: Stable Plan - Discharge Summary New Discharge Prescriptions: New Isosorbide Mononitrate ER [Imdur] 60 mg PO DAILY #30 tab.er.24h Lisinopril [Zestril] 10 mg PO HS #30 tab Continue Ranitidine HCl 150 mg PO HS Nitroglycerin Sl Tabs [Nitrostat] 0.4 mg SUBLINGUAL Q5M PRN PRN Reason: Chest Pain Multivitamins, Thera [Multivitamin (formulary)] 1 tab PO DAILY Dorzolamide HCl/Pf [Dorzolamide 2% Eye Drop] 1 drop BOTH EYES BID Furosemide [Lasix] 20 mg PO DAILY Calcium Carbonate [Calcium] 600 mg PO DAILY Aspirin 325 mg PO DAILY Insulin Aspart Protam & Aspart [NovoLOG MIX 70-30 Flexpen] 26 unit SQ QAM Insulin Aspart Protam & Aspart [NovoLOG MIX 70-30 Flexpen] 10 unit SQ HS Ascorbic Acid [Vitamin C] 500 mg PO DAILY Vancomycin Oral Solution 125 mg PO Q6HR #100 ml Cholestyramine (with Sugar) [Cholestyramine Packet] 4 gm PO BID #30 pack Discontinued Isosorbide Mononitrate [Isosorbide Mononitrate ER] 30 mg PO DAILY Benazepril [Lotensin] 5 mg PO HS Atenolol [Tenormin] 25 mg PO DAILY PRN PRN Reason: HEART RATE >50 Discharge Medication List Aspirin 325 mg PO DAILY 10/19/18 [History] Calcium Carbonate [Calcium] 600 mg PO DAILY 10/19/18 [History] Dorzolamide HCl/Pf [Dorzolamide 2% Eye Drop] 1 drop BOTH EYES BID 10/19/18 [History] Furosemide [Lasix] 20 mg PO DAILY 10/19/18 [History] Insulin Aspart Protam & Aspart [NovoLOG MIX 70-30 Flexpen] 10 unit SQ HS 10/19/18 [History] Insulin Aspart Protam & Aspart [NovoLOG MIX 70-30 Flexpen] 26 unit SQ QAM 10/19/18 [History] Multivitamins, Thera [Multivitamin (formulary)] 1 tab PO DAILY 10/19/18 [History] Nitroglycerin Sl Tabs [Nitrostat] 0.4 mg SUBLINGUAL Q5M PRN 10/19/18 [History] Ranitidine HCl 150 mg PO HS 10/19/18 [History] Ascorbic Acid [Vitamin C] 500 mg PO DAILY 11/07/18 [History] Cholestyramine (with Sugar) [Cholestyramine Packet] 4 gm PO BID #30 pack 11/11/18 [Rx] Vancomycin Oral Solution 125 mg PO Q6HR #100 ml 11/11/18 [Rx] Isosorbide Mononitrate ER [Imdur] 60 mg PO DAILY #30 tab.er.24h 11/18/18 [Rx] Lisinopril [Zestril] 10 mg PO HS #30 tab 11/18/18 [Rx] Follow up Appointment(s)/Referral(s): Mac Syed MD [STAFF PHYSICIAN] - 1 Week Sang Campbell MD [Primary Care Provider] - 1-2 days Carlos Fan MD [STAFF PHYSICIAN] - 1 Week [facility] Visiting Nurse, [NON-STAFF] - Discharge Disposition: ADMITTED IP TO THIS HOSP
[2018-11-18] MEDS ORDERED: LISINOPRIL 10 MG TAB PO SCH (21:00)
== END 2018-11-18 17:43 | disposition hospice, inpatient (51) | DRG 372 ==
LOC: EC 14:52 → 4MS4W 17:50
PROVIDERS: ADMIT Family Medicine; ATTEND Family Medicine
DX: A04.72 Enterocolitis due to Clostridium difficile, not specified as recurrent (principal); C19 Malignant neoplasm of rectosigmoid junction; E11.9 Type 2 diabetes mellitus without complications; F03.90 Unspecified dementia, unspecified severity, without behavioral disturbance, psychotic disturbance, mood disturbance, and anxiety; R00.1 Bradycardia, unspecified; D63.0 Anemia in neoplastic disease; I10 Essential (primary) hypertension; I25.10 Atherosclerotic heart disease of native coronary artery without angina pectoris; K21.9 Gastro-esophageal reflux disease without esophagitis; R32 Unspecified urinary incontinence; D50.9 Iron deficiency anemia, unspecified; R01.1 Cardiac murmur, unspecified; Z51.5 Encounter for palliative care; Z79.4 Long term (current) use of insulin; Z79.82 Long term (current) use of aspirin; Z79.899 Other long term (current) drug therapy; Z87.891 Personal history of nicotine dependence; Z95.5 Presence of coronary angioplasty implant and graft
CPT/HCPCS: 36415; 74019; 80048; 80053; 81001; 85025; 85027; 87324; 96360; 99285

== ENCOUNTER 2018-11-18 17:39 | Inpatient (IN) | payer MEDICAID ==
[2018-11-18] MEDS ORDERED: LORazepam 0.5 MG TAB PO PRN (17:40)
[2018-11-18] MEDS ORDERED: ACETAMINOPHEN SUPPOSITORY 650 MG SUPP RECTAL PRN (17:40)
[2018-11-18] MEDS ORDERED: ONDANSETRON 4 MG/2 ML VIAL IVP PRN (17:40)
[2018-11-18] MEDS: VANCOMYCIN ORAL SOLUTION 250 MG/5 ML BOTTLE PO SCH (18:30)
[2018-11-18 20:39] LABS: Glucose,Whole Blood 147 mg/dL (75-99)
[2018-11-18] MEDS ORDERED: LISINOPRIL 10 MG TAB PO SCH (21:00)
[2018-11-18] MEDS: CHOLESTYRAMINE (WITH SUGAR) 4 GM PACKET PO SCH (21:04)
[2018-11-18] MEDS: INSULN ASP PRT/INSULIN ASPART 100 UNIT/ML 10 ML VIAL SQ SCH (21:10)
[2018-11-18] MEDS: INSULIN ASPART (NovoLOG) 100 UNIT/ML VIAL SQ SCH (21:10)
[2018-11-18] MEDS: DORZOLAMIDE HCL 2% DROPS 10 ML BTL BOTH EYES SCH (21:13)
[2018-11-19] MEDS: VANCOMYCIN ORAL SOLUTION 250 MG/5 ML BOTTLE PO SCH ×4 (00:21→18:27)
[2018-11-19 02:01] LABS: Glucose,Whole Blood 103 mg/dL (75-99)
[2018-11-19 07:15] LABS: Glucose,Whole Blood 129 mg/dL (75-99)
[2018-11-19] MEDS: INSULIN ASPART (NovoLOG) 100 UNIT/ML VIAL SQ SCH ×4 (08:30→20:48)
[2018-11-19] MEDS: CHOLESTYRAMINE (WITH SUGAR) 4 GM PACKET PO SCH ×2 (08:44→20:35)
[2018-11-19] MEDS: FUROSEMIDE 20 MG TAB PO SCH (08:44)
[2018-11-19] MEDS: ISOSORBIDE MONONITRATE ER 60 MG TAB.ER.24H PO SCH (08:44)
[2018-11-19] MEDS: DORZOLAMIDE HCL 2% DROPS 10 ML BTL BOTH EYES SCH ×2 (08:45→20:56)
[2018-11-19] MEDS: HYDROCHLOROTHIAZIDE 12.5 MG CAP PO SCH (09:16)
[2018-11-19 11:47] LABS: Glucose,Whole Blood 308 mg/dL (75-99)
--- NOTE | 2018-11-19 12:49 | P.HPIM ---
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 diff colitis and was started on oral vancomycin with plans of undergoing palliative radiation was discharged 11/15/18 to home after his diarrhea had improved and he was to continue on oral vancomycin and cholestyramine. The patient was subsequently readmitted for increasing weakness without any improvement in the frequency of his diarrhea, the patient was continued on his home regimen including oral vancomycin and cholestyramine. The patient continued to have numerous bowel movements which are described as soft loose with the pudding-like consistency. ID was consulted, repeat his C. diff was negative. The patient's blood pressure was noted to be elevated and his regimen was titrated up, his atenolol was discontinued secondary to bradycardia. It was thought that this is ongoing diarrhea may be related to his underlying rectal adenocarcinoma. The patient and his family elected to proceed with hospice, they contacted Dr. Bravo who was amenable to proceed with palliative radiation while the patient is on hospice. Patient was transitioned to inpatient hospice in stable condition after nearly completing his course of oral vancomycin for C. diff. He was tolerating approximately 75% of his meals. Discussion with the family that we will continue all of his chronic medications and 1 more day of antibiotics. Review of Systems pertinent positives per HPI, all other ROS are otherwise negative Past Medical History Past Medical History: Coronary Artery Disease (CAD), Cancer, Dementia, Diabetes Mellitus, GERD/Reflux, Hypertension Additional Past Medical History / Comment(s): frequent diarrhea with bleeding at the beginning x4 mos-buttocks and coccyx raw,pedal edema,incontinent urine,payton catheter present-following with Dr Fan-very dark urine with foul odor History of Any Multi-Drug Resistant Organisms: None Reported Date of last positivie culture/infection: 11/08/2018 MDRO Source:: stool Past Surgical History: Heart Catheterization With Stent, Orthopedic Surgery Additional Past Surgical History / Comment(s): heart stents x4, right knee Past Anesthesia/Blood Transfusion Reactions: No Reported Reaction Additional Past Anesthesia/Blood Transfusion Reaction / Comment(s): never has had general anesthesia Date of Last Stent Placement:: 30yrs ago Past Psychological History: No Psychological Hx Reported Additional Psychological History / Comment(s): to his second of 52 years. Retired. No international travel. No animals in the home. Adult bibiana sanchez are very engaged and helpful. No tobacco use Smoking Status: Former smoker Past Alcohol Use History: None Reported Additional Past Alcohol Use History / Comment(s): quit smoking cigars 10-15 yrs ago,smoked occas Past Drug Use History: None Reported - Past Family History Mother Family Medical History: No Reported History Father Family Medical History: Hyperlipidemia Medications and Allergies Home Medications Medication Instructions Recorded Confirmed Type Aspirin 325 mg PO DAILY 10/19/18 11/18/18 History Calcium Carbonate [Calcium] 600 mg PO DAILY 10/19/18 11/18/18 History Dorzolamide HCl/Pf [Dorzolamide 2% 1 drop BOTH EYES BID 10/19/18 11/18/18 History Eye Drop] Furosemide [Lasix] 20 mg PO DAILY 10/19/18 11/18/18 History Insulin Aspart Protam & Aspart 10 unit SQ HS 10/19/18 11/18/18 History [NovoLOG MIX 70-30 Flexpen] Insulin Aspart Protam & Aspart 26 unit SQ QAM 10/19/18 11/18/18 History [NovoLOG MIX 70-30 Flexpen] Multivitamins, Thera [Multivitamin 1 tab PO DAILY 10/19/18 11/18/18 History (formulary)] Nitroglycerin Sl Tabs [Nitrostat] 0.4 mg SUBLINGUAL Q5M PRN 10/19/18 11/18/18 History Ranitidine HCl 150 mg PO HS 10/19/18 11/18/18 History Ascorbic Acid [Vitamin C] 500 mg PO DAILY 11/07/18 11/18/18 History Cholestyramine (with Sugar) 4 gm PO BID #30 pack 11/11/18 11/18/18 Rx [Cholestyramine Packet] Vancomycin Oral Solution 125 mg PO Q6HR #100 ml 11/11/18 11/18/18 Rx Isosorbide Mononitrate ER [Imdur] 60 mg PO DAILY #30 tab.er.24h 11/18/18 11/18/18 Rx Lisinopril [Zestril] 10 mg PO HS #30 tab 11/18/18 11/18/18 Rx Allergies Allergy/AdvReac Type Severity Reaction Status Date / Time No Known Allergies Allergy Verified 11/18/18 19:06 Physical Exam Vitals: Vital Signs Temp Pulse Resp BP Pulse Ox 11/19/18 07:27 98.3 F 57 L 16 158/56 95 11/19/18 05:00 98.1 F 60 18 167/63 96 Intake and Output 11/18/18 11/19/18 11/19/18 22:59 06:59 14:59 Intake Total 300 200 Output Total 150 600 600 Balance 150 -400 -600 Intake: Oral 300 200 Output: Urine 150 600 600 Other: Voiding Method Indwelling Catheter # Bowel Movements 2 6 1 Weight 68 kg Constitutional: No acute distress, conversant, pleasant Eyes: Anicteric sclerae, moist conjunctiva, no lid-lag, PERRLA ENMT: NC/AT,Oropharynx clear, no erythema, exudates Neck:Supple, FROM, no masses, or JVD, No carotid bruits; No thyromegaly Lungs: Clear to auscultation, Clear to percussion, Normal respiratory effort, no accessory muscle use Cardiovascular: Heart regular in rate and rhythm, No murmurs, gallops, or rubs no peripheral edema Abdominal: Soft Nontender, nom distended, no guarding, no rebound or rigidity, Normoactive bowel sounds No hepatomegaly, No splenomegaly, No palpable mass No abdominal wall hernia noted Skin: Normal temperature, tone, texture, turgor, No induration No subcutaneous nodules, No rash, lesions, No ulcers Extremities:No digital cyanosis No clubbing, Pedal pulses intact and symmetrical Radial pulses intact and symmetrical Normal gait and station, No calf tenderness Psychiatric: Alert and oriented to place person and situation Appropriate affect Intact judgement Neuro: Muscles Strength 5/5 in all 4 extremities, Sensation to light touch grossly present throughout, Cranial nerves II-XII grossly intact. No focal sensory deficits Results Labs: Abnormal Lab Results - Last 24 Hours (Table) 11/18/18 11/19/18 11/19/18 Range/Units 20:20 01:56 07:05 POC Glucose (mg/dL) 147 H 103 H 129 H (75-99) mg/dL 11/19/18 Range/Units 11:32 POC Glucose (mg/dL) 308 H (75-99) mg/dL Assessment and Plan (1) Primary colorectal adenocarcinoma Current Visit: No Status: Acute Priority: High Code(s): C19 - MALIGNANT NEOPLASM OF RECTOSIGMOID JUNCTION SNOMED Code(s): 163742238 (2) C. difficile diarrhea Current Visit: No Status: Acute Code(s): A04.72 - ENTEROCOLITIS D/T CLOSTRIDIUM DIFFICILE, NOT SPCF RECUR SNOMED Code(s): 2242341221355 (3) Essential hypertension Current Visit: No Status: Acute Code(s): I10 - ESSENTIAL (PRIMARY) HYPERTENSION SNOMED Code(s): 07367964 (4) Weakness Current Visit: No Status: Acute Code(s): R53.1 - WEAKNESS SNOMED Code(s): 85923088 Plan: The patient is admitted and transition to inpatient hospice care with plans for discharge on Wednesday with hospice secondary to primary colorectal adenocarcinoma with ongoing diarrhea and previously treated C. diff. We'll continue oral vancomycin with cholestyramine until Wednesday. Patient's blood pressure is elevated titrated up His regimen for better control and added HCTZ to his regimen. Patient otherwise medically stable is eating meals but continues to have his diarrhea without significant improvement. We'll continue to monitor and follow until he is discharged to hospice . The patient is admitted with an anticipated greater than 2 midnight stay for evaluation of diarrhea. CODE STATUS:No Code Discussed with: Patient, daughter, Anticipated discharge date: 11/19/[address]: Home A total of 45 minutes was spent on the care of this complex patient more than 50% of the time was spent in counseling and care coordination.
[2018-11-19 17:10] LABS: Glucose,Whole Blood 218 mg/dL (75-99)
[2018-11-19 20:22] LABS: Glucose,Whole Blood 225 mg/dL (75-99)
[2018-11-19] MEDS: LISINOPRIL 20 MG TAB PO SCH (20:35)
[2018-11-19] MEDS: INSULN ASP PRT/INSULIN ASPART 100 UNIT/ML 10 ML VIAL SQ SCH (20:49)
[2018-11-20] MEDS: VANCOMYCIN ORAL SOLUTION 250 MG/5 ML BOTTLE PO SCH ×4 (00:40→17:15)
[2018-11-20 07:13] LABS: Glucose,Whole Blood 100 mg/dL (75-99)
[2018-11-20] MEDS: INSULIN ASPART (NovoLOG) 100 UNIT/ML VIAL SQ SCH ×4 (07:48→22:37)
[2018-11-20] MEDS: FUROSEMIDE 20 MG TAB PO SCH (07:54)
[2018-11-20] MEDS: DORZOLAMIDE HCL 2% DROPS 10 ML BTL BOTH EYES SCH ×2 (07:54→22:38)
[2018-11-20] MEDS: ISOSORBIDE MONONITRATE ER 60 MG TAB.ER.24H PO SCH (07:54)
[2018-11-20] MEDS: CHOLESTYRAMINE (WITH SUGAR) 4 GM PACKET PO SCH ×2 (07:54→22:37)
[2018-11-20] MEDS: HYDROCHLOROTHIAZIDE 12.5 MG CAP PO SCH (07:54)
--- NOTE | 2018-11-20 09:27 | P.PN ---
Subjective Progress Note Date: 11/20/18 patient seen and examined was resting well denies any complaints apparently no episodes of diarrhea overnight, and quantitated and manual blood pressure elevated this morning. No acute events overnight Objective - Vital Signs Vital signs: Vital Signs Temp 98.0 F 11/20/18 05:00 Pulse 60 11/20/18 05:00 Resp 18 11/20/18 05:00 BP 162/74 11/20/18 07:54 Pulse Ox 98 11/20/18 05:00 Intake & Output 11/19/18 11/20/18 11/20/18 18:59 06:59 18:59 Intake Total 540 350 Output Total 1800 1800 Balance -1260 -1450 Intake: Oral 540 350 Output: Urine 1800 1800 Other: Voiding Method Indwelling Catheter Indwelling Catheter Indwelling Catheter # Bowel Movements 1 0 - Exam Constitutional: No acute distress, conversant, pleasant Eyes: Anicteric sclerae, moist conjunctiva, no lid-lag, PERRLA ENMT: NC/AT,Oropharynx clear, no erythema, exudates Neck:Supple, FROM, no masses, or JVD, No carotid bruits; No thyromegaly Lungs: Clear to auscultation, Clear to percussion, Normal respiratory effort, no accessory muscle use Cardiovascular: Heart regular in rate and rhythm, No murmurs, gallops, or rubs no peripheral edema Abdominal: Soft Nontender, nom distended, no guarding, no rebound or rigidity, Normoactive bowel sounds No hepatomegaly, No splenomegaly, No palpable mass No abdominal wall hernia noted Skin: Normal temperature, tone, texture, turgor, No induration No subcutaneous nodules, No rash, lesions, No ulcers Extremities:No digital cyanosis No clubbing, Pedal pulses intact and symmetrical Radial pulses intact and symmetrical Normal gait and station, No calf tenderness Psychiatric: Alert and oriented to place person and situation Appropriate affect Intact judgement Neuro: Muscles Strength 5/5 in all 4 extremities, Sensation to light touch grossly present throughout, Cranial nerves II-XII grossly intact. No focal sensory deficits - Labs Labs: Abnormal Lab Results - Last 24 Hours (Table) 11/19/18 11/19/18 11/19/18 Range/Units 11:32 16:45 20:14 POC Glucose (mg/dL) 308 H 218 H 225 H (75-99) mg/dL 11/20/18 Range/Units 07:02 POC Glucose (mg/dL) 100 H (75-99) mg/dL Assessment and Plan (1) Primary colorectal adenocarcinoma Narrative/Plan: * Patient transitioning to hospice * Planning on palliative radiation with Dr. Bravo Current Visit: No Status: Acute Priority: High Code(s): C19 - MALIGNANT NEOPLASM OF RECTOSIGMOID JUNCTION SNOMED Code(s): 205295153 (2) C. difficile diarrhea Narrative/Plan: * Continue current regimen with oral vancomycin and Questran Current Visit: No Status: Acute Code(s): A04.72 - ENTEROCOLITIS D/T CLOSTRIDIUM DIFFICILE, NOT SPCF RECUR SNOMED Code(s): 6061701032556 (3) Essential hypertension Narrative/Plan: * Blood pressure elevated this morning has not received his morning medications * Continue current regimen and continue to monitor closely Current Visit: No Status: Acute Code(s): I10 - ESSENTIAL (PRIMARY) HYPERTENSION SNOMED Code(s): 57583374 (4) Weakness Narrative/Plan: * Improving daily with PT Current Visit: No Status: Acute Code(s): R53.1 - WEAKNESS SNOMED Code(s): 64097309 Plan: The patient is admitted and transition to inpatient hospice care with plans for discharge on Wednesday with hospice secondary to primary colorectal adenocarcinoma with ongoing diarrhea and previously treated C. diff. We'll continue oral vancomycin with cholestyramine until Wednesday. Patient's blood pressure is elevated titrated up His regimen for better control and added HCTZ to his regimen. Patient otherwise medically stable is eating meals but continues to have his diarrhea without significant improvement. We'll continue to monitor and follow until he is discharged to hospice . The patient is admitted with an anticipated greater than 2 midnight stay for evaluation of diarrhea. CODE STATUS:No Code Discussed with: Patient, daughter, Anticipated discharge date: 11/19/[address]: Home A total of 45 minutes was spent on the care of this complex patient more than 50% of the time was spent in counseling and care coordination.
[2018-11-20 12:04] LABS: Glucose,Whole Blood 192 mg/dL (75-99)
[2018-11-20] MEDS: CHERRY FLAVOR 60 ML BOTTLE PO PRN ×2 (13:05→17:15)
[2018-11-20 16:57] LABS: Glucose,Whole Blood 238 mg/dL (75-99)
[2018-11-20 20:46] LABS: Glucose,Whole Blood 191 mg/dL (75-99)
[2018-11-20] MEDS: LISINOPRIL 20 MG TAB PO SCH (22:37)
[2018-11-20] MEDS: INSULN ASP PRT/INSULIN ASPART 100 UNIT/ML 10 ML VIAL SQ SCH (22:37)
[2018-11-21 01:58] LABS: Glucose,Whole Blood 54 mg/dL (75-99)
[2018-11-21 02:51] LABS: Glucose,Whole Blood 80 mg/dL (75-99)
[2018-11-21 06:21] VITALS: BP 171/76; PULSE 56; RESP 12; TEMP 98.4
[2018-11-21 07:21] LABS: Glucose,Whole Blood 91 mg/dL (75-99)
[2018-11-21] MEDS: FUROSEMIDE 20 MG TAB PO SCH (07:44)
[2018-11-21] MEDS: DORZOLAMIDE HCL 2% DROPS 10 ML BTL BOTH EYES SCH (07:44)
[2018-11-21] MEDS: INSULIN ASPART (NovoLOG) 100 UNIT/ML VIAL SQ SCH ×2 (07:44→13:27)
[2018-11-21] MEDS: HYDROCHLOROTHIAZIDE 12.5 MG CAP PO SCH (07:44)
[2018-11-21] MEDS: CHOLESTYRAMINE (WITH SUGAR) 4 GM PACKET PO SCH (07:44)
[2018-11-21] MEDS: ISOSORBIDE MONONITRATE ER 60 MG TAB.ER.24H PO SCH (07:44)
[2018-11-21] MEDS ORDERED: ATENOLOL 12.5 MG TAB PO SCH (09:00)
--- NOTE | 2018-11-21 09:19 | P.DS ---
Providers Date of admission: 11/18/18 17:51 Expected date of discharge: 11/21/18 Attending physician: Maulik Posada MD Primary care physician: Sang Campbell - Discharge Diagnosis(es) (1) Primary colorectal adenocarcinoma Current Visit: No Status: Acute Priority: High (2) C. 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 diff colitis and was started on oral vancomycin with plans of undergoing palliative radiation was discharged 11/15/18 to home after his diarrhea had improved and he was to continue on oral vancomycin and cholestyramine. The patient was subsequently readmitted for increasing weakness without any improvement in the frequency of his diarrhea, the patient was continued on his home regimen including oral vancomycin and cholestyramine. The patient continued to have numerous bowel movements which are described as soft loose with the pudding-like consistency. ID was consulted, repeat his C. diff was negative. The patient's blood pressure was noted to be elevated and his regimen was titrated up, his atenolol was discontinued secondary to bradycardia. It was thought that this is ongoing diarrhea may be related to his underlying rectal adenocarcinoma. The patient and his family elected to proceed with hospice, they contacted Dr. Bravo who was amenable to proceed with palliative radiation while the patient is on hospice. Patient was transitioned to inpatient hospice in stable condition after nearly completing his course of oral vancomycin for C. diff. He was tolerating approximately 75% of his meals. Discussion with the family that we will continue all of his chronic medications and 2 more day of antibiotics. Patient's blood pressure regimen was changed and his beta bony was decreased secondary to bradycardia. Patient is transferred out to resume his hospice services This discharge process took approximately 35 minutes. Focused exam GI: Soft nontender nondistended normal active bowel sounds all 4 quadrants Patient Condition at Discharge: Good Plan - Discharge Summary New Discharge Prescriptions: New Hydrochlorothiazide [Hydrodiuril] 12.5 mg PO DAILY #30 cap Atenolol [Tenormin] 12.5 mg PO DAILY #30 dose Lisinopril [Zestril] 20 mg PO HS #30 tab Continue Ranitidine HCl 150 mg PO HS Nitroglycerin Sl Tabs [Nitrostat] 0.4 mg SUBLINGUAL Q5M PRN PRN Reason: Chest Pain Multivitamins, Thera [Multivitamin (formulary)] 1 tab PO DAILY Dorzolamide HCl/Pf [Dorzolamide 2% Eye Drop] 1 drop BOTH EYES BID Furosemide [Lasix] 20 mg PO DAILY Calcium Carbonate [Calcium] 600 mg PO DAILY Aspirin 325 mg PO DAILY Insulin Aspart Protam & Aspart [NovoLOG MIX 70-30 Flexpen] 26 unit SQ QAM Insulin Aspart Protam & Aspart [NovoLOG MIX 70-30 Flexpen] 10 unit SQ HS Ascorbic Acid [Vitamin C] 500 mg PO DAILY Vancomycin Oral Solution 125 mg PO Q6HR #100 ml Cholestyramine (with Sugar) [Cholestyramine Packet] 4 gm PO BID #30 pack Isosorbide Mononitrate ER [Imdur] 60 mg PO DAILY #30 tab.er.24h Discontinued Lisinopril [Zestril] 10 mg PO HS #30 tab Discharge Medication List Aspirin 325 mg PO DAILY 10/19/18 [History] Calcium Carbonate [Calcium] 600 mg PO DAILY 10/19/18 [History] Dorzolamide HCl/Pf [Dorzolamide 2% Eye Drop] 1 drop BOTH EYES BID 10/19/18 [History] Furosemide [Lasix] 20 mg PO DAILY 10/19/18 [History] Insulin Aspart Protam & Aspart [NovoLOG MIX 70-30 Flexpen] 10 unit SQ HS 10/19/18 [History] Insulin Aspart Protam & Aspart [NovoLOG MIX 70-30 Flexpen] 26 unit SQ QAM 10/19 [History] Multivitamins, Thera [Multivitamin (formulary)] 1 tab PO DAILY 10/19/18 [History] Nitroglycerin Sl Tabs [Nitrostat] 0.4 mg SUBLINGUAL Q5M PRN 10/19/18 [History] Ranitidine HCl 150 mg PO HS 10/19/18 [History] Ascorbic Acid [Vitamin C] 500 mg PO DAILY 11/07/18 [History] Cholestyramine (with Sugar) [Cholestyramine Packet] 4 gm PO BID #30 pack 11/11/18 [Rx] Vancomycin Oral Solution 125 mg PO Q6HR #100 ml 11/11/18 [Rx] Isosorbide Mononitrate ER [Imdur] 60 mg PO DAILY #30 tab.er.24h 11/18/18 [Rx] Atenolol [Tenormin] 12.5 mg PO DAILY #30 dose 11/21/18 [Rx] Hydrochlorothiazide [Hydrodiuril] 12.5 mg PO DAILY #30 cap 11/21/18 [Rx] Lisinopril [Zestril] 20 mg PO HS #30 tab 11/21/18 [Rx]
[2018-11-21 12:18] LABS: Glucose,Whole Blood 198 mg/dL (75-99)
== END 2018-11-21 16:57 | DRG 951 ==
LOC: 4MS4W 17:51
PROVIDERS: ADMIT Family Medicine; ATTEND Family Medicine
DX: Z51.5 Encounter for palliative care (principal); C19 Malignant neoplasm of rectosigmoid junction; A04.72 Enterocolitis due to Clostridium difficile, not specified as recurrent; Z66 Do not resuscitate; E11.9 Type 2 diabetes mellitus without complications; F03.90 Unspecified dementia, unspecified severity, without behavioral disturbance, psychotic disturbance, mood disturbance, and anxiety; K21.9 Gastro-esophageal reflux disease without esophagitis; I25.10 Atherosclerotic heart disease of native coronary artery without angina pectoris; I10 Essential (primary) hypertension; R53.1 Weakness; R00.1 Bradycardia, unspecified; R32 Unspecified urinary incontinence; Z79.82 Long term (current) use of aspirin; Z79.4 Long term (current) use of insulin; Z79.899 Other long term (current) drug therapy; Z95.5 Presence of coronary angioplasty implant and graft; Z87.891 Personal history of nicotine dependence; Z83.49 Family history of other endocrine, nutritional and metabolic diseases

== ENCOUNTER 2018-11-26 04:19 | Emergency (ER) | payer MEDICAID, MEDICARE ==
--- NOTE | 2018-11-26 04:24 | ED ---
Male Urogenital HPI - General Stated complaint: urogenital Time Seen by Provider: 11/26/18 04:24 - History of Present Illness Initial comments: Fredo is an 88-year-old gentleman with advanced dementia, rectal cancer who has a long-term indwelling Payton catheter. Patient apparently inadvertently pulled out his Payton catheter today and was noted to have bleeding on the penis and was transferred to the ER for further evaluation. - Related Data Home Medications Medication Instructions Recorded Confirmed Aspirin 325 mg PO DAILY 10/19/18 11/18/18 Calcium Carbonate [Calcium] 600 mg PO DAILY 10/19/18 11/18/18 Dorzolamide HCl/Pf [Dorzolamide 2% 1 drop BOTH EYES BID 10/19/18 11/18/18 Eye Drop] Furosemide [Lasix] 20 mg PO DAILY 10/19/18 11/18/18 Insulin Aspart Protam & Aspart 10 unit SQ HS 10/19/18 11/18/18 [NovoLOG MIX 70-30 Flexpen] Insulin Aspart Protam & Aspart 26 unit SQ QAM 10/19/18 11/18/18 [NovoLOG MIX 70-30 Flexpen] Multivitamins, Thera [Multivitamin 1 tab PO DAILY 10/19/18 11/18/18 (formulary)] Nitroglycerin Sl Tabs [Nitrostat] 0.4 mg SUBLINGUAL Q5M PRN 10/19/18 11/18/18 Ranitidine HCl 150 mg PO HS 10/19/18 11/18/18 Ascorbic Acid [Vitamin C] 500 mg PO DAILY 11/07/18 11/18/18 Previous Rx's Medication Instructions Recorded Cholestyramine (with Sugar) 4 gm PO BID #30 pack 11/11/18 [Cholestyramine Packet] Vancomycin Oral Solution 125 mg PO Q6HR #100 ml 11/11/18 Isosorbide Mononitrate ER [Imdur] 60 mg PO DAILY #30 tab.er.24h 11/18/18 Atenolol [Tenormin] 12.5 mg PO DAILY #30 dose 11/21/18 Hydrochlorothiazide [Hydrodiuril] 12.5 mg PO DAILY #30 cap 11/21/18 Lisinopril [Zestril] 20 mg PO HS #30 tab 11/21/18 Allergies Allergy/AdvReac Type Severity Reaction Status Date / Time No Known Allergies Allergy Verified 11/26/18 04:25 Review of Systems ROS Statement: Those systems with pertinent positive or pertinent negative responses have been documented in the HPI. ROS Other: All systems not noted in ROS Statement are negative. Past Medical History Past Medical History: Coronary Artery Disease (CAD), Cancer, Dementia, Diabetes Mellitus, GERD/Reflux, Hypertension Additional Past Medical History / Comment(s): frequent diarrhea with bleeding at the beginning x4 mos-buttocks and coccyx raw,pedal edema,incontinent urine,payton catheter present-following with Dr Fan-very dark urine with foul odor History of Any Multi-Drug Resistant Organisms: None Reported Date of last positivie culture/infection: None MDRO Source:: None Past Surgical History: Heart Catheterization With Stent, Orthopedic Surgery Additional Past Surgical History / Comment(s): heart stents x4, right knee Past Anesthesia/Blood Transfusion Reactions: No Reported Reaction Additional Past Anesthesia/Blood Transfusion Reaction / Comment(s): never has had general anesthesia Date of Last Stent Placement:: 30yrs ago Past Psychological History: No Psychological Hx Reported Additional Psychological History / Comment(s): to his second of 52 years. Retired. No international travel. No animals in the home. Adult children are very engaged and helpful. No tobacco use Smoking Status: Former smoker Past Alcohol Use History: None Reported Additional Past Alcohol Use History / Comment(s): quit smoking cigars 10-15 yrs ago,smoked occas Past Drug Use History: None Reported - Past Family History Mother Family Medical History: No Reported History Father Family Medical History: Hyperlipidemia General Exam - General Exam Comments Initial Comments: Physical Exam GENERAL: Chronically ill-appearing HENT: Normocephalic, Atraumatic. EYES: PERRL, EOMI PULMONARY: Unlabored respirations CARDIOVASCULAR: RRR ABDOMEN: Soft and nontender with normal bowel sounds. SKIN: Skin is clear with no lesions or rashes and otherwise unremarkable. : Dark blood at uretheral meatus Payton catheter placed, small blood clot passed, yellow urine draining. 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 Patient will be discharged back to his senior living facility by ambulance. Disposition Clinical Impression: Payton catheter problem Disposition: HOME SELF-CARE Condition: Stable Instructions (If sedation given, give patient instructions): Payton Catheter Placement and Care (ED) Is patient prescribed a controlled substance at d/c from ED?: No Referrals: Sang Campbell MD [Primary Care Provider] - 1-2 days
[2018-11-26 04:36] VITALS: RESP 20
[2018-11-26 05:01] VITALS: BP 153/66; PULSE 50; TEMP 98
== END 2018-11-26 05:21 | disposition home or self-care (01) ==
LOC: EC 04:19
DX: T83.9XXA Unspecified complication of genitourinary prosthetic device, implant and graft, initial encounter (principal); I25.10 Atherosclerotic heart disease of native coronary artery without angina pectoris; E11.9 Type 2 diabetes mellitus without complications; K21.9 Gastro-esophageal reflux disease without esophagitis; I10 Essential (primary) hypertension; Z79.82 Long term (current) use of aspirin; Z79.4 Long term (current) use of insulin; Z79.899 Other long term (current) drug therapy; Z87.891 Personal history of nicotine dependence; Z95.5 Presence of coronary angioplasty implant and graft; Z85.048 Personal history of other malignant neoplasm of rectum, rectosigmoid junction, and anus
CPT/HCPCS: 99283